=== PATIENT | male | born 1950 | race Caucasian/White ===

== ENCOUNTER → 2016-09-25 | Outpatient (CLI) | payer OTHER, MEDICARE ==
[2015-11-14 13:41] VITALS: BP 154/86
--- NOTE | 2016-09-25 13:09 | RAD ---
HISTORY: Low back pain Study: AP and lateral lumbar spine Comparison: July 19, 2014 Findings: The alignment is normal. The vertebral bodies are of average height. The disc spaces are preserved w ith the exception of disc space narrowing at L5-S1. The pedicles are intact. The SI joints are carlene l. Facet degenerative joint disease is present bilaterally L4-5, L5-S1. IMPRESSION: Degenerative disc disease L5-S1. Facet degenerative joint disease bilaterally L4-5 Reported By:
== END | disposition home or self-care (01) | DRG 552 ==
LOC: RAD 11:55
PROVIDERS: ATTEND Obstetrics & Gynecology Obstetrics
DX: M54.5 Low back pain (principal); M51.37 Other intervertebral disc degeneration, lumbosacral region; M47.896 Other spondylosis, lumbar region
CPT/HCPCS: 72100

== ENCOUNTER 2017-03-21 18:11 | Inpatient (IN) | payer OTHER, MEDICARE ==
[2017-03-21] MEDS ORDERED: SOLU-Medrol 125 MG VIAL IVP ONE (18:26)
[2017-03-21] MEDS ORDERED: DUONEB 0.5 MG/3 MG NEB ONE ×2 (18:26→18:36)
[2017-03-21] MEDS ORDERED: SOLU-Medrol 125 MG VIAL ONE (18:29)
--- NOTE | 2017-03-21 18:34 | DR.GENAD ---
HPI - PCP Primary Care Physician: mendez - Complaint/Symptoms Chief Complaint:: patient stated he has been short of breath and flu like sx for about a week. - Nurses notes reviewed Nurses Notes Review: Yes - Source History Provided: Patient - Mode of Arrival Mode of Arrival: Ambulatory - Timing Onset of Chief Complaint: 03/13/17 Came on: Gradually - Duration Duration: Constant Duration: Days - Severity Severity: Moderate PMH - PMH Past Medical History: Yes Past Medical History: Anxiety, COPD, Dyslipidemia, Hypertension Past Surgical History: Yes Surgical History: CABG/Valve Surgery, Ortho Surgery - Family History History of Family Medical Conditions: Yes Family Medical History: Cancer, [place] - Social History Does any household member use tobacco: No Alcohol Use: Rarely Do you use any recreational Drugs:: No Lives With: Family Lives Where: Home - infectious screening In the last 2 months have you had wt loss of >10#?: NO Have you had fever, night sweats or hemotysis?: No Have you traveled outside the country in the last 6 months?: No Isolation: Standard PE - Vital Signs Vitals: Temperature 99.9 F Pulse Rate [Left] 82 Pulse Rate 118 Respiratory Rate 20 Blood Pressure [Right Arm] 167/74 Blood Pressure [Left Arm] 133/61 Blood Pressure 181/83 O2 Sat by Pulse Oximetry 93 ROR - Labs Reviewed Result Diagrams: 03/21/17 18:15 03/21/17 18:20 Laboratory: 03/21/17 18:40 Sputum - Expectorated Sputum - Final WBC 16.1 X10^3/uL (3.6-10.0) H 03/21/17 18:15 RBC 5.46 X10^6/uL (4.7-6.0) 03/21/17 18:15 Hgb 15.9 g/dL (13.5-18.0) 03/21/17 18:15 Hct 47.2 % (42.0-54.0) 03/21/17 18:15 MCV 86.5 fL (80.0-100.0) 03/21/17 18:15 MCH 29.1 pg (27.0-34.0) 03/21/17 18:15 MCHC 33.7 g/dL (33.0-35.0) 03/21/17 18:15 RDW 14.2 % (11.6-16.5) 03/21/17 18:15 Plt Count 299 X10^3/uL (150.0-450.0) 03/21/17 18:15 MPV 9.7 fL (7.4-11.0) 03/21/17 18:15 Neut % 73.4 % (42.0-75.0) 03/21/17 18:15 Lymph % 12.2 % (21.0-51.0) L 03/21/17 18:15 [place] % 12.8 % (0.0-13.0) 03/21/17 18:15 Eos % 0.4 % (0.9-2.9) L 03/21/17 18:15 Baso % 1.2 % (0.2-1.0) H 03/21/17 18:15 Neut # 11.8 x10^3/uL (2.2-4.8) H 03/21/17 18:15 Lymph # 2.0 X10^3/uL (1.3-2.9) 03/21/17 18:15 [place] # 2.0 x10^3/uL (0.3-0.8) H 03/21/17 18:15 Eos # 0.1 x10^3/uL (0.0-0.2) 03/21/17 18:15 Baso # 0.2 X10^3/uL (0.0-0.1) H 03/21/17 18:15 Absolute Nucleated RBC 0.0 /100WBC 03/21/17 18:15 Sodium 135 mmol/L (136-145) L 03/21/17 18:20 Corrected Sodium TNP 03/21/17 18:20 Potassium 3.5 mmol/L (3.5-5.1) 03/21/17 18:20 Chloride 101 mmol/L (98-107) 03/21/17 18:20 Carbon Dioxide 26.0 mmol/L (21-32) 03/21/17 18:20 BUN 17 mg/dL (7-18) 03/21/17 18:20 Creatinine 1.14 mg/dL (0.70-1.30) 03/21/17 18:20 Est GFR (MDRD) Af Amer > 60 (>60) 03/21/17 18:20 Est GFR (MDRD) Non-Af > 60 (>60) 03/21/17 18:20 Glucose 99 mg/dL (65-99) 03/21/17 18:20 Calcium 8.5 mg/dL (8.5-10.1) 03/21/17 18:20 Corrected Calcium 9.1 mg/dL (8.5-10.1) 03/21/17 18:20 Total Bilirubin 1.10 mg/dL (0.2-1.0) H 03/21/17 18:20 AST 16 Units/L (15-37) 03/21/17 18:20 ALT 27 Units/L (12-78) 03/21/17 18:20 Alkaline Phosphatase 55 Units/L (46-116) 03/21/17 18:20 Creatine Kinase 46 Units/L (39-308) 03/21/17 18:20 CK-MB (CK-2) < 1.0 ng/mL (0-4.0) 03/21/17 18:20 CK/CKMB % Calc 2.2 % (<4) 03/21/17 18:20 Troponin I < 0.02 ng/mL (0-1.5) 03/21/17 18:20 Total Protein 7.2 g/dL (6.4-8.2) 03/21/17 18:20 Albumin 3.2 g/dL (3.4-5.0) L 03/21/17 18:20 Globulin 4.0 g/dL (2.5-4.5) 03/21/17 18:20 Albumin/Globulin Ratio 0.8 Ratio (1.1-2.1) L 03/21/17 18:20 Specimen Type Clean catch urine 03/21/17 22:07 Urine Color Lisa (YELLOW) 03/21/17 22:07 Urine Appearance Clear (CLEAR) 03/21/17 22:07 Urine pH 5.0 (5.0 - 8.0) 03/21/17 22:07 Ur Specific [place] 1.015 (1.000-1.030) 03/21/17 22:07 Urine Protein 1+ (NEGATIVE) 03/21/17 22:07 Urine Glucose (UA) 4+ (NEGATIVE) 03/21/17 22:07 Urine Ketones 2+ (NEGATIVE) 03/21/17 22:07 Urine Occult Blood Negative (NEGATIVE) 03/21/17 22:07 Urine Nitrite Negative (NEGATIVE) 03/21/17 22:07 Urine Bilirubin Negative (NEGATIVE) 03/21/17 22:07 Urine Urobilinogen 1+ (NORMAL) 03/21/17 22:07 Ur Leukocyte Esterase 1+ (NEGATIVE) 03/21/17 22:07 Urine RBC None seen /HPF (NEGATIVE) 03/21/17 22:07 Urine WBC 0-2 /HPF (NEGATIVE) 03/21/17 22:07 Ur Squamous Epith Cells Few /HPF (NEGATIVE) 03/21/17 22:07 Urine Bacteria Trace /HPF (NEGATIVE) 03/21/17 22:07 Urine Mucus Numerous /HPF (NEGATIVE) 03/21/17 22:07 Ur Culture Indicated? No/not indicated 03/21/17 22:07 Influenza Type A (PCR) Negative (NEGATIVE) 03/21/17 18:40 Influenza Type B (PCR) Negative (NEGATIVE) 03/21/17 18:40 Streptococcus Screen Negative (NEGATIVE) 03/21/17 20:06 - Discharge Plan Condition: Stable - Follow ups/Referrals Follow ups/Referrals: MAGALY MENDEZ [Primary Care Provider] - 3 days - Instructions Instructions: Influenza, Adult, [id number] Additional Instructions: RETURN TO ED IF WORSE.
[2017-03-21 18:43] LABS: BASOPHILS # (AUTO) 0.2 X10^3/uL (0.0-0.1); BASOPHILS % (AUTO) 1.2 % (0.2-1.0); EOSINOPHILS # (AUTO) 0.1 x10^3/uL (0.0-0.2); EOSINOPHILS % (AUTO) 0.4 % (0.9-2.9); HEMATOCRIT 47.2 % (42.0-54.0); HEMOGLOBIN 15.9 g/dL (13.5-18.0); LYMPHOCYTES % (AUTO) 12.2 % (21.0-51.0); MEAN CORPUSCULAR HEMOGLOBIN 29.1 pg (27.0-34.0); MEAN CORPUSCULAR HGB CONC 33.7 g/dL (33.0-35.0); MEAN CORPUSCULAR VOLUME 86.5 fL (80.0-100.0); MEAN PLATELET VOLUME 9.7 fL (7.4-11.0); MONOCYTES % (AUTO) 12.8 % (0.0-13.0); NEUTROPHILS # (AUTO) 11.8 x10^3/uL (2.2-4.8); NEUTROPHILS % (AUTO) 73.4 % (42.0-75.0); PLATELET COUNT 299 X10^3/uL (150.0-450.0); RED BLOOD COUNT 5.46 X10^6/uL (4.7-6.0); RED CELL DISTRIBUTION WIDTH 14.2 % (11.6-16.5); WHITE BLOOD COUNT 16.1 X10^3/uL (3.6-10.0)
[2017-03-21 18:58] LABS: BLOOD UREA NITROGEN 17 mg/dL (7-18); CALCIUM 8.5 mg/dL (8.5-10.1); CHLORIDE 101 mmol/L (98-107); CREATININE 1.14 mg/dL (0.70-1.30); SODIUM 135 mmol/L (136-145); TROPONIN I < 0.02 ng/mL (0-1.5); eGFR BLACK RACES > 60 (>60); eGFR NON BLACK RACES > 60 (>60)
[2017-03-21 19:03] LABS: ALANINE AMINOTRANSFERASE 27 Units/L (12-78); ALBUMIN 3.2 g/dL (3.4-5.0); ALKALINE PHOSPHATASE 55 Units/L (46-116); ASPARTATE AMINO TRANSFERASE 16 Units/L (15-37); CKMB % 2.2 % (<4); COR CA(FOR HYPOALB) 9.1 mg/dL (8.5-10.1); CREATINE KINASE 46 Units/L (39-308); CREATINE KINASE MB < 1.0 ng/mL (0-4.0); TOTAL PROTEIN 7.2 g/dL (6.4-8.2)
--- NOTE | 2017-03-21 19:29 | RAD ---
PICC chest AP portable Indication: Dyspnea. Flu-like symptoms. Comparison: 07/21/2014 Findings: There is no pneumothorax or effusion. There is no consolidation. Sternotomy change noted. Impression: No acute chest process or change from the prior. Reported By:
[2017-03-21] MEDS ORDERED: ROCEPHIN 1 GM IV PREMIX 1 GM/50 ML IV.SOLN. IV ONE ×2 (20:07→20:09)
[2017-03-21 22:34] LABS: BILIRUBIN,URINE NEGATIVE (NEGATIVE); BLOOD/HEMOGLOBIN,URINE NEGATIVE (NEGATIVE); GLUCOSE, URINE 4+ (NEGATIVE); KETONES,URINE 2+ (NEGATIVE); LEUKOCYTE ESTERASE ,URINE 1+ (NEGATIVE); NITRITES,URINE NEGATIVE (NEGATIVE); PROTEIN,URINE 1+ (NEGATIVE); UROBILINOGEN,URINE 1+ (NORMAL)
[2017-03-21 23:00] LABS: APPEARANCE,URINE CLEAR (CLEAR); BACTERIA,URINE TRACE /HPF (NEGATIVE); COLOR,URINE AMBER (YELLOW); MUCUS,URINE NUMEROUS /HPF (NEGATIVE); RBC,URINE NONE SEEN /HPF (NEGATIVE); SQUAMOUS EPITHELIAL CELL,UR FEW /HPF (NEGATIVE)
[2017-03-21] MEDS ORDERED: TUSSIONEX PENNKINETIC SUSP PO PRN (23:11)
[2017-03-22] MEDS: CIPRO IV 400 MG PREMIX* 400 MG/200 ML IV.SOLN. IV SCH ×2 (00:27→10:47)
[2017-03-22] MEDS: NS 1000 ML 1,000 ML IV SCH ×2 (00:27→19:30)
[2017-03-22 01:01] VITALS: BMI 23.6
[2017-03-22] MEDS: DUONEB 0.5 MG/3 MG NEB SCH ×6 (01:25→20:57)
[2017-03-22 06:14] LABS: BASOPHILS # (AUTO) 0.1 X10^3/uL (0.0-0.1); BASOPHILS % (AUTO) 0.5 % (0.2-1.0); HEMATOCRIT 45.7 % (42.0-54.0); HEMOGLOBIN 15.3 g/dL (13.5-18.0); LYMPHOCYTES # (AUTO) 0.6 X10^3/uL (1.3-2.9); LYMPHOCYTES % (AUTO) 6.2 % (21.0-51.0); MEAN CORPUSCULAR HEMOGLOBIN 29.2 pg (27.0-34.0); MEAN CORPUSCULAR HGB CONC 33.4 g/dL (33.0-35.0); MEAN CORPUSCULAR VOLUME 87.2 fL (80.0-100.0); MONOCYTES # (AUTO) 0.6 x10^3/uL (0.3-0.8); MONOCYTES % (AUTO) 5.3 % (0.0-13.0); NEUTROPHILS # (AUTO) 9.1 x10^3/uL (2.2-4.8); PLATELET COUNT 288 X10^3/uL (150.0-450.0); RED BLOOD COUNT 5.24 X10^6/uL (4.7-6.0); RED CELL DISTRIBUTION WIDTH 14.1 % (11.6-16.5); WHITE BLOOD COUNT 10.4 X10^3/uL (3.6-10.0)
[2017-03-22 06:27] LABS: ALANINE AMINOTRANSFERASE 25 Units/L (12-78); ALKALINE PHOSPHATASE 52 Units/L (46-116); ASPARTATE AMINO TRANSFERASE 14 Units/L (15-37); BLOOD UREA NITROGEN 19 mg/dL (7-18); CALCIUM 8.7 mg/dL (8.5-10.1); CARBON DIOXIDE 26.6 mmol/L (21-32); CHLORIDE 100 mmol/L (98-107); COR CA(FOR HYPOALB) 9.5 mg/dL (8.5-10.1); COR NA(FOR HYPERGLY) 139 mmol/L (136-145); CREATININE 1.09 mg/dL (0.70-1.30); SODIUM 136 mmol/L (136-145); eGFR BLACK RACES > 60 (>60); eGFR NON BLACK RACES > 60 (>60)
[2017-03-22 07:11] LABS: CKMB % 3.1 % (<4); CREATINE KINASE 35 Units/L (39-308); CREATINE KINASE MB 1.1 ng/mL (0-4.0); TROPONIN I < 0.02 ng/mL (0-1.5)
[2017-03-22] MEDS ORDERED: SOLU-Medrol 40 MG VIAL IVP SCH ×2 (09:00→21:00)
[2017-03-22] MEDS ORDERED: ROCEPHIN 1 GM IV PREMIX 1 GM/50 ML IV.SOLN. IV SCH (09:00)
[2017-03-22] MEDS ORDERED: ROCEPHIN VIAL 1 GM 1 GM in NS 50 ML IV + SPIKE MINIBAG* 50 ML IV SCH (09:00)
[2017-03-22 11:15] LABS: CKMB % 3.1 % (<4); CREATINE KINASE 32 Units/L (39-308); CREATINE KINASE MB < 1.0 ng/mL (0-4.0); TROPONIN I < 0.02 ng/mL (0-1.5)
[2017-03-22] MEDS ORDERED: TYGACIL 50 MG VIAL 100 MG in NS 100 ML IV 100 ML IV ONE (11:23)
--- NOTE | 2017-03-22 13:06 | CT ---
History: Cough and fever and headache Study: CT of the paranasal sinuses. Sagittal and coronal reformations were provided. Findings: There is patchy mucosal thickening in the ethmoid sinuses. There are air-fluid levels in th e maxillary sinuses with mild mucosal thickening. There is focal septal deviation toward the left. Th e sphenoid and frontal sinuses are clear. The ostiomeatal complexes are obstructed with soft tissue d ensity. Impression: Maxillary and ethmoid sinusitis with obstructed ostiomeatal complexes. Reported By:
[2017-03-22] MEDS: FLONASE NASAL SPRAY ENOSTRIL SCH ×2 (14:04→21:04)
[2017-03-22] MEDS: FORTAZ or TAZICEF INJ 2 GM in NS 50 ML IV 50 ML IV SCH ×3 (15:09→21:04)
[2017-03-22] MEDS: TYGACIL 50 MG VIAL 50 MG in NS 100 ML IV 100 ML IV SCH (21:04)
[2017-03-22] MEDS: FLOMAX PO SCH (21:04)
[2017-03-22] MEDS ORDERED: MAALOX or MYLANTA PO PRN (22:25)
[2017-03-23] MEDS: DUONEB 0.5 MG/3 MG NEB SCH ×6 (00:50→21:15)
[2017-03-23 05:35] LABS: BASOPHILS % (AUTO) 0.2 % (0.2-1.0); HEMATOCRIT 41.4 % (42.0-54.0); HEMOGLOBIN 14.2 g/dL (13.5-18.0); LYMPHOCYTES % (AUTO) 5.3 % (21.0-51.0); MEAN CORPUSCULAR HEMOGLOBIN 30.3 pg (27.0-34.0); MEAN CORPUSCULAR HGB CONC 34.4 g/dL (33.0-35.0); MEAN CORPUSCULAR VOLUME 88.1 fL (80.0-100.0); MONOCYTES # (AUTO) 1.3 x10^3/uL (0.3-0.8); MONOCYTES % (AUTO) 6.9 % (0.0-13.0); NEUTROPHILS # (AUTO) 16.5 x10^3/uL (2.2-4.8); NEUTROPHILS % (AUTO) 87.6 % (42.0-75.0); PLATELET COUNT 302 X10^3/uL (150.0-450.0); RED CELL DISTRIBUTION WIDTH 13.8 % (11.6-16.5); WHITE BLOOD COUNT 18.8 X10^3/uL (3.6-10.0)
[2017-03-23 05:37] LABS: ALANINE AMINOTRANSFERASE 31 Units/L (12-78); ALBUMIN 2.6 g/dL (3.4-5.0); ALKALINE PHOSPHATASE 49 Units/L (46-116); ASPARTATE AMINO TRANSFERASE 18 Units/L (15-37); BLOOD UREA NITROGEN 22 mg/dL (7-18); CALCIUM 8.1 mg/dL (8.5-10.1); CARBON DIOXIDE 24.4 mmol/L (21-32); CHLORIDE 105 mmol/L (98-107); COR CA(FOR HYPOALB) 9.2 mg/dL (8.5-10.1); COR NA(FOR HYPERGLY) 139 mmol/L (136-145); SODIUM 138 mmol/L (136-145); eGFR BLACK RACES > 60 (>60); eGFR NON BLACK RACES > 60 (>60)
[2017-03-23] MEDS: FORTAZ or TAZICEF INJ 2 GM in NS 50 ML IV 50 ML IV SCH ×3 (05:42→22:20)
[2017-03-23] MEDS: NS 1000 ML 1,000 ML IV SCH ×3 (06:09→15:07)
[2017-03-23] MEDS ORDERED: ZOFRAN INJ 4 MG VIAL ONE (08:12)
[2017-03-23] MEDS ORDERED: ZOFRAN INJ 4 MG VIAL IVP PRN (08:12)
[2017-03-23] MEDS: TYGACIL 50 MG VIAL 50 MG in NS 100 ML IV 100 ML IV SCH ×2 (08:41→20:48)
[2017-03-23] MEDS: FLONASE NASAL SPRAY ENOSTRIL SCH ×2 (08:41→20:47)
[2017-03-23] MEDS ORDERED: PHENERGAN INJ 25 MG ONE (10:30)
[2017-03-23] MEDS ORDERED: PHENERGAN INJ 25 MG IV PRN (10:32)
[2017-03-23] MEDS ORDERED: TESSALON PERLES PO PRN (11:28)
[2017-03-23] MEDS ORDERED: AMBIEN PO PRN (11:29)
[2017-03-23] MEDS: SOLU-Medrol 125 MG VIAL IVP SCH ×2 (14:02→22:20)
[2017-03-23] MEDS: PROTONIX INJ 40 MG VIAL IVP SCH ×2 (14:03→20:47)
[2017-03-23] MEDS: FLOMAX PO SCH (20:47)
[2017-03-24] MEDS: DUONEB 0.5 MG/3 MG NEB SCH ×4 (01:20→13:29)
[2017-03-24] MEDS: FLONASE NASAL SPRAY ENOSTRIL SCH (04:00)
[2017-03-24] MEDS: NS 1000 ML 1,000 ML IV SCH (04:30)
[2017-03-24 05:07] LABS: BASOPHILS % (AUTO) 0.2 % (0.2-1.0); HEMATOCRIT 41.8 % (42.0-54.0); LYMPHOCYTES # (AUTO) 0.5 X10^3/uL (1.3-2.9); LYMPHOCYTES % (AUTO) 6.1 % (21.0-51.0); MEAN CORPUSCULAR HEMOGLOBIN 29.1 pg (27.0-34.0); MEAN CORPUSCULAR HGB CONC 33.4 g/dL (33.0-35.0); MEAN CORPUSCULAR VOLUME 87.2 fL (80.0-100.0); MONOCYTES # (AUTO) 0.2 x10^3/uL (0.3-0.8); MONOCYTES % (AUTO) 1.8 % (0.0-13.0); NEUTROPHILS # (AUTO) 8.2 x10^3/uL (2.2-4.8); NEUTROPHILS % (AUTO) 91.9 % (42.0-75.0); PLATELET COUNT 291 X10^3/uL (150.0-450.0); RED BLOOD COUNT 4.79 X10^6/uL (4.7-6.0); RED CELL DISTRIBUTION WIDTH 13.9 % (11.6-16.5); WHITE BLOOD COUNT 8.9 X10^3/uL (3.6-10.0)
[2017-03-24 05:18] LABS: ALANINE AMINOTRANSFERASE 33 Units/L (12-78); ALBUMIN 2.5 g/dL (3.4-5.0); ALKALINE PHOSPHATASE 47 Units/L (46-116); ASPARTATE AMINO TRANSFERASE 16 Units/L (15-37); BLOOD UREA NITROGEN 22 mg/dL (7-18); CALCIUM 8.1 mg/dL (8.5-10.1); CARBON DIOXIDE 24.8 mmol/L (21-32); CHLORIDE 105 mmol/L (98-107); COR CA(FOR HYPOALB) 9.3 mg/dL (8.5-10.1); COR NA(FOR HYPERGLY) 140 mmol/L (136-145); CREATININE 1.12 mg/dL (0.70-1.30); SODIUM 139 mmol/L (136-145); TOTAL PROTEIN 5.9 g/dL (6.4-8.2); eGFR BLACK RACES > 60 (>60); eGFR NON BLACK RACES > 60 (>60)
[2017-03-24 05:27] LABS: BAND NEUTROPHILS % 2 % (0-10); PLATELET MORPHOLOGY COMMENT NORMAL (NORMAL)
[2017-03-24] MEDS: SOLU-Medrol 125 MG VIAL IVP SCH ×3 (06:01→13:41)
[2017-03-24] MEDS: FORTAZ or TAZICEF INJ 2 GM in NS 50 ML IV 50 ML IV SCH ×2 (06:02→13:42)
--- NOTE | 2017-03-24 06:46 | RAD ---
HISTORY: Cough, fever, headache Study: Chest AP portable Comparison: 03/21/2017 Findings: The trachea is midline. The cardiac silhouette is unremarkable. The lungs are clear without focal i nfiltrate or effusion. The bony thorax is unremarkable. The patient is status post median sternotom y and CABG. IMPRESSION: 1. No acute cardiopulmonary disease. Reported By:
[2017-03-24] MEDS: PROTONIX INJ 40 MG VIAL IVP SCH (08:26)
[2017-03-24] MEDS: TYGACIL 50 MG VIAL 50 MG in NS 100 ML IV 100 ML IV SCH (08:26)
[2017-03-24 13:05] VITALS: BP 158/71
[2017-03-24] MEDS ORDERED: NS 100 ML IV 100 ML IV ONE (13:30)
[2017-03-24] MEDS ORDERED: FORTAZ or TAZICEF INJ ONE (13:31)
[2017-03-24] MEDS ORDERED: PREVNAR 13 IM ONE (16:41)
== END 2017-03-24 17:15 | disposition home or self-care (01) | DRG 202 ==
LOC: ER 18:11 → MED/SURG 22:59 → OBSVTOIN 03-23 11:30
PROVIDERS: ADMIT Internal Medicine; ATTEND Obstetrics & Gynecology Obstetrics
DX: J20.8 Acute bronchitis due to other specified organisms (principal); J44.1 Chronic obstructive pulmonary disease with (acute) exacerbation; R06.03 Acute respiratory distress; R06.02 Shortness of breath; E78.2 Mixed hyperlipidemia; I10 Essential (primary) hypertension; R94.31 Abnormal electrocardiogram [ECG] [EKG]; R13.12 Dysphagia, oropharyngeal phase
CPT/HCPCS: 36415; 70486; 71010; 80053; 81001; 82550; 82553; 83036; 84484; 85025; 87040; 87070; 87205; 87502; 87880; 93005; 93010; 94644; 94760; 96365; 96374; 96375; 99282; 99284; A4222; C9113; 90670; G0378; J0696; J0713; J0744; J2405; J2550; J2920; J2930; J7620

== ENCOUNTER 2021-10-03 08:14 | Inpatient (IN) ==
--- NOTE | 2021-10-03 08:24 | DR.SOBA ---
HPI Time Seen Time Seen by Provider: 10/03/21 08:22 Complaints Chief Complaint Doctors Comments: 71 y/o male presents here for evaluation. C/o shortness if breath, back pain over the past week. Has been fighting back pain over the past 1 1/2 years. + sharp, right side of back, low back, radiates up t he right side. Worse with moving, nothing makes it better. worse over the past week. Has had a cold over the past week, + clearing throat a lot. + coughing, can't get it up. Had fever first two days. + dyspnea, worse with exertion. Has been nauseous, constipated. Denies vomiting, no urinary issues. Reviewed Nurses Notes Reviewed: Yes PMH PMH Past Medical History: Anxiety, COPD, Coronary Artery Disease, Dyslipidemia and Hypertension Past Surgical History: Yes Surgical History: CABG/Valve Surgery and Ortho Surgery (L AKA) Family History Family Medical History: Cancer and [place] Social History Does patient currently use any type of tobacco product: No Have you used tobacco products in the last 12 months: Yes (quit 6 months ago) Do you use any recreational Drugs:: No ROS Review of Systems Constitutional: Fever and Weakness Eyes: No Symptoms Reported ENTM: Nose Congestion Respiratoy: Non-Productive Cough and Short of Breath Cardiovascular: Chest Pain (mild chest soreness) Gastrointestinal/Abdominal: Constipation and Nausea Genitourinary: No Symptoms Reported Neurological: Weakness Musculoskeletal: Back Pain Integumentary: No Symptoms Reported Hematologic/Lymphatic: No Symptoms Reported Psychiatric: No Symptoms Reported All Other Systems: Reviewed and Negative PE Vital Signs Vitals: Temperature 97.9 F Pulse Rate 104 Respiratory Rate 21 Blood Pressure [Right Arm] 92/60 Blood Pressure [Left Arm] 158/70 Blood Pressure 172/108 O2 Sat by Pulse Oximetry 98 General Limitations: No Limitations General Appearance: Alert and In Distress (mild, respiratory) Head Head Exam: Normal Inspection Eyes Eye exam: Normal Appearance ENT ENT Exam: Normal Exam and Mucous Membranes Moist Neck Neck Exam: Normal Inspection; negative Tenderness Chest Chest Inspection: Normal Inspection Respiratory Respiratory Exam: Respiratory Distress (mild) Respiratory Exam: Bilateral: Decreased Breath Sounds (at the bases) Abdominal Exam Abdominal Exam: Normal Bowel Sounds and Soft; negative Tenderness Extremities Extremities Exam: Other (+ L AKA); negative Edema Back Back Exam: Tenderness (right paralumbar regions, thoracic/lumbar areas) Neurologic Neurological Exam: Alert, Oriented X3 and CN II-XII Intact; negative Motor Sensory Deficit Psychiatric Psychiatric Exam: Normal Affect Skin Skin Exam: Warm and Dry MDM Differential Diagnosis Differential Diagnosis: Bronchitis, CHF, COPD, Mycardial Infarction, Pneumonia, URI and Other (Covid, flu) COURSE Treatment Treatment: 71 y/o male with worsening shortness of breath, R back pain over past week. W/u initiated. Pt given IV morphine for pain. 0946 - pt with acute CHF, recent non STEMI. Dr Maurer will admit here. Given IV lasix, PO ASA. Reevaluation 1st: Improved (feeling a bit better with morphine. + troponin 76.3/BNP 2,550. Discussed with Dr Maurer, will admit. ) ROR Labs Reviewed Laboratory Results Reviewed?: Yes Result Diagrams: 10/03/21 08:37 10/03/21 08:37 Laboratory: WBC 6.3 X10^3/uL (3.6-10.0) 10/03/21 08:37 RBC 4.76 X10^6/uL (4.7-6.0) 10/03/21 08:37 Hgb 14.2 g/dL (13.5-18.0) 10/03/21 08:37 Hct 42.9 % (42.0-54.0) 10/03/21 08:37 MCV 90.2 fL (80.0-100.0) 10/03/21 08:37 MCH 29.8 pg (27.0-34.0) 10/03/21 08:37 MCHC 33.0 g/dL (33.0-35.0) 10/03/21 08:37 RDW 14.6 % (11.6-16.5) 10/03/21 08:37 Plt Count 234 X10^3/uL (150.0-450.0) 10/03/21 08:37 MPV 10.6 fL (7.4-11.0) 10/03/21 08:37 Neut % (Auto) 71.5 % (42.0-75.0) 10/03/21 08:37 Lymph % (Auto) 15.5 % (21.0-51.0) L 10/03/21 08:37 [place] % (Auto) 9.6 % (0.0-13.0) 10/03/21 08:37 Eos % (Auto) 2.4 % (0.9-2.9) 10/03/21 08:37 Baso % (Auto) 1.0 % (0.2-1.0) 10/03/21 08:37 Neut # (Auto) 4.5 x10^3/uL (2.2-4.8) 10/03/21 08:37 Lymph # (Auto) 1.0 X10^3/uL (1.3-2.9) L 10/03/21 08:37 [place] # (Auto) 0.6 x10^3/uL (0.3-0.8) 10/03/21 08:37 Eos # (Auto) 0.2 x10^3/uL (0.0-0.2) 10/03/21 08:37 Baso # (Auto) 0.1 X10^3/uL (0.0-0.1) 10/03/21 08:37 Absolute Nucleated RBC 0.3 /100WBC 10/03/21 08:37 Sodium 139 mmol/L (136-145) 10/03/21 08:37 Corrected Sodium TNP 10/03/21 08:37 Potassium 4.7 mmol/L (3.5-5.1) 10/03/21 08:37 Chloride 103 mmol/L (98-107) 10/03/21 08:37 Carbon Dioxide 30.6 mmol/L (21-32) 10/03/21 08:37 BUN 20 mg/dL (7-18) H 10/03/21 08:37 Creatinine 1.54 mg/dL (0.70-1.30) H 10/03/21 08:37 Est GFR (MDRD) Af Amer 57 (>60) L 10/03/21 08:37 Est GFR (MDRD) Non-Af 47 (>60) L 10/03/21 08:37 Glucose 95 mg/dL (65-99) 10/03/21 08:37 Calcium 8.6 mg/dL (8.5-10.1) 10/03/21 08:37 Corrected Calcium 9.2 mg/dL (8.5-10.1) 10/03/21 08:37 Total Bilirubin 0.60 mg/dL (0.2-1.0) 10/03/21 08:37 AST 14 Units/L (15-37) L 10/03/21 08:37 ALT 20 Units/L (12-78) 10/03/21 08:37 Alkaline Phosphatase 497 Units/L (46-116) H 10/03/21 08:37 Creatine Kinase 26 Units/L (39-308) L 10/03/21 08:37 CK-MB (CK-2) 1.1 ng/mL (0-4.0) 10/03/21 08:37 CK/CKMB % Calc 4.2 % (<4) 10/03/21 08:37 Troponin I High Sens 76.3 ng/L (4.0-60.0) H* 10/03/21 08:37 B-Natriuretic Peptide 2550 pg/mL (0-79) H* 10/03/21 08:37 Total Protein 6.7 g/dL (6.4-8.2) 10/03/21 08:37 Albumin 3.2 g/dL (3.4-5.0) L 10/03/21 08:37 Globulin 3.5 g/dL (2.5-4.5) 10/03/21 08:37 Albumin/Globulin Ratio 0.9 Ratio (1.1-2.1) L 10/03/21 08:37 Specimen Type Clean catch urine 10/03/21 09:54 Urine Color Yellow (YELLOW) 10/03/21 09:54 Urine Appearance Clear (CLEAR) 10/03/21 09:54 Urine pH 6.0 (5.0 - 8.0) 10/03/21 09:54 Ur Specific [place] 1.010 (1.000-1.030) 10/03/21 09:54 Urine Protein 1+ (NEGATIVE) 10/03/21 09:54 Urine Glucose (UA) Negative (NEGATIVE) 10/03/21 09:54 Urine Ketones 1+ (NEGATIVE) 10/03/21 09:54 Urine Blood 1+ (NEGATIVE) 10/03/21 09:54 Urine Nitrite Negative (NEGATIVE) 10/03/21 09:54 Urine Bilirubin Negative (NEGATIVE) 10/03/21 09:54 Urine Urobilinogen Normal (NORMAL) 10/03/21 09:54 Ur Leukocyte Esterase Negative (NEGATIVE) 10/03/21 09:54 Urine RBC 0-2 /HPF (0-3) 10/03/21 09:54 Urine WBC 0-2 /HPF (0-5) 10/03/21 09:54 Ur Squamous Epith Cells Rare /HPF (NEGATIVE) 10/03/21 09:54 Urine Bacteria Negative /HPF (NEGATIVE) 10/03/21 09:54 Ur Culture Indicated? No/not indicated 10/03/21 09:54 SARS-CoV-2 (PCR) Negative (NEGATIVE) 10/03/21 08:37 Influenza Type A (PCR) Negative (NEGATIVE) 10/03/21 08:37 Influenza Type B (PCR) Negative (NEGATIVE) 10/03/21 08:37 RSV (PCR) Negative (NEGATIVE) 10/03/21 08:37 Elevated troponin, BNP XRAY XRAY Interpreted by: Both X-ray Results: +cardiomegaly, + pulmonary vascular congestion, some fluid in minor fissure EKG Rate: 113 [place]: LAD Rhythm: ST Block: None Hypertrophy: LAE Opioid Opioid Risk Tool Age (Valerio box if 16-45): No History of Preadolescent Sexual Abuse: No Total: 0 Total Score Risk Category: Low Risk Copyright: Duglas VALENTIN predicting aberrant behaviors Discharge Plan Diagnosis Discharge Problem: Congestive heart failure (CHF), Recent non-ST elevation myocardial infarction Discharge Plan Patient Disposition: ADMITTED INPATIENT Condition: Stable Orders to Discharge Patient Discharge Orders: Transfer (Routine); Ordered 10/03/21 Ordered By: Oscar Velazquez
[2021-10-03 08:31] VITALS: BMI 25.8
[2021-10-03 08:53] LABS: BASOPHILS # (AUTO) 0.1 X10^3/uL (0.0-0.1); EOSINOPHILS # (AUTO) 0.2 x10^3/uL (0.0-0.2); EOSINOPHILS % (AUTO) 2.4 % (0.9-2.9); HEMATOCRIT 42.9 % (42.0-54.0); HEMOGLOBIN 14.2 g/dL (13.5-18.0); LYMPHOCYTES % (AUTO) 15.5 % (21.0-51.0); MEAN CORPUSCULAR HEMOGLOBIN 29.8 pg (27.0-34.0); MEAN CORPUSCULAR VOLUME 90.2 fL (80.0-100.0); MEAN PLATELET VOLUME 10.6 fL (7.4-11.0); MONOCYTES # (AUTO) 0.6 x10^3/uL (0.3-0.8); MONOCYTES % (AUTO) 9.6 % (0.0-13.0); NEUTROPHILS # (AUTO) 4.5 x10^3/uL (2.2-4.8); NEUTROPHILS % (AUTO) 71.5 % (42.0-75.0); RED BLOOD COUNT 4.76 X10^6/uL (4.7-6.0); RED CELL DISTRIBUTION WIDTH 14.6 % (11.6-16.5); WHITE BLOOD COUNT 6.3 X10^3/uL (3.6-10.0)
--- NOTE | 2021-10-03 09:05 | RAD ---
HISTORYShort of breathSTUDYPortable AP [id number]/23/2021FINDINGSThere is slight interval increase in heart size. Sternal wires again noted. Increasing distension of the pulmonary vasculature with diffuse interstitial process now identified. No consolidation or pleural fluid seen.IMPRESSIONDescribed findings are consistent with interval development of CHF and interstitial edema.Electronically signed by: MEGAN ASTORGA (Oct 03, 2021 09:03:14)
[2021-10-03] MEDS ORDERED: MORPHINE SULFATE INJ 4 MG IVP ONE ×2 (09:06→09:50)
[2021-10-03] MEDS ORDERED: MORPHINE SULFATE INJ 4 MG ONE ×2 (09:09→09:51)
[2021-10-03 09:16] LABS: ALANINE AMINOTRANSFERASE 20 Units/L (12-78); ALBUMIN 3.2 g/dL (3.4-5.0); ALKALINE PHOSPHATASE 497 Units/L (46-116); ASPARTATE AMINO TRANSFERASE 14 Units/L (15-37); BLOOD UREA NITROGEN 20 mg/dL (7-18); CALCIUM 8.6 mg/dL (8.5-10.1); CARBON DIOXIDE 30.6 mmol/L (21-32); CHLORIDE 103 mmol/L (98-107); CKMB % 4.2 % (<4); COR CA(FOR HYPOALB) 9.2 mg/dL (8.5-10.1); CREATINE KINASE 26 Units/L (39-308); CREATINE KINASE MB 1.1 ng/mL (0-4.0); CREATININE 1.54 mg/dL (0.70-1.30); SODIUM 139 mmol/L (136-145); TOTAL PROTEIN 6.7 g/dL (6.4-8.2); eGFR NON BLACK RACES 47 (>60)
[2021-10-03] MEDS ORDERED: LASIX IVP ONE ×2 (09:32→09:34)
[2021-10-03] MEDS ORDERED: ASPIRIN PO STA (09:33)
[2021-10-03] MEDS ORDERED: ASPIRIN ONE (09:34)
[2021-10-03 10:04] LABS: BILIRUBIN,URINE NEGATIVE (NEGATIVE); BLOOD/HEMOGLOBIN,URINE 1+ (NEGATIVE); GLUCOSE, URINE NEGATIVE (NEGATIVE); KETONES,URINE 1+ (NEGATIVE); LEUKOCYTE ESTERASE ,URINE NEGATIVE (NEGATIVE); NITRITES,URINE NEGATIVE (NEGATIVE); PROTEIN,URINE 1+ (NEGATIVE); UROBILINOGEN,URINE NORMAL (NORMAL)
[2021-10-03 10:16] LABS: APPEARANCE,URINE CLEAR (CLEAR); COLOR,URINE YELLOW (YELLOW)
[2021-10-03 10:17] LABS: BACTERIA,URINE NEGATIVE /HPF (NEGATIVE); RBC,URINE 0-2 /HPF (0-3); SQUAMOUS EPITHELIAL CELL,UR RARE /HPF (NEGATIVE)
[2021-10-03] MEDS ORDERED: DUONEB 0.5 MG/3 MG (3 mL) NEB ONE (11:56)
[2021-10-03] MEDS: DUONEB 0.5 MG/3 MG (3 mL) NEB SCH ×3 (12:05→20:05)
[2021-10-03] MEDS: TYLENOL 325 MG TAB PO PRN (14:48)
[2021-10-03] MEDS ORDERED: PULMICORT NEB TX 0.5 MG NEB ONE (19:06)
[2021-10-03] MEDS: PULMICORT NEB TX 0.5 MG NEB SCH (20:05)
[2021-10-03] MEDS ORDERED: ASPIRIN 81 MG CHEWTAB PO ONE (20:35)
[2021-10-03] MEDS ORDERED: ASPIRIN 81 MG CHEWTAB ONE (20:37)
[2021-10-03] MEDS: LIPITOR TAB 80 MG PO SCH (20:54)
[2021-10-03] MEDS: COREG TAB 6.25 MG PO SCH (20:54)
[2021-10-03] MEDS: LASIX IVP SCH (20:54)
[2021-10-03] MEDS ORDERED: ENTRESTO 24/26 MG TAB PO SCH (21:00)
[2021-10-03] MEDS ORDERED: SACUBITRIL VALSARTAN PO SCH (21:00)
[2021-10-03] MEDS ORDERED: HEPARIN SODIUM INJ 5000 UNITS IVP ONE (22:54)
[2021-10-03] MEDS: HEPARIN SODIUM IN D5W 25,000 UNITS/500 ML BAG IV PRN (23:30)
[2021-10-04] MEDS: HEPARIN SODIUM IN D5W 25,000 UNITS/500 ML BAG IV PRN ×2 (00:04→23:30)
[2021-10-04] MEDS: DUONEB 0.5 MG/3 MG (3 mL) NEB SCH ×6 (00:31→20:39)
[2021-10-04 05:59] LABS: BASOPHILS # (AUTO) 0.2 X10^3/uL (0.0-0.1); BASOPHILS % (AUTO) 2.9 % (0.2-1.0); EOSINOPHILS # (AUTO) 0.1 x10^3/uL (0.0-0.2); EOSINOPHILS % (AUTO) 2.5 % (0.9-2.9); HEMATOCRIT 39.6 % (42.0-54.0); HEMOGLOBIN 13.3 g/dL (13.5-18.0); LYMPHOCYTES # (AUTO) 0.9 X10^3/uL (1.3-2.9); LYMPHOCYTES % (AUTO) 15.9 % (21.0-51.0); MEAN CORPUSCULAR HEMOGLOBIN 29.9 pg (27.0-34.0); MEAN CORPUSCULAR HGB CONC 33.5 g/dL (33.0-35.0); MEAN CORPUSCULAR VOLUME 89.4 fL (80.0-100.0); MEAN PLATELET VOLUME 10.8 fL (7.4-11.0); MONOCYTES # (AUTO) 0.6 x10^3/uL (0.3-0.8); MONOCYTES % (AUTO) 10.6 % (0.0-13.0); NEUTROPHILS % (AUTO) 68.1 % (42.0-75.0); RED BLOOD COUNT 4.43 X10^6/uL (4.7-6.0); RED CELL DISTRIBUTION WIDTH 14.1 % (11.6-16.5); WHITE BLOOD COUNT 5.8 X10^3/uL (3.6-10.0)
[2021-10-04 06:14] LABS: ALANINE AMINOTRANSFERASE 17 Units/L (12-78); ALBUMIN 2.9 g/dL (3.4-5.0); ALKALINE PHOSPHATASE 460 Units/L (46-116); ASPARTATE AMINO TRANSFERASE 13 Units/L (15-37); BLOOD UREA NITROGEN 21 mg/dL (7-18); CALCIUM 8.1 mg/dL (8.5-10.1); CARBON DIOXIDE 27.8 mmol/L (21-32); CHLORIDE 99 mmol/L (98-107); CREATININE 1.71 mg/dL (0.70-1.30); SODIUM 136 mmol/L (136-145); TOTAL PROTEIN 6.2 g/dL (6.4-8.2); eGFR NON BLACK RACES 42 (>60)
[2021-10-04 06:24] LABS: TOTAL PSA 0.81 ng/mL (0.13-4.0)
[2021-10-04] MEDS ORDERED: HEPARIN SODIUM INJ 5000 UNITS IVP ONE ×2 (06:28→13:15)
[2021-10-04] MEDS: MORPHINE SULFATE INJ 4 MG IVP PRN ×2 (07:01→11:04)
--- NOTE | 2021-10-04 07:06 | RAD ---
HISTORYELEVATED BNPSTUDYCHEST, 1 [id number]/07/2022.TECHNIQUEAP view of the chestFINDINGSStatus post median sternotomy and CABG. Cardiac and mediastinal contours are within normal limits. There is mild thickening of the right minor fissure and blunting of the right costophrenic sulcus. Similar appearing mild bilateral interstitial opacities. No pneumothorax.IMPRESSIONMild pulmonary edema pattern and suspected small right pleural effusion. Similar appearance to prior.Electronically signed by: Benjamín Rubio (Oct 04, 2021 07:05:12)
--- NOTE | 2021-10-04 08:27 | RAD ---
HISTORYMODERATE TO SEVERE LOW BACK PAIN HTN, COPD, CABG/VAVLE, ORTHOSTUDYLUMBAR SPINE, AP/LATCOMPARISONNone availableFINDINGSThere are 5 [id number] lumbar type vertebral bodies. There is heavy calcification of the abdominal aorta. There is no evidence of acute fractures of the lumbar vertebral bodies. There is mild anterior wedging of T12, that appears to be old. There is no anterolisthesis or retrolisthesis. There is loss of disc height at L5-S1 with endplate sclerosis.IMPRESSIONMild anterior wedging of T12 vertebral body likely old. No acute fractures of the lumbar vertebral bodies. Severe degenerative disc disease at L5-S1.Electronically signed by: Hellen Huerta (Oct 04, 2021 08:26:26)
[2021-10-04] MEDS: PULMICORT NEB TX 0.5 MG NEB SCH ×2 (08:30→20:39)
[2021-10-04 08:41] LABS: CKMB % 3.3 % (<4); CREATINE KINASE MB 1.2 ng/mL (0-4.0)
[2021-10-04] MEDS ORDERED: FLEET ENEMA ADULT PR ONE (08:44)
[2021-10-04] MEDS ORDERED: ZESTRIL TAB 20 MG PO SCH (09:00)
[2021-10-04] MEDS ORDERED: COREG TAB 6.25 MG PO SCH (09:00)
[2021-10-04] MEDS: COREG TAB 6.25 MG PO SCH ×2 (09:49→21:33)
[2021-10-04] MEDS: ASPIRIN EC 81 MG PO SCH (09:49)
[2021-10-04] MEDS: FLOMAX PO SCH (09:50)
[2021-10-04] MEDS: ENTRESTO 24/26 MG TAB PO SCH ×2 (09:50→21:33)
[2021-10-04] MEDS: LASIX IVP SCH ×2 (09:51→16:39)
[2021-10-04] MEDS: PLAVIX PO SCH (09:51)
--- NOTE | 2021-10-04 09:54 | CT ---
HISTORYPAIN TO LOWER BACKSTUDYLUMBAR SPINE W/O CONCOMPARISONPlain film dated 10/04/2021TECHNIQUEAxial images through the lumbar spine were performed without contrast. CT scan was performed following ALARA (As low as Reasonably Achievable).Coronal and Sagittal reformatted images were performed.FINDINGSThere is a small right pleural effusion and trace in the left.There are scattered sclerotic bone lesions with the largest seen at L2 vertebral body, there is no evidence of acute fracturesThere is no evidence of adrenal masses, there is heavy calcification of the abdominal aorta, there is mild dilatation of the left renal pelvis. There is also multiple sclerotic lesions in the pelvic bones.There is no evidence of central spinal canal stenosis. Small disc bulging L4-L5 and L5-S1 and moderate narrowing of the neural foramina at L5-S1 bilaterally.IMPRESSIONDiffuse sclerotic bone metastasis with the largest at L2 vertebral body. No acute compression fractures. BRoad-based disc bulging L4-L5 and L5-S1 with bilateral moderate neural foraminal stenosis at L5-S1.Mild left-sided hydronephrosis.Small right pleural effusionElectronically signed by: Hellen Huerta (Oct 04, 2021 09:52:29)
[2021-10-04] MEDS: COLACE CAP 100 MG PO PRN (11:04)
[2021-10-04] MEDS: MILK OF MAGNESIA PO PRN (11:04)
[2021-10-04] MEDS: DILAUDID INJ IVP PRN ×3 (14:27→20:17)
[2021-10-04] MEDS: ZOFRAN INJ 4 MG VIAL IVP PRN ×2 (15:00→19:45)
--- NOTE | 2021-10-04 20:32 | DR.H&P ---
H&P History & Physical for Day of: H&P Date: 10/03/21 Chief Complaint Chief Complaint: Shortness of breath/dyspnea Allergies Allergies Allergy/AdvReac Type Severity Reaction Status Date / Time Penicillins Allergy Verified 07/20/20 19:17 History of Present Illness History of Present Illness: This is a 71-year-old white male well-known to me. He reports a 2-week history of worsening shortness of breath and difficulty breathing. This morning he got worse to the point where he could not catch his breath he reported. So he came into the emergency department here [facility] emergency room and they started a work-up on him. They found that he was in congestive heart failure had been at greater than 2000. He does report stopping his Entresto for 1 day as he thought this medicine may be worsening his breathing. He also reports severe low back pain on the right lumbar side. He has been battling this for a year to year and a half now. The pain is gotten so severe recently he is having trouble getting up out of the bed these days. It is noted that his alkaline phosphatase is elevated almost 500 coming in the hospital. Given the patient's abnormal labs and his difficulty breathing and slightly elevated troponin we elected to go ahead and put him in the hospital here and check serial cardiac enzymes and EKGs. And also diuresing with IV Lasix. Past Medical History Past Medical History: Anxiety, COPD, Coronary Artery Disease, Dyslipidemia and Hypertension Past Surgical History Surgical History: CABG/Valve Surgery and Ortho Surgery Additional Surgical History: Angioplasty on legs, Left AKA Family History Family Medical History: Cancer and DC Social History Does patient currently use any type of tobacco product: Yes Have you used tobacco products in the last 12 months: Yes Type of Tobacco Use: None Does any household member use tobacco: No Alcohol Use: Rarely Drug Use: None Medications Home Medications: Penicillins Allergy (Verified 07/20/20 19:17) CONTINUE taking the following medications carvedilol 6.25 mg tablet (Coreg) 6.25 mg PO BID 10/03/21 [History] ketorolac 10 mg tablet 10 mg PO Q6H PRN 10/03/21 [History] ondansetron 8 mg disintegrating tablet 8 mg PO Q8H PRN Nausea 10/03/21 [History] sacubitril 97 mg-valsartan 103 mg tablet (Entresto) 1 tab PO BID 10/03/21 [History] tamsulosin 0.4 mg capsule 0.4 mg PO DAILY 10/03/21 [History] Labs Result Diagrams: 10/04/21 05:30 10/04/21 05:30 Labs: Laboratory WBC 5.8 X10^3/uL (3.6-10.0) 10/04/21 05:30 RBC 4.43 X10^6/uL (4.7-6.0) L 10/04/21 05:30 Hgb 13.3 g/dL (13.5-18.0) L 10/04/21 05:30 Hct 39.6 % (42.0-54.0) L 10/04/21 05:30 MCV 89.4 fL (80.0-100.0) 10/04/21 05:30 MCH 29.9 pg (27.0-34.0) 10/04/21 05:30 MCHC 33.5 g/dL (33.0-35.0) 10/04/21 05:30 RDW 14.1 % (11.6-16.5) 10/04/21 05:30 Plt Count 208 X10^3/uL (150.0-450.0) 10/04/21 05:30 MPV 10.8 fL (7.4-11.0) 10/04/21 05:30 Neut % (Auto) 68.1 % (42.0-75.0) 10/04/21 05:30 Lymph % (Auto) 15.9 % (21.0-51.0) L 10/04/21 05:30 [place] % (Auto) 10.6 % (0.0-13.0) 10/04/21 05:30 Eos % (Auto) 2.5 % (0.9-2.9) 10/04/21 05:30 Baso % (Auto) 2.9 % (0.2-1.0) H 10/04/21 05:30 Neut # (Auto) 4.0 x10^3/uL (2.2-4.8) 10/04/21 05:30 Lymph # (Auto) 0.9 X10^3/uL (1.3-2.9) L 10/04/21 05:30 [place] # (Auto) 0.6 x10^3/uL (0.3-0.8) 10/04/21 05:30 Eos # (Auto) 0.1 x10^3/uL (0.0-0.2) 10/04/21 05:30 Baso # (Auto) 0.2 X10^3/uL (0.0-0.1) H 10/04/21 05:30 Absolute Nucleated RBC 0.1 /100WBC 10/04/21 05:30 PT 15.0 SECONDS (11.8-14.3) 10/03/21 22:18 INR Target Range - 10/03/21 22:18 INR 1.22 (0.8-1.3) 10/03/21 22:18 APTT 74.8 SECONDS (22.9-36.5) H 10/04/21 19:20 PTT Comment - 10/04/21 19:20 Sodium 136 mmol/L (136-145) 10/04/21 05:30 Corrected Sodium TNP 10/04/21 05:30 Potassium 4.1 mmol/L (3.5-5.1) 10/04/21 05:30 Chloride 99 mmol/L (98-107) 10/04/21 05:30 Carbon Dioxide 27.8 mmol/L (21-32) 10/04/21 05:30 BUN 21 mg/dL (7-18) H 10/04/21 05:30 Creatinine 1.71 mg/dL (0.70-1.30) H 10/04/21 05:30 Est GFR (MDRD) Af Amer 51 (>60) L 10/04/21 05:30 Est GFR (MDRD) Non-Af 42 (>60) L 10/04/21 05:30 Glucose 87 mg/dL (65-99) 10/04/21 05:30 Calcium 8.1 mg/dL (8.5-10.1) L 10/04/21 05:30 Corrected Calcium 9.0 mg/dL (8.5-10.1) 10/04/21 05:30 Total Bilirubin 0.50 mg/dL (0.2-1.0) 10/04/21 05:30 AST 13 Units/L (15-37) L 10/04/21 05:30 ALT 17 Units/L (12-78) 10/04/21 05:30 Alkaline Phosphatase 460 Units/L (46-116) H 10/04/21 05:30 Creatine Kinase 36 Units/L (39-308) L 10/04/21 08:05 CK-MB (CK-2) 1.2 ng/mL (0-4.0) 10/04/21 08:05 CK/CKMB % Calc 3.3 % (<4) 10/04/21 08:05 Troponin I High Sens 82.2 ng/L (4.0-60.0) H* 10/04/21 08:05 B-Natriuretic Peptide 1590 pg/mL (0-79) H* 10/04/21 05:30 Total Protein 6.2 g/dL (6.4-8.2) L 10/04/21 05:30 Albumin 2.9 g/dL (3.4-5.0) L 10/04/21 05:30 Globulin 3.3 g/dL (2.5-4.5) 10/04/21 05:30 Albumin/Globulin Ratio 0.9 Ratio (1.1-2.1) L 10/04/21 05:30 Total PSA 0.81 ng/mL (0.13-4.0) 10/04/21 05:30 Specimen Type Clean catch urine 10/03/21 09:54 Urine Color Yellow (YELLOW) 10/03/21 09:54 Urine Appearance Clear (CLEAR) 10/03/21 09:54 Urine pH 6.0 (5.0 - 8.0) 10/03/21 09:54 Ur Specific [place] 1.010 (1.000-1.030) 10/03/21 09:54 Urine Protein 1+ (NEGATIVE) 10/03/21 09:54 Urine Glucose (UA) Negative (NEGATIVE) 10/03/21 09:54 Urine Ketones 1+ (NEGATIVE) 10/03/21 09:54 Urine Blood 1+ (NEGATIVE) 10/03/21 09:54 Urine Nitrite Negative (NEGATIVE) 10/03/21 09:54 Urine Bilirubin Negative (NEGATIVE) 10/03/21 09:54 Urine Urobilinogen Normal (NORMAL) 10/03/21 09:54 Ur Leukocyte Esterase Negative (NEGATIVE) 10/03/21 09:54 Urine RBC 0-2 /HPF (0-3) 10/03/21 09:54 Urine WBC 0-2 /HPF (0-5) 10/03/21 09:54 Ur Squamous Epith Cells Rare /HPF (NEGATIVE) 10/03/21 09:54 Urine Bacteria Negative /HPF (NEGATIVE) 10/03/21 09:54 Ur Culture Indicated? No/not indicated 10/03/21 09:54 SARS-CoV-2 (PCR) Negative (NEGATIVE) 10/03/21 08:37 Influenza Type A (PCR) Negative (NEGATIVE) 10/03/21 08:37 Influenza Type B (PCR) Negative (NEGATIVE) 10/03/21 08:37 RSV (PCR) Negative (NEGATIVE) 10/03/21 08:37 Review of Systems Constitutional: Weakness and Malaise Eyes: No Symptoms Reported ENT: No Symptoms Reported Respiratory: Cough and Shortness of Breath Cardiovascular: Chest Pain and Orthopnea Gastrointestinal: No Symptoms Reported Genitourinary: Retention and Other (Difficulty in starting urination.) Musculoskeletal: Back Pain Skin: No Symptoms Reported Neurological: Weakness (Right leg weakness) Physical Exam Vital Signs: Temperature 98.5 F Pulse Rate [Left Brachial] 92 Pulse Rate 99 Respiratory Rate 22 Blood Pressure [Right Arm] 92/60 Blood Pressure [Left Arm] 130/57 Blood Pressure 141/76 O2 Sat by Pulse Oximetry 92 Oriented: Normal, Time, Person and Place Eyes: Normal Ear: Normal Nose: Normal Throat: Normal Respiratory: Diminished Throughout and Rales Throughout Cardiovascular: Normal : Normal Auscultation: Bowel Sounds: Normal Palpation: Normal Tenderness: Normal Skin: Normal Musculoskeletal: Back:Lumbar Psychiatric: Normal Mood Description: Appropriate Affect: Normal Speech Pattern: Clear and Appropriate Assessment/Plan (1) Myocardial infarct: Qualifiers: Myocardial infarction type: non-ST elevation myocardial infarction Qualified Code(s): I21.4 - Non-ST elevation (NSTEMI) myocardial infarction Status: Acute Plan: Supplemental O2, as needed morphine, aspirin and heparin drip per protocol. (2) Chest pain: Qualifiers: Chest pain type: precordial pain Qualified Code(s): R07.2 - Precordial pain Status: Acute Plan: Follow troponins with serial cardiac enzymes and EKGs (3) Congestive heart failure (CHF): Status: Acute Plan: Daily BMPs and Lasix IV every 12 hours (4) Lumbar back pain: Status: Acute Plan: Check lumbar spine/check CT lumbar spine (5) Elevated alkaline phosphatase level: Status: Acute Plan: Check isoenzyme levels for alkaline phosphatase/check L-spine/check CT L-spine (6) CAD (coronary artery disease): Status: Chronic (7) Hypertension: Status: Chronic Plan: Continue the patient's Coreg (8) Hyperlipidemia: Status: Chronic Plan: Continue patient's statin he takes. (9) Hx of CABG: Status: Chronic
--- NOTE | 2021-10-04 20:37 | PCM.PROG ---
Progress Note Progress Note for Day of Date of Exam: 10/04/21 Subjective Subjective: The patient reports his breathing is better today. We will continue to diurese him with IV Lasix. His BNP has come down to around 1500 today. L- spine shows some old compression fractures in the lumbar spine however the CT of the lumbar spine showed what looked like to be metastatic lesions in the vertebral vertebra. I am also concerned for may have 1 in the right pelvic bone is where his worst pain is. I discussed this with him and his family. They are aware of the findings at this time. His troponins have started trending back down and he denies current chest pain at this time. I discussed also ordering a CT chest with IV contrast and CT abdomen pelvis with IV and p.o. contrast later today to see if we can find a possible origin of what appears to be metastatic disease to his bones. Given his elevated alkaline phosphatase levels this is highly suggestive of metastatic cancer. Past Medical Family Social History Allergies: Allergies Penicillins Allergy (Verified 07/20/20 19:17) Review of Systems ROS: No change since H&P Vital Signs and I&O's Vital Signs: Temperature 98.5 F Pulse Rate [Left Brachial] 92 Pulse Rate 99 Respiratory Rate 22 Blood Pressure [Right Arm] 92/60 Blood Pressure [Left Arm] 130/57 Blood Pressure 141/76 O2 Sat by Pulse Oximetry 92 Intake and Output: Intake & Output 10/02/21 10/03/21 10/04/21 10/05/21 11:59 11:59 11:59 11:59 Intake Total 1226.5 / 1226.5 751.5 / 751.5 Output Total 2170 / 2170 600 / 600 Balance -943.5 / -943.5 151.5 / 151.5 Physical Exam Oriented: Normal, Time, Person and Place Eyes: Normal Ear: Normal Nose: Normal Throat: Normal Respiratory: Diminished and Rales Cardiovascular: Normal : Normal Auscultation: Bowel Sounds: Normal Palpation: Normal Tenderness: Normal Skin: Normal Musculoskeletal: Back:Lumbar Psychiatric: Normal Mood Description: Appropriate Affect: Normal Speech Pattern: Clear and Appropriate Laboratory and Diagnostics Result Diagrams: 10/04/21 05:30 10/04/21 05:30 Labs: Laboratory WBC 5.8 X10^3/uL (3.6-10.0) 10/04/21 05:30 RBC 4.43 X10^6/uL (4.7-6.0) L 10/04/21 05:30 Hgb 13.3 g/dL (13.5-18.0) L 10/04/21 05:30 Hct 39.6 % (42.0-54.0) L 10/04/21 05:30 MCV 89.4 fL (80.0-100.0) 10/04/21 05:30 MCH 29.9 pg (27.0-34.0) 10/04/21 05:30 MCHC 33.5 g/dL (33.0-35.0) 10/04/21 05:30 RDW 14.1 % (11.6-16.5) 10/04/21 05:30 Plt Count 208 X10^3/uL (150.0-450.0) 10/04/21 05:30 MPV 10.8 fL (7.4-11.0) 10/04/21 05:30 Neut % (Auto) 68.1 % (42.0-75.0) 10/04/21 05:30 Lymph % (Auto) 15.9 % (21.0-51.0) L 10/04/21 05:30 [place] % (Auto) 10.6 % (0.0-13.0) 10/04/21 05:30 Eos % (Auto) 2.5 % (0.9-2.9) 10/04/21 05:30 Baso % (Auto) 2.9 % (0.2-1.0) H 10/04/21 05:30 Neut # (Auto) 4.0 x10^3/uL (2.2-4.8) 10/04/21 05:30 Lymph # (Auto) 0.9 X10^3/uL (1.3-2.9) L 10/04/21 05:30 [place] # (Auto) 0.6 x10^3/uL (0.3-0.8) 10/04/21 05:30 Eos # (Auto) 0.1 x10^3/uL (0.0-0.2) 10/04/21 05:30 Baso # (Auto) 0.2 X10^3/uL (0.0-0.1) H 10/04/21 05:30 Absolute Nucleated RBC 0.1 /100WBC 10/04/21 05:30 PT 15.0 SECONDS (11.8-14.3) 10/03/21 22:18 INR Target Range - 10/03/21 22:18 INR 1.22 (0.8-1.3) 10/03/21 22:18 APTT 74.8 SECONDS (22.9-36.5) H 10/04/21 19:20 PTT Comment - 10/04/21 19:20 Sodium 136 mmol/L (136-145) 10/04/21 05:30 Corrected Sodium TNP 10/04/21 05:30 Potassium 4.1 mmol/L (3.5-5.1) 10/04/21 05:30 Chloride 99 mmol/L (98-107) 10/04/21 05:30 Carbon Dioxide 27.8 mmol/L (21-32) 10/04/21 05:30 BUN 21 mg/dL (7-18) H 10/04/21 05:30 Creatinine 1.71 mg/dL (0.70-1.30) H 10/04/21 05:30 Est GFR (MDRD) Af Amer 51 (>60) L 10/04/21 05:30 Est GFR (MDRD) Non-Af 42 (>60) L 10/04/21 05:30 Glucose 87 mg/dL (65-99) 10/04/21 05:30 Calcium 8.1 mg/dL (8.5-10.1) L 10/04/21 05:30 Corrected Calcium 9.0 mg/dL (8.5-10.1) 10/04/21 05:30 Total Bilirubin 0.50 mg/dL (0.2-1.0) 10/04/21 05:30 AST 13 Units/L (15-37) L 10/04/21 05:30 ALT 17 Units/L (12-78) 10/04/21 05:30 Alkaline Phosphatase 460 Units/L (46-116) H 10/04/21 05:30 Creatine Kinase 36 Units/L (39-308) L 10/04/21 08:05 CK-MB (CK-2) 1.2 ng/mL (0-4.0) 10/04/21 08:05 CK/CKMB % Calc 3.3 % (<4) 10/04/21 08:05 Troponin I High Sens 82.2 ng/L (4.0-60.0) H* 10/04/21 08:05 B-Natriuretic Peptide 1590 pg/mL (0-79) H* 10/04/21 05:30 Total Protein 6.2 g/dL (6.4-8.2) L 10/04/21 05:30 Albumin 2.9 g/dL (3.4-5.0) L 10/04/21 05:30 Globulin 3.3 g/dL (2.5-4.5) 10/04/21 05:30 Albumin/Globulin Ratio 0.9 Ratio (1.1-2.1) L 10/04/21 05:30 Total PSA 0.81 ng/mL (0.13-4.0) 10/04/21 05:30 Specimen Type Clean catch urine 10/03/21 09:54 Urine Color Yellow (YELLOW) 10/03/21 09:54 Urine Appearance Clear (CLEAR) 10/03/21 09:54 Urine pH 6.0 (5.0 - 8.0) 10/03/21 09:54 Ur Specific [place] 1.010 (1.000-1.030) 10/03/21 09:54 Urine Protein 1+ (NEGATIVE) 10/03/21 09:54 Urine Glucose (UA) Negative (NEGATIVE) 10/03/21 09:54 Urine Ketones 1+ (NEGATIVE) 10/03/21 09:54 Urine Blood 1+ (NEGATIVE) 10/03/21 09:54 Urine Nitrite Negative (NEGATIVE) 10/03/21 09:54 Urine Bilirubin Negative (NEGATIVE) 10/03/21 09:54 Urine Urobilinogen Normal (NORMAL) 10/03/21 09:54 Ur Leukocyte Esterase Negative (NEGATIVE) 10/03/21 09:54 Urine RBC 0-2 /HPF (0-3) 10/03/21 09:54 Urine WBC 0-2 /HPF (0-5) 10/03/21 09:54 Ur Squamous Epith Cells Rare /HPF (NEGATIVE) 10/03/21 09:54 Urine Bacteria Negative /HPF (NEGATIVE) 10/03/21 09:54 Ur Culture Indicated? No/not indicated 10/03/21 09:54 SARS-CoV-2 (PCR) Negative (NEGATIVE) 10/03/21 08:37 Influenza Type A (PCR) Negative (NEGATIVE) 10/03/21 08:37 Influenza Type B (PCR) Negative (NEGATIVE) 10/03/21 08:37 RSV (PCR) Negative (NEGATIVE) 10/03/21 08:37 Radiology Reviewed: Yes EKG Reviewed: Yes Plan (1) Myocardial infarct: Status: Acute Qualifiers: Myocardial infarction type: non-ST elevation myocardial infarction Qualified Code(s): I21.4 - Non-ST elevation (NSTEMI) myocardial infarction Plan: Supplemental O2, as needed morphine, aspirin and heparin drip per protocol. (2) Chest pain: Status: Acute Qualifiers: Chest pain type: precordial pain Qualified Code(s): R07.2 - Precordial pain Plan: Follow troponins with serial cardiac enzymes and EKGs (3) Congestive heart failure (CHF): Status: Acute Plan: Daily BMPs and Lasix IV every 12 hours (4) Lumbar back pain: Status: Acute Plan: Check lumbar spine/check CT lumbar spine (5) Elevated alkaline phosphatase level: Status: Acute Plan: Check isoenzyme levels for alkaline phosphatase/check L-spine/check CT L-spine (6) CAD (coronary artery disease): Status: Chronic (7) Hypertension: Status: Chronic Plan: Continue the patient's Coreg (8) Hyperlipidemia: Status: Chronic Plan: Continue patient's statin he takes. (9) Hx of CABG: Status: Chronic (10) Bone metastasis: Status: Acute Narrative Support Text: Patient reported to me this afternoon that he if he does have cancer he does not want anything done he wants to be sent home. He does wish for pain control but I discussed with him about ordering some further test to see if we can find the origin site and make a better informed decision after that. He is in agreement with this. Plan: Follow-up alkaline phosphatase isoenzymes level when available next follow-up with CT of the lungs and abdomen and pelvis with contrast when results are available.
--- NOTE | 2021-10-04 20:54 | CT ---
HISTORYSpinal LesionsSTUDYCHEST WITH CONCOMPARISONTECHNIQUEMultiple axial images of the chest were obtained from the thoracic inlet to the upper abdomen after the administration of IV contrast. Dose reduction techniques including Automated Exposure Control (AEC) and adjustment of mA and kV were utilized.FINDINGSThe heart size is enlarged including both ventricles. There is heavy atherosclerosis in the aorta but no aneurysm. There is dilation of the main pulmonary artery suggesting chronic pulmonary artery hypertension but there is no filling defect to suggest a pulmonary embolus. There is no pathologic adenopathy. There are reactive sized mediastinal lymph nodes. The airways are clear. There is some bronchial wall thickening. There is right lower lobe opacity suggestive of atelectasis given the volume loss from the small to moderate effusion. There is mild left base atelectasis. There are some small low-density thyroid lesions. Upper abdominal images show abnormal hypoenhancement of the left kidney coupled with left hydronephrosis suggesting ureteral obstruction. There are multiple blastic metastatic skeletal lesions.IMPRESSION1. Negative for pulmonary embolus. 2. Nonspecific mediastinal lymph nodes. 3. Small to moderate right pleural effusion. 4. Bronchial wall thickening in the right lung. 5. Left-sided hydronephrosis presumably due to a ureteral obstruction.Electronically signed by: Enoc Jackson (Oct 04, 2021 20:52:41)
--- NOTE | 2021-10-04 21:03 | CT ---
HISTORYSpinal LesionsSTUDYABDOMEN/PELVIS WITH CONCOMPARISONTECHNIQUEMultiple axial images of the abdomen and pelvis were obtained from the lung bases to the pubic symphysis after the administration of IV contrast. Dose reduction techniques including Automated Exposure Control (AEC) and adjustment of mA and kV were utilized.FINDINGSThere is diffuse fatty infiltration of the liver. No liver metastasis is identified. The gallbladder is normal. Pancreas is normal. Spleen and adrenal glands are normal. Right kidney enhances normally without stone or hydronephrosis. There is abnormal hypoenhancement in the left kidney with left-sided hydronephrosis as well as perinephric edema. No ureteral stone is identified. The distal ureter is definitely collapsed. The obstruction may be due to a soft tissue mass in the mid left ureter. The differential diagnosis would include left-sided pyelonephritis; correlate clinically. There is severe systemic atherosclerosis. The stomach is grossly normal. The small bowel loops are normal. The appendix is not visualized but there is no evidence for appendicitis. There is diverticulosis of the distal colon but no convincing diverticulitis urinary bladder is normal. Prostate measures 4 centimeter in diameter. Diffuse blastic bone lesions are present.IMPRESSION1. Diffuse fatty infiltration of the liver. 2. Abnormal left hydronephrosis and abnormal hypoenhancement of the left kidney. Differential includes a soft tissue mass obstructing the mid left ureter and left-sided pyelonephritis. 3. Severe systemic atherosclerosis. 4. Diverticulosis without diverticulitis. 5. Diffuse blastic metastatic bone disease.Electronically signed by: Enoc Jackson (Oct 04, 2021 21:01:50)
[2021-10-04] MEDS: LIPITOR TAB 80 MG PO SCH (21:33)
[2021-10-05] MEDS: DUONEB 0.5 MG/3 MG (3 mL) NEB SCH ×6 (00:03→21:58)
[2021-10-05] MEDS: COLACE CAP 100 MG PO PRN ×3 (01:30→21:01)
[2021-10-05] MEDS: ZOFRAN INJ 4 MG VIAL IVP PRN ×5 (01:30→23:35)
[2021-10-05 01:59] LABS: BASOPHILS # (AUTO) 0.1 X10^3/uL (0.0-0.1); BASOPHILS % (AUTO) 1.7 % (0.2-1.0); EOSINOPHILS # (AUTO) 0.1 x10^3/uL (0.0-0.2); EOSINOPHILS % (AUTO) 1.4 % (0.9-2.9); HEMATOCRIT 39.4 % (42.0-54.0); HEMOGLOBIN 13.2 g/dL (13.5-18.0); LYMPHOCYTES # (AUTO) 0.9 X10^3/uL (1.3-2.9); LYMPHOCYTES % (AUTO) 14.5 % (21.0-51.0); MEAN CORPUSCULAR HEMOGLOBIN 29.7 pg (27.0-34.0); MEAN CORPUSCULAR HGB CONC 33.6 g/dL (33.0-35.0); MEAN CORPUSCULAR VOLUME 88.6 fL (80.0-100.0); MEAN PLATELET VOLUME 10.9 fL (7.4-11.0); MONOCYTES # (AUTO) 0.9 x10^3/uL (0.3-0.8); MONOCYTES % (AUTO) 14.7 % (0.0-13.0); NEUTROPHILS # (AUTO) 4.1 x10^3/uL (2.2-4.8); NEUTROPHILS % (AUTO) 67.7 % (42.0-75.0); RED BLOOD COUNT 4.45 X10^6/uL (4.7-6.0); RED CELL DISTRIBUTION WIDTH 13.8 % (11.6-16.5)
[2021-10-05 02:07] LABS: ALBUMIN 2.8 g/dL (3.4-5.0); CALCIUM 8.1 mg/dL (8.5-10.1); CARBON DIOXIDE 32.1 mmol/L (21-32); COR CA(FOR HYPOALB) 9.1 mg/dL (8.5-10.1); CREATININE 1.87 mg/dL (0.70-1.30); TOTAL PROTEIN 6.1 g/dL (6.4-8.2)
[2021-10-05] MEDS: DILAUDID INJ IVP PRN ×4 (02:15→14:37)
[2021-10-05] MEDS: FLOMAX PO SCH (08:00)
[2021-10-05] MEDS: ASPIRIN EC 81 MG PO SCH (08:00)
[2021-10-05] MEDS: ENTRESTO 24/26 MG TAB PO SCH ×2 (08:00→21:00)
[2021-10-05] MEDS: COREG TAB 6.25 MG PO SCH ×2 (08:00→21:00)
[2021-10-05] MEDS: PLAVIX PO SCH (08:01)
[2021-10-05] MEDS: LASIX IVP SCH ×2 (08:01→17:03)
[2021-10-05] MEDS: PULMICORT NEB TX 0.5 MG NEB SCH ×2 (09:00→21:58)
--- NOTE | 2021-10-05 11:09 | PCM.PROG ---
Progress Note Progress Note for Day of Date of Exam: 10/05/21 Subjective Subjective: Pt is a 71 year old male admitted for NSTEMI, CHF exacerbation, and was found to have bone metastasis on imaging. This morning patient reports feeling better including his breathing. He is receiving IV Lasix 40mg BID for diuresis. Pt had imaging yesterday due to CT of the lumbar spine showing what looked like to be metastatic lesions in the vertebral vertebra. CT chest and CTAP was obtained that revealed: 1.Negative for pulmonary embolus. 2.Nonspecific mediastinal lymph nodes. 3. Small to moderate right pleural effusion. 4. Bronchial wall thickening in the right lung. 5. Left-sided hydronephrosis presumably due to a ureteral obstruction. 1.Diffuse fatty infiltration of the liver. 2. Abnormal left hydronephrosis and abnormal hypoenhancement of the left kidney. Differential includes a soft tissue mass obstructing the mid left ureter and left-sided pyelonephritis. 3. Severe systemic atherosclerosis. 4.Diverticulosis without diverticulitis. 5. Diffuse blastic metastatic bone disease. Labs: Wbc 6, Hgb 13.2, Plt 217, Na 132, K 4.1, Creatinine 1.87, Glucose 116. Discussed findings with patient. Chest pain and shortness of breath have resolved. Heparin gtt has been discontinued. Will continue to closely monitor and follow up labs/imaging. Time spent on clinical assessment, reviewing labs and imaging, decision making, and documentation greater than 45 minutes. Past Medical Family Social History Allergies: Allergies Penicillins Allergy (Verified 07/20/20 19:17) Review of Systems ROS: No change since H&P Vital Signs and I&O's Vital Signs: Temperature 98.7 F Pulse Rate [Left Brachial] 92 Pulse Rate 83 Respiratory Rate 27 Blood Pressure [Right Arm] 92/60 Blood Pressure [Left Arm] 130/57 Blood Pressure 134/73 O2 Sat by Pulse Oximetry 92 Intake and Output: Intake & Output 10/02/21 10/03/21 10/04/21 10/05/21 23:59 23:59 23:59 23:59 Intake Total 1000 / 1000 1683.0 / 1683.0 344 / 344 Output Total 1500 / 1500 1270 / 1270 Balance -500 / -500 413.0 / 413.0 344 / 344 Physical Exam Oriented: Normal, Time, Person and Place Eyes: Normal Ear: Normal Nose: Normal Throat: Normal Respiratory: Diminished and Rales Cardiovascular: Normal : Normal Auscultation: Bowel Sounds: Normal Tenderness: Normal Skin: Normal Musculoskeletal: Back:Lumbar Psychiatric: Normal Mood Description: Appropriate Affect: Normal Speech Pattern: Clear and Appropriate Laboratory and Diagnostics Result Diagrams: 10/05/21 01:40 10/05/21 01:40 Labs: Laboratory WBC 6.0 X10^3/uL (3.6-10.0) 10/05/21 01:40 RBC 4.45 X10^6/uL (4.7-6.0) L 10/05/21 01:40 Hgb 13.2 g/dL (13.5-18.0) L 10/05/21 01:40 Hct 39.4 % (42.0-54.0) L 10/05/21 01:40 MCV 88.6 fL (80.0-100.0) 10/05/21 01:40 MCH 29.7 pg (27.0-34.0) 10/05/21 01:40 MCHC 33.6 g/dL (33.0-35.0) 10/05/21 01:40 RDW 13.8 % (11.6-16.5) 10/05/21 01:40 Plt Count 217 X10^3/uL (150.0-450.0) 10/05/21 01:40 MPV 10.9 fL (7.4-11.0) 10/05/21 01:40 Neut % (Auto) 67.7 % (42.0-75.0) 10/05/21 01:40 Lymph % (Auto) 14.5 % (21.0-51.0) L 10/05/21 01:40 [place] % (Auto) 14.7 % (0.0-13.0) H 10/05/21 01:40 Eos % (Auto) 1.4 % (0.9-2.9) 10/05/21 01:40 Baso % (Auto) 1.7 % (0.2-1.0) H 10/05/21 01:40 Neut # (Auto) 4.1 x10^3/uL (2.2-4.8) 10/05/21 01:40 Lymph # (Auto) 0.9 X10^3/uL (1.3-2.9) L 10/05/21 01:40 [place] # (Auto) 0.9 x10^3/uL (0.3-0.8) H 10/05/21 01:40 Eos # (Auto) 0.1 x10^3/uL (0.0-0.2) 10/05/21 01:40 Baso # (Auto) 0.1 X10^3/uL (0.0-0.1) 10/05/21 01:40 Absolute Nucleated RBC 0.1 /100WBC 10/05/21 01:40 PT 15.0 SECONDS (11.8-14.3) 10/03/21 22:18 INR Target Range - 10/03/21 22:18 INR 1.22 (0.8-1.3) 10/03/21 22:18 APTT 84.3 SECONDS (22.9-36.5) H 10/05/21 01:40 PTT Comment - 10/05/21 01:40 Sodium 132 mmol/L (136-145) L 10/05/21 01:40 Corrected Sodium 132 mmol/L (136-145) L 10/05/21 01:40 Potassium 4.1 mmol/L (3.5-5.1) 10/05/21 01:40 Chloride 94 mmol/L (98-107) L 10/05/21 01:40 Carbon Dioxide 32.1 mmol/L (21-32) H 10/05/21 01:40 BUN 23 mg/dL (7-18) H 10/05/21 01:40 Creatinine 1.87 mg/dL (0.70-1.30) H 10/05/21 01:40 Est GFR (MDRD) Af Amer 46 (>60) L 10/05/21 01:40 Est GFR (MDRD) Non-Af 38 (>60) L 10/05/21 01:40 Glucose 116 mg/dL (65-99) H 10/05/21 01:40 Calcium 8.1 mg/dL (8.5-10.1) L 10/05/21 01:40 Corrected Calcium 9.1 mg/dL (8.5-10.1) 10/05/21 01:40 Total Bilirubin 0.60 mg/dL (0.2-1.0) 10/05/21 01:40 AST 13 Units/L (15-37) L 10/05/21 01:40 ALT 18 Units/L (12-78) 10/05/21 01:40 Alkaline Phosphatase 473 Units/L (46-116) H 10/05/21 01:40 Creatine Kinase 36 Units/L (39-308) L 10/04/21 08:05 CK-MB (CK-2) 1.2 ng/mL (0-4.0) 10/04/21 08:05 CK/CKMB % Calc 3.3 % (<4) 10/04/21 08:05 Troponin I High Sens 82.2 ng/L (4.0-60.0) H* 10/04/21 08:05 B-Natriuretic Peptide 1590 pg/mL (0-79) H* 10/04/21 05:30 Total Protein 6.1 g/dL (6.4-8.2) L 10/05/21 01:40 Albumin 2.8 g/dL (3.4-5.0) L 10/05/21 01:40 Globulin 3.3 g/dL (2.5-4.5) 10/05/21 01:40 Albumin/Globulin Ratio 0.8 Ratio (1.1-2.1) L 10/05/21 01:40 Total PSA 0.81 ng/mL (0.13-4.0) 10/04/21 05:30 Specimen Type Clean catch urine 10/03/21 09:54 Urine Color Yellow (YELLOW) 10/03/21 09:54 Urine Appearance Clear (CLEAR) 10/03/21 09:54 Urine pH 6.0 (5.0 - 8.0) 10/03/21 09:54 Ur Specific [place] 1.010 (1.000-1.030) 10/03/21 09:54 Urine Protein 1+ (NEGATIVE) 10/03/21 09:54 Urine Glucose (UA) Negative (NEGATIVE) 10/03/21 09:54 Urine Ketones 1+ (NEGATIVE) 10/03/21 09:54 Urine Blood 1+ (NEGATIVE) 10/03/21 09:54 Urine Nitrite Negative (NEGATIVE) 10/03/21 09:54 Urine Bilirubin Negative (NEGATIVE) 10/03/21 09:54 Urine Urobilinogen Normal (NORMAL) 10/03/21 09:54 Ur Leukocyte Esterase Negative (NEGATIVE) 10/03/21 09:54 Urine RBC 0-2 /HPF (0-3) 10/03/21 09:54 Urine WBC 0-2 /HPF (0-5) 10/03/21 09:54 Ur Squamous Epith Cells Rare /HPF (NEGATIVE) 10/03/21 09:54 Urine Bacteria Negative /HPF (NEGATIVE) 10/03/21 09:54 Ur Culture Indicated? No/not indicated 10/03/21 09:54 SARS-CoV-2 (PCR) Negative (NEGATIVE) 10/03/21 08:37 Influenza Type A (PCR) Negative (NEGATIVE) 10/03/21 08:37 Influenza Type B (PCR) Negative (NEGATIVE) 10/03/21 08:37 RSV (PCR) Negative (NEGATIVE) 10/03/21 08:37 Plan (1) Myocardial infarct: Status: Acute Qualifiers: Myocardial infarction type: non-ST elevation myocardial infarction Qualified Code(s): I21.4 - Non-ST elevation (NSTEMI) myocardial infarction Plan: Supplemental O2, as needed morphine, aspirin and heparin drip per protocol. (2) Chest pain: Status: Acute Qualifiers: Chest pain type: precordial pain Qualified Code(s): R07.2 - Precordial pain Plan: Follow troponins with serial cardiac enzymes and EKGs (3) Congestive heart failure (CHF): Status: Acute Plan: Daily BMPs and Lasix IV every 12 hours (4) Lumbar back pain: Status: Acute Plan: Check lumbar spine/check CT lumbar spine (5) Elevated alkaline phosphatase level: Status: Acute Plan: Check isoenzyme levels for alkaline phosphatase/check L-spine/check CT L-spine (6) CAD (coronary artery disease): Status: Chronic (7) Hypertension: Status: Chronic Plan: Continue the patient's Coreg (8) Hyperlipidemia: Status: Chronic Plan: Continue patient's statin he takes. (9) Hx of CABG: Status: Chronic (10) Bone metastasis: Status: Acute Plan: Follow-up alkaline phosphatase isoenzymes level when available next follow-up with CT of the lungs and abdomen and pelvis with contrast when results are available.
[2021-10-05] MEDS: MILK OF MAGNESIA PO PRN ×2 (14:38→21:05)
[2021-10-05] MEDS ORDERED: PHENERGAN INJ 25 MG IM PRN (16:00)
[2021-10-05] MEDS ORDERED: CITROMA PO ONE (16:08)
[2021-10-05] MEDS: MORPHINE SULFATE INJ 10 MG IVP PRN (17:03)
[2021-10-05] MEDS: LIPITOR TAB 80 MG PO SCH (21:01)
[2021-10-05] MEDS: HEPARIN SODIUM IN D5W 25,000 UNITS/500 ML BAG IV PRN (21:03)
[2021-10-06] MEDS: MORPHINE SULFATE INJ 10 MG IVP PRN ×3 (00:05→11:10)
[2021-10-06] MEDS: DUONEB 0.5 MG/3 MG (3 mL) NEB SCH ×6 (00:56→21:00)
[2021-10-06 05:09] LABS: BASOPHILS # (AUTO) 0.1 X10^3/uL (0.0-0.1); BASOPHILS % (AUTO) 1.4 % (0.2-1.0); EOSINOPHILS # (AUTO) 0.1 x10^3/uL (0.0-0.2); EOSINOPHILS % (AUTO) 1.4 % (0.9-2.9); HEMATOCRIT 39.1 % (42.0-54.0); LYMPHOCYTES # (AUTO) 0.9 X10^3/uL (1.3-2.9); LYMPHOCYTES % (AUTO) 14.3 % (21.0-51.0); MEAN CORPUSCULAR HEMOGLOBIN 29.3 pg (27.0-34.0); MEAN CORPUSCULAR HGB CONC 33.3 g/dL (33.0-35.0); MEAN PLATELET VOLUME 11.1 fL (7.4-11.0); MONOCYTES % (AUTO) 16.5 % (0.0-13.0); NEUTROPHILS # (AUTO) 4.2 x10^3/uL (2.2-4.8); NEUTROPHILS % (AUTO) 66.4 % (42.0-75.0); RED BLOOD COUNT 4.44 X10^6/uL (4.7-6.0); RED CELL DISTRIBUTION WIDTH 13.9 % (11.6-16.5); WHITE BLOOD COUNT 6.3 X10^3/uL (3.6-10.0)
[2021-10-06 05:21] LABS: ALBUMIN 2.8 g/dL (3.4-5.0); CALCIUM 8.2 mg/dL (8.5-10.1); CARBON DIOXIDE 33.2 mmol/L (21-32); COR CA(FOR HYPOALB) 9.2 mg/dL (8.5-10.1); CREATININE 3.75 mg/dL (0.70-1.30); TOTAL PROTEIN 6.2 g/dL (6.4-8.2)
--- NOTE | 2021-10-06 06:44 | RAD ---
PROCEDURE: Chest X-ray 1 View .HISTORY: Congestive heart failure follow-up.TECHNIQUE: AP view .COMPARISON: 10/04/2021.TECHNICAL QUALITY: Satisfactory .FINDINGS:Normal size heart with previous sternotomy.Mediastinum and hilar regions show no masses or lymphadenopathy .Normal central vascularity .Some atelectasis at the right base more conspicuous than on previous study. No consolidation or pleural fluid.No acute bony abnormality .IMPRESSION:Mild right basilar atelectasis with no other evidence of active disease.Electronically signed by: Russ Mauricio (Oct 06, 2021 06:42:27)
[2021-10-06] MEDS: ENTRESTO 24/26 MG TAB PO SCH ×2 (09:00→21:00)
[2021-10-06] MEDS: LASIX IVP SCH (09:00)
[2021-10-06] MEDS: ASPIRIN EC 81 MG PO SCH (09:00)
[2021-10-06] MEDS: FLOMAX PO SCH (09:00)
[2021-10-06] MEDS: COREG TAB 6.25 MG PO SCH ×3 (09:00→21:01)
[2021-10-06] MEDS: PLAVIX PO SCH (09:00)
[2021-10-06] MEDS: PULMICORT NEB TX 0.5 MG NEB SCH ×2 (09:30→21:00)
--- NOTE | 2021-10-06 09:51 | PCM.PROG ---
Progress Note Progress Note for Day of Date of Exam: 10/06/21 Subjective Subjective: Pt is a 71 year old male admitted for NSTEMI, CHF exacerbation, and was found to have bone metastasis on imaging. This morning patient continues to improve. He is receiving IV Lasix 40mg BID for diuresis. His creatinine is elevated this morning and Chest XR does not show any pleural effusion. Will hold IV lasix and start on gentle hydration to improve renal function. Will also start on oxycodone for pain control. Pt has had CT of the lumbar spine showing what looked like to be metastatic lesions in the vertebral vertebra. CT chest and CTAP was obtained that revealed: 1.Negative for pulmonary embolus. 2.Nonspecific mediastinal lymph nodes. 3. Small to moderate right pleural effusion. 4. Bronchial wall thickening in the right lung. 5. Left-sided hydronephrosis presumably due to a ureteral obstruction. 1.Diffuse fatty infiltration of the liver. 2. Abnormal left hydronephrosis and abnormal hypoenhancement of the left kidney. Differential includes a soft tissue mass obstructing the mid left ureter and left-sided pyelonephritis. 3. Severe systemic atherosclerosis. 4.Diverticulosis without diverticulitis. 5. Diffuse blastic metastatic bone disease. Labs: Wbc 6.3, Hgb 13, Plt 228, Na 135, K 4, Creatinine 3.75, Glucose 128. Chest pain and shortness of breath have resolved. Heparin gtt has been discontinued. Will continue to closely monitor and follow up labs/imaging. Time spent on clinical assessment, reviewing labs and imaging, decision making, and documentation greater than 45 minutes. Past Medical Family Social History Allergies: Allergies Penicillins Allergy (Verified 07/20/20 19:17) Review of Systems ROS: No change since H&P Vital Signs and I&O's Vital Signs: Temperature 99.1 F Pulse Rate [Left Brachial] 92 Pulse Rate 91 Respiratory Rate 33 Blood Pressure [Right Arm] 92/60 Blood Pressure [Left Arm] 130/57 Blood Pressure 104/55 O2 Sat by Pulse Oximetry 93 Intake and Output: Intake & Output 10/03/21 10/04/21 10/05/21 10/06/21 23:59 23:59 23:59 23:59 Intake Total 1000 / 1000 1683.0 / 1683.0 1955 / 195 196 / 196 Output Total 1500 / 1500 1270 / 1270 Balance -500 / -500 413.0 / 413.0 1953 196 / 196 Physical Exam Oriented: Normal, Time, Person and Place Eyes: Normal Ear: Normal Nose: Normal Throat: Normal Respiratory: Diminished and Rales Cardiovascular: Normal : Normal Auscultation: Bowel Sounds: Normal Tenderness: Normal Skin: Normal Musculoskeletal: Back:Lumbar Psychiatric: Normal Mood Description: Appropriate Affect: Normal Speech Pattern: Clear and Appropriate Laboratory and Diagnostics Result Diagrams: 10/06/21 04:45 10/06/21 04:45 Labs: Laboratory WBC 6.3 X10^3/uL (3.6-10.0) 10/06/21 04:45 RBC 4.44 X10^6/uL (4.7-6.0) L 10/06/21 04:45 Hgb 13.0 g/dL (13.5-18.0) L 10/06/21 04:45 Hct 39.1 % (42.0-54.0) L 10/06/21 04:45 MCV 88.0 fL (80.0-100.0) 10/06/21 04:45 MCH 29.3 pg (27.0-34.0) 10/06/21 04:45 MCHC 33.3 g/dL (33.0-35.0) 10/06/21 04:45 RDW 13.9 % (11.6-16.5) 10/06/21 04:45 Plt Count 228 X10^3/uL (150.0-450.0) 10/06/21 04:45 MPV 11.1 fL (7.4-11.0) H 10/06/21 04:45 Neut % (Auto) 66.4 % (42.0-75.0) 10/06/21 04:45 Lymph % (Auto) 14.3 % (21.0-51.0) L 10/06/21 04:45 [place] % (Auto) 16.5 % (0.0-13.0) H 10/06/21 04:45 Eos % (Auto) 1.4 % (0.9-2.9) 10/06/21 04:45 Baso % (Auto) 1.4 % (0.2-1.0) H 10/06/21 04:45 Neut # (Auto) 4.2 x10^3/uL (2.2-4.8) 10/06/21 04:45 Lymph # (Auto) 0.9 X10^3/uL (1.3-2.9) L 10/06/21 04:45 [place] # (Auto) 1.0 x10^3/uL (0.3-0.8) H 10/06/21 04:45 Eos # (Auto) 0.1 x10^3/uL (0.0-0.2) 10/06/21 04:45 Baso # (Auto) 0.1 X10^3/uL (0.0-0.1) 10/06/21 04:45 Absolute Nucleated RBC 0.0 /100WBC 10/06/21 04:45 PT 15.0 SECONDS (11.8-14.3) 10/03/21 22:18 INR Target Range - 10/03/21 22:18 INR 1.22 (0.8-1.3) 10/03/21 22:18 APTT 76.4 SECONDS (22.9-36.5) H 10/06/21 04:45 PTT Comment - 10/06/21 04:45 Sodium 134 mmol/L (136-145) L 10/06/21 04:45 Corrected Sodium 135 mmol/L (136-145) L 10/06/21 04:45 Potassium 4.0 mmol/L (3.5-5.1) 10/06/21 04:45 Chloride 92 mmol/L (98-107) L 10/06/21 04:45 Carbon Dioxide 33.2 mmol/L (21-32) H 10/06/21 04:45 BUN 32 mg/dL (7-18) H 10/06/21 04:45 Creatinine 3.75 mg/dL (0.70-1.30) H 10/06/21 04:45 Est GFR (MDRD) Af Amer 21 (>60) L 10/06/21 04:45 Est GFR (MDRD) Non-Af 17 (>60) L 10/06/21 04:45 Glucose 128 mg/dL (65-99) H 10/06/21 04:45 Calcium 8.2 mg/dL (8.5-10.1) L 10/06/21 04:45 Corrected Calcium 9.2 mg/dL (8.5-10.1) 10/06/21 04:45 Total Bilirubin 0.50 mg/dL (0.2-1.0) 10/06/21 04:45 AST 19 Units/L (15-37) 10/06/21 04:45 ALT 19 Units/L (12-78) 10/06/21 04:45 Alkaline Phosphatase 440 Units/L (46-116) H 10/06/21 04:45 Creatine Kinase 36 Units/L (39-308) L 10/04/21 08:05 CK-MB (CK-2) 1.2 ng/mL (0-4.0) 10/04/21 08:05 CK/CKMB % Calc 3.3 % (<4) 10/04/21 08:05 Troponin I High Sens 82.2 ng/L (4.0-60.0) H* 10/04/21 08:05 B-Natriuretic Peptide 1210 pg/mL (0-79) H* 10/06/21 04:45 Total Protein 6.2 g/dL (6.4-8.2) L 10/06/21 04:45 Albumin 2.8 g/dL (3.4-5.0) L 10/06/21 04:45 Globulin 3.4 g/dL (2.5-4.5) 10/06/21 04:45 Albumin/Globulin Ratio 0.8 Ratio (1.1-2.1) L 10/06/21 04:45 Total PSA 0.81 ng/mL (0.13-4.0) 10/04/21 05:30 Specimen Type Clean catch urine 10/03/21 09:54 Urine Color Yellow (YELLOW) 10/03/21 09:54 Urine Appearance Clear (CLEAR) 10/03/21 09:54 Urine pH 6.0 (5.0 - 8.0) 10/03/21 09:54 Ur Specific [place] 1.010 (1.000-1.030) 10/03/21 09:54 Urine Protein 1+ (NEGATIVE) 10/03/21 09:54 Urine Glucose (UA) Negative (NEGATIVE) 10/03/21 09:54 Urine Ketones 1+ (NEGATIVE) 10/03/21 09:54 Urine Blood 1+ (NEGATIVE) 10/03/21 09:54 Urine Nitrite Negative (NEGATIVE) 10/03/21 09:54 Urine Bilirubin Negative (NEGATIVE) 10/03/21 09:54 Urine Urobilinogen Normal (NORMAL) 10/03/21 09:54 Ur Leukocyte Esterase Negative (NEGATIVE) 10/03/21 09:54 Urine RBC 0-2 /HPF (0-3) 10/03/21 09:54 Urine WBC 0-2 /HPF (0-5) 10/03/21 09:54 Ur Squamous Epith Cells Rare /HPF (NEGATIVE) 10/03/21 09:54 Urine Bacteria Negative /HPF (NEGATIVE) 10/03/21 09:54 Ur Culture Indicated? No/not indicated 10/03/21 09:54 SARS-CoV-2 (PCR) Negative (NEGATIVE) 10/03/21 08:37 Influenza Type A (PCR) Negative (NEGATIVE) 10/03/21 08:37 Influenza Type B (PCR) Negative (NEGATIVE) 10/03/21 08:37 RSV (PCR) Negative (NEGATIVE) 10/03/21 08:37 Plan (1) Myocardial infarct: Status: Acute Qualifiers: Myocardial infarction type: non-ST elevation myocardial infarction Qualified Code(s): I21.4 - Non-ST elevation (NSTEMI) myocardial infarction Plan: Supplemental O2, as needed morphine, aspirin and heparin drip per protocol. (2) Chest pain: Status: Acute Qualifiers: Chest pain type: precordial pain Qualified Code(s): R07.2 - Precordial pain Plan: Follow troponins with serial cardiac enzymes and EKGs (3) Congestive heart failure (CHF): Status: Acute Plan: Daily BMPs and Lasix IV every 12 hours (4) Lumbar back pain: Status: Acute Plan: Check lumbar spine/check CT lumbar spine (5) Elevated alkaline phosphatase level: Status: Acute Plan: Check isoenzyme levels for alkaline phosphatase/check L-spine/check CT L-spine (6) CAD (coronary artery disease): Status: Chronic (7) Hypertension: Status: Chronic Plan: Continue the patient's Coreg (8) Hyperlipidemia: Status: Chronic Plan: Continue patient's statin he takes. (9) Hx of CABG: Status: Chronic (10) Bone metastasis: Status: Acute Plan: Follow-up alkaline phosphatase isoenzymes level when available next follow-up with CT of the lungs and abdomen and pelvis with contrast when results are available.
[2021-10-06] MEDS: NS 1,000 ML IV 1,000 ML IV SCH (10:14)
[2021-10-06] MEDS ORDERED: ROXICODONE TAB 5 MG PO PRN (11:20)
[2021-10-06] MEDS: LIPITOR TAB 80 MG PO SCH (21:01)
[2021-10-06] MEDS: ZOFRAN INJ 4 MG VIAL IVP PRN (23:12)
[2021-10-06] MEDS: ROXICODONE TAB 5 MG PO PRN (23:13)
[2021-10-07] MEDS: DUONEB 0.5 MG/3 MG (3 mL) NEB SCH ×6 (00:20→20:31)
[2021-10-07] MEDS: NS 1,000 ML IV 1,000 ML IV SCH ×2 (00:42→05:21)
[2021-10-07 02:00] LABS: BASOPHILS # (AUTO) 0.1 X10^3/uL (0.0-0.1); BASOPHILS % (AUTO) 1.7 % (0.2-1.0); EOSINOPHILS # (AUTO) 0.1 x10^3/uL (0.0-0.2); EOSINOPHILS % (AUTO) 1.9 % (0.9-2.9); HEMATOCRIT 39.6 % (42.0-54.0); HEMOGLOBIN 13.1 g/dL (13.5-18.0); LYMPHOCYTES # (AUTO) 0.9 X10^3/uL (1.3-2.9); LYMPHOCYTES % (AUTO) 15.6 % (21.0-51.0); MEAN CORPUSCULAR HEMOGLOBIN 29.5 pg (27.0-34.0); MEAN CORPUSCULAR HGB CONC 33.2 g/dL (33.0-35.0); MEAN CORPUSCULAR VOLUME 88.7 fL (80.0-100.0); MEAN PLATELET VOLUME 10.6 fL (7.4-11.0); MONOCYTES # (AUTO) 0.8 x10^3/uL (0.3-0.8); MONOCYTES % (AUTO) 12.9 % (0.0-13.0); NEUTROPHILS # (AUTO) 4.1 x10^3/uL (2.2-4.8); NEUTROPHILS % (AUTO) 67.9 % (42.0-75.0); RED BLOOD COUNT 4.46 X10^6/uL (4.7-6.0); RED CELL DISTRIBUTION WIDTH 14.3 % (11.6-16.5); WHITE BLOOD COUNT 6.1 X10^3/uL (3.6-10.0)
[2021-10-07] MEDS: TYLENOL 325 MG TAB PO PRN (02:01)
[2021-10-07 02:15] LABS: CALCIUM 7.9 mg/dL (8.5-10.1); COR CA(FOR HYPOALB) 8.7 mg/dL (8.5-10.1); CREATININE 5.78 mg/dL (0.70-1.30); TOTAL PROTEIN 6.6 g/dL (6.4-8.2)
[2021-10-07] MEDS: MORPHINE SULFATE INJ 10 MG IVP PRN ×2 (03:01→14:45)
[2021-10-07 04:29] LABS: BILIRUBIN,URINE 1+ (NEGATIVE); BLOOD/HEMOGLOBIN,URINE NEGATIVE (NEGATIVE); GLUCOSE, URINE NEGATIVE (NEGATIVE); KETONES,URINE NEGATIVE (NEGATIVE); LEUKOCYTE ESTERASE ,URINE 1+ (NEGATIVE); NITRITES,URINE NEGATIVE (NEGATIVE); PROTEIN,URINE 1+ (NEGATIVE); UROBILINOGEN,URINE NORMAL (NORMAL)
[2021-10-07 04:40] LABS: APPEARANCE,URINE CLEAR (CLEAR); BACTERIA,URINE 2+ /HPF (NEGATIVE); COLOR,URINE AMBER (YELLOW); RBC,URINE 0-2 /HPF (0-3); SQUAMOUS EPITHELIAL CELL,UR RARE /HPF (NEGATIVE)
[2021-10-07 04:41] LABS: HYALINE CASTS, URINE MODERATE /LPF (NEGATIVE); TRANSITIONAL EPI CELLS,URINE FEW /HPF (NEGATIVE)
--- NOTE | 2021-10-07 06:39 | RAD ---
HISTORYFollow-up CHFSTUDYPortable AP [id number] heart is upper-normal in transverse diameter. There is no definite pneumonia, significant atelectasis or pleural fluid identified. Mild pulmonary vascular prominence may be related to nonstandard patient position.IMPRESSIONBorderline cardiomegaly; no significant pulmonary or pleural lesion demonstrated.Electronically signed by: MEGAN ASTORGA (Oct 07, 2021 06:37:39)
[2021-10-07] MEDS ORDERED: NS 1,000 ML IV 1,000 ML IV PRN (07:42)
[2021-10-07] MEDS: ASPIRIN EC 81 MG PO SCH (08:17)
[2021-10-07] MEDS: FLOMAX PO SCH (08:17)
[2021-10-07] MEDS: ENTRESTO 24/26 MG TAB PO SCH ×2 (08:17→20:46)
[2021-10-07] MEDS: PLAVIX PO SCH (08:18)
[2021-10-07] MEDS: COREG TAB 6.25 MG PO SCH ×2 (08:18→20:46)
[2021-10-07] MEDS ORDERED: ROCEPHIN 1 GRAM IV PREMIX 1 G/50 ML IV.SOLN. IV SCH (09:00)
[2021-10-07] MEDS: PULMICORT NEB TX 0.5 MG NEB SCH ×2 (09:25→20:31)
[2021-10-07] MEDS: ROCEPHIN VIAL 1 GRAM 1 G in NS 100 ML IV 100 ML IV SCH (09:48)
[2021-10-07] MEDS: ROXICODONE TAB 5 MG PO PRN ×2 (10:44→20:48)
[2021-10-07 15:22] LABS: CKMB % 2.1 % (<4); CREATINE KINASE MB 1.4 ng/mL (0-4.0)
[2021-10-07] MEDS: LIPITOR TAB 80 MG PO SCH (20:47)
[2021-10-07 21:43] LABS: CKMB % 2.7 % (<4); CREATINE KINASE MB 1.9 ng/mL (0-4.0)
[2021-10-08] MEDS: DUONEB 0.5 MG/3 MG (3 mL) NEB SCH ×5 (00:35→16:12)
[2021-10-08 03:47] LABS: EOSINOPHILS # (AUTO) 0.1 x10^3/uL (0.0-0.2); HEMOGLOBIN 11.4 g/dL (13.5-18.0)
[2021-10-08 03:50] LABS: BASOPHILS # (AUTO) 0.1 X10^3/uL (0.0-0.1); BASOPHILS % (AUTO) 1.3 % (0.2-1.0); EOSINOPHILS % (AUTO) 1.6 % (0.9-2.9); HEMATOCRIT 34.2 % (42.0-54.0); LYMPHOCYTES # (AUTO) 0.8 X10^3/uL (1.3-2.9); LYMPHOCYTES % (AUTO) 11.7 % (21.0-51.0); MEAN CORPUSCULAR HEMOGLOBIN 29.6 pg (27.0-34.0); MEAN CORPUSCULAR HGB CONC 33.5 g/dL (33.0-35.0); MEAN CORPUSCULAR VOLUME 88.3 fL (80.0-100.0); MEAN PLATELET VOLUME 11.2 fL (7.4-11.0); MONOCYTES % (AUTO) 15.4 % (0.0-13.0); NEUTROPHILS # (AUTO) 4.6 x10^3/uL (2.2-4.8); RED BLOOD COUNT 3.87 X10^6/uL (4.7-6.0); RED CELL DISTRIBUTION WIDTH 13.8 % (11.6-16.5); WHITE BLOOD COUNT 6.5 X10^3/uL (3.6-10.0)
[2021-10-08 04:00] LABS: ALANINE AMINOTRANSFERASE 22 Units/L (12-78); ALBUMIN 2.6 g/dL (3.4-5.0); ALKALINE PHOSPHATASE 337 Units/L (46-116); ASPARTATE AMINO TRANSFERASE 24 Units/L (15-37); BLOOD UREA NITROGEN 48 mg/dL (7-18); CALCIUM 7.6 mg/dL (8.5-10.1); CARBON DIOXIDE 27.2 mmol/L (21-32); CHLORIDE 95 mmol/L (98-107); CKMB % 2.9 % (<4); COR CA(FOR HYPOALB) 8.7 mg/dL (8.5-10.1); CREATINE KINASE 59 Units/L (39-308); CREATINE KINASE MB 1.7 ng/mL (0-4.0); CREATININE 6.39 mg/dL (0.70-1.30); SODIUM 130 mmol/L (136-145); TOTAL PROTEIN 5.7 g/dL (6.4-8.2); eGFR NON BLACK RACES 9 (>60)
--- NOTE | 2021-10-08 06:04 | RAD ---
HISTORYCongestive heart failureSTUDYChest AP [id number]/[id number] t is status post median sternotomy. The heart is upper limits normal in size. The aorta is calcified. The luis are normal. No definite congestive heart failure is identified. No acute alveolar infiltrates or pleural effusions are identified. Bony thorax is unremarkable.IMPRESSIONHeart upper limits normal in size. No definite congestive heart failureNo definite acute infiltratesElectronically signed by: GARCÍA GARDNER (Oct 08, 2021 06:03:21)
[2021-10-08] MEDS: PULMICORT NEB TX 0.5 MG NEB SCH (08:45)
[2021-10-08] MEDS: COREG TAB 6.25 MG PO SCH (08:53)
[2021-10-08] MEDS: ASPIRIN EC 81 MG PO SCH (08:53)
[2021-10-08] MEDS: FLOMAX PO SCH (08:54)
[2021-10-08] MEDS: PLAVIX PO SCH (08:54)
[2021-10-08] MEDS: ROCEPHIN VIAL 1 GRAM 1 G in NS 100 ML IV 100 ML IV SCH (08:55)
[2021-10-08] MEDS: ENTRESTO 24/26 MG TAB PO SCH (08:58)
[2021-10-08 09:56] LABS: CKMB % 3.2 % (<4); CREATINE KINASE MB 1.9 ng/mL (0-4.0)
--- NOTE | 2021-10-08 10:22 | PCM.PROG ---
Progress Note Progress Note for Day of Date of Exam: 10/07/21 Subjective Subjective: Pt is a 71 year old male admitted for NSTEMI, CHF exacerbation, and was found to have bone metastasis on imaging. This morning the patient's creatinine is gone up to greater than 5. The patient is now progressing to acute renal failure. We stopped the Lasix this morning and I will put him on IV fluid. Reports his pain is better controlled with the morphine and is not getting sick with the pain medicine now as it did with the Dilaudid. I will put in a consult with Dr. Nguyen general surgeon to see if he can do colonoscopy and EGD discussed find a source of cancer. Past Medical Family Social History Allergies: Allergies Penicillins Allergy (Verified 07/20/20 19:17) Review of Systems ROS: No change since H&P Vital Signs and I&O's Vital Signs: Temperature 98.2 F Pulse Rate [Left Brachial] 92 Pulse Rate 87 Respiratory Rate 16 Blood Pressure [Right Arm] 92/60 Blood Pressure [Left Arm] 130/57 Blood Pressure 105/52 O2 Sat by Pulse Oximetry 97 Intake and Output: Intake & Output 10/05/21 10/06/21 10/07/21 10/08/21 11:59 11:59 11:59 11:59 Intake Total 1800.5 / 1800.5 1807 / 1807 1900 / 1900 1940 / 1940 Output Total 600 / 600 125 / 125 360 / 360 Balance 1200.5 / 1200.5 1806 / 1806 1775 / 1775 1580 / 1580 Physical Exam Oriented: Normal, Time, Person and Place Eyes: Normal Ear: Normal Nose: Normal Throat: Normal Respiratory: Diminished and Rales Cardiovascular: Normal : Normal Auscultation: Bowel Sounds: Normal Tenderness: Normal and Other (Abdomen is distended and left lower quadrant tenderness to palpation) Skin: Normal Musculoskeletal: Back:Lumbar Psychiatric: Normal Mood Description: Appropriate Affect: Normal Speech Pattern: Clear and Appropriate Laboratory and Diagnostics Result Diagrams: 10/08/21 03:20 10/08/21 03:20 Labs: 10/07/21 03:35 Urine,Catheterized Urine Culture - Preliminary Laboratory WBC 6.5 X10^3/uL (3.6-10.0) 10/08/21 03:20 RBC 3.87 X10^6/uL (4.7-6.0) L 10/08/21 03:20 Hgb 11.4 g/dL (13.5-18.0) L 10/08/21 03:20 Hct 34.2 % (42.0-54.0) L 10/08/21 03:20 MCV 88.3 fL (80.0-100.0) 10/08/21 03:20 MCH 29.6 pg (27.0-34.0) 10/08/21 03:20 MCHC 33.5 g/dL (33.0-35.0) 10/08/21 03:20 RDW 13.8 % (11.6-16.5) 10/08/21 03:20 Plt Count 216 X10^3/uL (150.0-450.0) 10/08/21 03:20 MPV 11.2 fL (7.4-11.0) H 10/08/21 03:20 Neut % (Auto) 70.0 % (42.0-75.0) 10/08/21 03:20 Lymph % (Auto) 11.7 % (21.0-51.0) L 10/08/21 03:20 [place] % (Auto) 15.4 % (0.0-13.0) H 10/08/21 03:20 Eos % (Auto) 1.6 % (0.9-2.9) 10/08/21 03:20 Baso % (Auto) 1.3 % (0.2-1.0) H 10/08/21 03:20 Neut # (Auto) 4.6 x10^3/uL (2.2-4.8) 10/08/21 03:20 Lymph # (Auto) 0.8 X10^3/uL (1.3-2.9) L 10/08/21 03:20 [place] # (Auto) 1.0 x10^3/uL (0.3-0.8) H 10/08/21 03:20 Eos # (Auto) 0.1 x10^3/uL (0.0-0.2) 10/08/21 03:20 Baso # (Auto) 0.1 X10^3/uL (0.0-0.1) 10/08/21 03:20 Absolute Nucleated RBC 0.0 /100WBC 10/08/21 03:20 PT 15.0 SECONDS (11.8-14.3) 10/03/21 22:18 INR Target Range - 10/03/21 22:18 INR 1.22 (0.8-1.3) 10/03/21 22:18 APTT 76.4 SECONDS (22.9-36.5) H 10/06/21 04:45 PTT Comment - 10/06/21 04:45 Sodium 130 mmol/L (136-145) L 10/08/21 03:20 Corrected Sodium TNP 10/08/21 03:20 Potassium 4.9 mmol/L (3.5-5.1) 10/08/21 03:20 Chloride 95 mmol/L (98-107) L 10/08/21 03:20 Carbon Dioxide 27.2 mmol/L (21-32) 10/08/21 03:20 BUN 48 mg/dL (7-18) H 10/08/21 03:20 Creatinine 6.39 mg/dL (0.70-1.30) H 10/08/21 03:20 Est GFR (MDRD) Af Amer 11 (>60) L 10/08/21 03:20 Est GFR (MDRD) Non-Af 9 (>60) L 10/08/21 03:20 Glucose 93 mg/dL (65-99) 10/08/21 03:20 Calcium 7.6 mg/dL (8.5-10.1) L 10/08/21 03:20 Corrected Calcium 8.7 mg/dL (8.5-10.1) 10/08/21 03:20 Total Bilirubin 0.60 mg/dL (0.2-1.0) 10/08/21 03:20 AST 24 Units/L (15-37) 10/08/21 03:20 ALT 22 Units/L (12-78) 10/08/21 03:20 Alkaline Phosphatase 337 Units/L (46-116) H 10/08/21 03:20 Creatine Kinase 59 Units/L (39-308) 10/08/21 09:10 CK-MB (CK-2) 1.9 ng/mL (0-4.0) 10/08/21 09:10 CK/CKMB % Calc 3.2 % (<4) 10/08/21 09:10 Troponin I High Sens 944.6 ng/L (4.0-60.0) H* 10/08/21 09:10 B-Natriuretic Peptide 3570 pg/mL (0-79) H* 10/08/21 03:20 Total Protein 5.7 g/dL (6.4-8.2) L 10/08/21 03:20 Albumin 2.6 g/dL (3.4-5.0) L 10/08/21 03:20 Globulin 3.1 g/dL (2.5-4.5) 10/08/21 03:20 Albumin/Globulin Ratio 0.8 Ratio (1.1-2.1) L 10/08/21 03:20 Total PSA 0.81 ng/mL (0.13-4.0) 10/04/21 05:30 Specimen Type Catherized urine 10/07/21 03:35 Urine Color [place] (YELLOW) 10/07/21 03:35 Urine Appearance Clear (CLEAR) 10/07/21 03:35 Urine pH 5.0 (5.0 - 8.0) 10/07/21 03:35 Ur Specific [place] 1.020 (1.000-1.030) 10/07/21 03:35 Urine Protein 1+ (NEGATIVE) 10/07/21 03:35 Urine Glucose (UA) Negative (NEGATIVE) 10/07/21 03:35 Urine Ketones Negative (NEGATIVE) 10/07/21 03:35 Urine Blood Negative (NEGATIVE) 10/07/21 03:35 Urine Nitrite Negative (NEGATIVE) 10/07/21 03:35 Urine Bilirubin 1+ (NEGATIVE) 10/07/21 03:35 Urine Urobilinogen Normal (NORMAL) 10/07/21 03:35 Ur Leukocyte Esterase 1+ (NEGATIVE) 10/07/21 03:35 Urine RBC 0-2 /HPF (0-3) 10/07/21 03:35 Urine WBC 3-5 /HPF (0-5) 10/07/21 03:35 Ur Squamous Epith Cells Rare /HPF (NEGATIVE) 10/07/21 03:35 Ur Transition Epith Cell Few /HPF (NEGATIVE) 10/07/21 03:35 Amorphous Sediment 1+ /HPF (NEGATIVE) 10/07/21 03:35 Urine Bacteria 2+ /HPF (NEGATIVE) 10/07/21 03:35 Hyaline Casts Moderate /LPF (NEGATIVE) 10/07/21 03:35 Urine Mucus Few /HPF (NEGATIVE) 10/07/21 03:35 Ur Culture Indicated? Yes/culture set up 10/07/21 03:35 SARS-CoV-2 (PCR) Negative (NEGATIVE) 10/03/21 08:37 Influenza Type A (PCR) Negative (NEGATIVE) 10/03/21 08:37 Influenza Type B (PCR) Negative (NEGATIVE) 10/03/21 08:37 RSV (PCR) Negative (NEGATIVE) 10/03/21 08:37 Plan (1) Myocardial infarct: Status: Acute Qualifiers: Myocardial infarction type: non-ST elevation myocardial infarction Qualified Code(s): I21.4 - Non-ST elevation (NSTEMI) myocardial infarction Plan: Supplemental O2, as needed morphine, aspirin and heparin drip per protocol. (2) Chest pain: Status: Acute Qualifiers: Chest pain type: precordial pain Qualified Code(s): R07.2 - Precordial pain Plan: Follow troponins with serial cardiac enzymes and EKGs (3) Congestive heart failure (CHF): Status: Acute Plan: Daily BMPs and Lasix IV every 12 hours (4) Lumbar back pain: Status: Acute Plan: Check lumbar spine/check CT lumbar spine (5) Elevated alkaline phosphatase level: Status: Acute Plan: Check isoenzyme levels for alkaline phosphatase/check L-spine/check CT L-spine (6) CAD (coronary artery disease): Status: Chronic (7) Hypertension: Status: Chronic Plan: Continue the patient's Coreg (8) Hyperlipidemia: Status: Chronic Plan: Continue patient's statin he takes. (9) Hx of CABG: Status: Chronic (10) Bone metastasis: Status: Acute Plan: Follow-up alkaline phosphatase isoenzymes level when available next follow-up with CT of the lungs and abdomen and pelvis with contrast when results are available. (11) Acute renal failure: Status: Acute Plan: Restart IV fluid 125 mL/h every 8 hours and DC Lasix.
--- NOTE | 2021-10-08 10:29 | PCM.PROG ---
Progress Note Progress Note for Day of Date of Exam: 10/08/21 Subjective Subjective: Pt is a 71 year old male admitted for NSTEMI, CHF exacerbation, and was found to have bone metastasis on imaging. The patient's renal function has deteriorated since yesterday despite IV fluid. His creatinine is now 6.39 with a BUN of 48. He is hyponatremic with a sodium of 130 but the patient is alert and cooperative. Yesterday after I saw the patient he had an episode of chest pain and later on which had a troponin and EKG that showed his troponin to be in the 300s. This is falsely slightly elevated given his renal function at this time but he does have some anterior ischemic changes in inferior ischemic changes on EKG. His troponins have increased to the night but he is chest pain- free at this time. I tried to transfer the patient to [place], [place] yesterday but the patient refused this. He reported that he wanted to stay here in the [facility] where he could be near his family. I explained to the patient that given his elevated troponins and acute renal failure that he would be better off being transferred to a tertiary care facility such as [facility] in [place], [place]. He reports that he would discuss it with his daughter and get back to me later today regarding a transfer. In the meantime we will continue to control his pain and hold his IV fluid as his BNP is now greater than 3000 this morning. Past Medical Family Social History Allergies: Allergies Penicillins Allergy (Verified 07/20/20 19:17) Review of Systems ROS: No change since H&P Vital Signs and I&O's Vital Signs: Temperature 98.2 F Pulse Rate [Left Brachial] 92 Pulse Rate 87 Respiratory Rate 16 Blood Pressure [Right Arm] 92/60 Blood Pressure [Left Arm] 130/57 Blood Pressure 105/52 O2 Sat by Pulse Oximetry 97 Intake and Output: Intake & Output 10/05/21 10/06/21 10/07/21 10/08/21 11:59 11:59 11:59 11:59 Intake Total 1800.5 / 1800.5 1807 / 1807 1900 / 1900 1940 / 1940 Output Total 600 / 600 125 / 125 360 / 360 Balance 1200.5 / 1200.5 1806 / 1806 1775 / 1775 1580 / 1580 Physical Exam Oriented: Normal, Time, Person and Place Eyes: Normal Ear: Normal Nose: Normal Throat: Normal Respiratory: Diminished and Rales Cardiovascular: Normal : Normal Auscultation: Bowel Sounds: Normal Tenderness: Normal and Other (Abdomen is distended and left lower quadrant tenderness to palpation) Skin: Normal Musculoskeletal: Back:Lumbar Psychiatric: Normal Mood Description: Appropriate Affect: Normal Speech Pattern: Clear and Appropriate Laboratory and Diagnostics Result Diagrams: 10/08/21 03:20 10/08/21 03:20 Labs: 10/07/21 03:35 Urine,Catheterized Urine Culture - Preliminary Laboratory WBC 6.5 X10^3/uL (3.6-10.0) 10/08/21 03:20 RBC 3.87 X10^6/uL (4.7-6.0) L 10/08/21 03:20 Hgb 11.4 g/dL (13.5-18.0) L 10/08/21 03:20 Hct 34.2 % (42.0-54.0) L 10/08/21 03:20 MCV 88.3 fL (80.0-100.0) 10/08/21 03:20 MCH 29.6 pg (27.0-34.0) 10/08/21 03:20 MCHC 33.5 g/dL (33.0-35.0) 10/08/21 03:20 RDW 13.8 % (11.6-16.5) 10/08/21 03:20 Plt Count 216 X10^3/uL (150.0-450.0) 10/08/21 03:20 MPV 11.2 fL (7.4-11.0) H 10/08/21 03:20 Neut % (Auto) 70.0 % (42.0-75.0) 10/08/21 03:20 Lymph % (Auto) 11.7 % (21.0-51.0) L 10/08/21 03:20 [place] % (Auto) 15.4 % (0.0-13.0) H 10/08/21 03:20 Eos % (Auto) 1.6 % (0.9-2.9) 10/08/21 03:20 Baso % (Auto) 1.3 % (0.2-1.0) H 10/08/21 03:20 Neut # (Auto) 4.6 x10^3/uL (2.2-4.8) 10/08/21 03:20 Lymph # (Auto) 0.8 X10^3/uL (1.3-2.9) L 10/08/21 03:20 [place] # (Auto) 1.0 x10^3/uL (0.3-0.8) H 10/08/21 03:20 Eos # (Auto) 0.1 x10^3/uL (0.0-0.2) 10/08/21 03:20 Baso # (Auto) 0.1 X10^3/uL (0.0-0.1) 10/08/21 03:20 Absolute Nucleated RBC 0.0 /100WBC 10/08/21 03:20 PT 15.0 SECONDS (11.8-14.3) 10/03/21 22:18 INR Target Range - 10/03/21 22:18 INR 1.22 (0.8-1.3) 10/03/21 22:18 APTT 76.4 SECONDS (22.9-36.5) H 10/06/21 04:45 PTT Comment - 10/06/21 04:45 Sodium 130 mmol/L (136-145) L 10/08/21 03:20 Corrected Sodium TNP 10/08/21 03:20 Potassium 4.9 mmol/L (3.5-5.1) 10/08/21 03:20 Chloride 95 mmol/L (98-107) L 10/08/21 03:20 Carbon Dioxide 27.2 mmol/L (21-32) 10/08/21 03:20 BUN 48 mg/dL (7-18) H 10/08/21 03:20 Creatinine 6.39 mg/dL (0.70-1.30) H 10/08/21 03:20 Est GFR (MDRD) Af Amer 11 (>60) L 10/08/21 03:20 Est GFR (MDRD) Non-Af 9 (>60) L 10/08/21 03:20 Glucose 93 mg/dL (65-99) 10/08/21 03:20 Calcium 7.6 mg/dL (8.5-10.1) L 10/08/21 03:20 Corrected Calcium 8.7 mg/dL (8.5-10.1) 10/08/21 03:20 Total Bilirubin 0.60 mg/dL (0.2-1.0) 10/08/21 03:20 AST 24 Units/L (15-37) 10/08/21 03:20 ALT 22 Units/L (12-78) 10/08/21 03:20 Alkaline Phosphatase 337 Units/L (46-116) H 10/08/21 03:20 Creatine Kinase 59 Units/L (39-308) 10/08/21 09:10 CK-MB (CK-2) 1.9 ng/mL (0-4.0) 10/08/21 09:10 CK/CKMB % Calc 3.2 % (<4) 10/08/21 09:10 Troponin I High Sens 944.6 ng/L (4.0-60.0) H* 10/08/21 09:10 B-Natriuretic Peptide 3570 pg/mL (0-79) H* 10/08/21 03:20 Total Protein 5.7 g/dL (6.4-8.2) L 10/08/21 03:20 Albumin 2.6 g/dL (3.4-5.0) L 10/08/21 03:20 Globulin 3.1 g/dL (2.5-4.5) 10/08/21 03:20 Albumin/Globulin Ratio 0.8 Ratio (1.1-2.1) L 10/08/21 03:20 Total PSA 0.81 ng/mL (0.13-4.0) 10/04/21 05:30 Specimen Type Catherized urine 10/07/21 03:35 Urine Color Lisa (YELLOW) 10/07/21 03:35 Urine Appearance Clear (CLEAR) 10/07/21 03:35 Urine pH 5.0 (5.0 - 8.0) 10/07/21 03:35 Ur Specific [place] 1.020 (1.000-1.030) 10/07/21 03:35 Urine Protein 1+ (NEGATIVE) 10/07/21 03:35 Urine Glucose (UA) Negative (NEGATIVE) 10/07/21 03:35 Urine Ketones Negative (NEGATIVE) 10/07/21 03:35 Urine Blood Negative (NEGATIVE) 10/07/21 03:35 Urine Nitrite Negative (NEGATIVE) 10/07/21 03:35 Urine Bilirubin 1+ (NEGATIVE) 10/07/21 03:35 Urine Urobilinogen Normal (NORMAL) 10/07/21 03:35 Ur Leukocyte Esterase 1+ (NEGATIVE) 10/07/21 03:35 Urine RBC 0-2 /HPF (0-3) 10/07/21 03:35 Urine WBC 3-5 /HPF (0-5) 10/07/21 03:35 Ur Squamous Epith Cells Rare /HPF (NEGATIVE) 10/07/21 03:35 Ur Transition Epith Cell Few /HPF (NEGATIVE) 10/07/21 03:35 Amorphous Sediment 1+ /HPF (NEGATIVE) 10/07/21 03:35 Urine Bacteria 2+ /HPF (NEGATIVE) 10/07/21 03:35 Hyaline Casts Moderate /LPF (NEGATIVE) 10/07/21 03:35 Urine Mucus Few /HPF (NEGATIVE) 10/07/21 03:35 Ur Culture Indicated? Yes/culture set up 10/07/21 03:35 SARS-CoV-2 (PCR) Negative (NEGATIVE) 10/03/21 08:37 Influenza Type A (PCR) Negative (NEGATIVE) 10/03/21 08:37 Influenza Type B (PCR) Negative (NEGATIVE) 10/03/21 08:37 RSV (PCR) Negative (NEGATIVE) 10/03/21 08:37 Plan (1) Myocardial infarct: Status: Acute Qualifiers: Myocardial infarction type: non-ST elevation myocardial infarction Qualified Code(s): I21.4 - Non-ST elevation (NSTEMI) myocardial infarction Plan: Supplemental O2, as needed morphine, aspirin and heparin drip per protocol. (2) Chest pain: Status: Acute Qualifiers: Chest pain type: precordial pain Qualified Code(s): R07.2 - Precordial pain Narrative Support Text: Last episode of chest pain yesterday had resulted in increasing troponins of the night. However he does have a significantly elevated BUN and creatinine indicating he is in acute renal failure which would falsely elevate the troponin levels. Plan: Follow troponins with serial cardiac enzymes and EKGs (3) Congestive heart failure (CHF): Status: Acute Narrative Support Text: BNP greater than 3000 this morning. Plan: Hold IV Lasix at this time because of his acute renal failure. (4) Lumbar back pain: Status: Acute Plan: Check lumbar spine/check CT lumbar spine (5) Elevated alkaline phosphatase level: Status: Acute Plan: Check isoenzyme levels for alkaline phosphatase/check L-spine/check CT L-spine (6) CAD (coronary artery disease): Status: Chronic (7) Hypertension: Status: Chronic Plan: Continue the patient's Coreg (8) Hyperlipidemia: Status: Chronic Plan: Continue patient's statin he takes. (9) Hx of CABG: Status: Chronic (10) Bone metastasis: Status: Acute Plan: Follow-up alkaline phosphatase isoenzymes level when available next follow-up with CT of the lungs and abdomen and pelvis with contrast when results are available. (11) Acute renal failure: Status: Acute Plan: Unfortunately I will have to hold his IV fluid at this time given his elevated BNP indicating congestive heart failure worsening.
[2021-10-08] MEDS ORDERED: MAALOX or MYLANTA PO PRN (17:11)
[2021-10-08] MEDS ORDERED: MAALOX or MYLANTA ONE (17:20)
[2021-10-08 20:36] VITALS: BP 113/58
--- NOTE | 2021-10-10 10:18 | PCM.DCPLAN ---
DISCHARGE SUMMARY Admission Date Date of Admission: 10/03/21 Discharge Date Discharge Date: 10/08/21 Admission Diagnoses (1) Myocardial infarct: Status: Acute (2) Chest pain: Status: Acute (3) Congestive heart failure (CHF): Status: Acute (4) Lumbar back pain: Status: Acute (5) Elevated alkaline phosphatase level: Status: Acute (6) CAD (coronary artery disease): Status: Chronic (7) Hypertension: Status: Chronic (8) Hyperlipidemia: Status: Chronic (9) Hx of CABG: Status: Chronic (10) Bone metastasis: Status: Acute (11) Acute renal failure: Status: Acute Discharge Diagnoses Discharge Diagnosis: 1. Chest pain with NSTEMI 2. Acute renal failure 3. Bone metastasis unknown origin 4. History of coronary artery disease 5. Congestive heart failure Discharge Medications Discharge Medications: Home Medication List carvedilol 6.25 mg tablet (Coreg) 6.25 mg PO BID 10/03/21 [History] ketorolac 10 mg tablet 10 mg PO Q6H PRN 10/03/21 [History] ondansetron 8 mg disintegrating tablet 8 mg PO Q8H PRN Nausea 10/03/21 [History] sacubitril 97 mg-valsartan 103 mg tablet (Entresto) 1 tab PO BID 10/03/21 [History] tamsulosin 0.4 mg capsule 0.4 mg PO DAILY 10/03/21 [History] Prescriptions: Hospital Course Vital Signs: Temperature 98.3 F Pulse Rate [Left Brachial] 92 Pulse Rate 86 Respiratory Rate 22 Blood Pressure [Right Arm] 92/60 Blood Pressure [Left Arm] 130/57 Blood Pressure 113/58 O2 Sat by Pulse Oximetry 96 Latest Lab Results: Laboratory Last Values WBC 6.5 X10^3/uL (3.6-10.0) 10/08/21 03:20 RBC 3.87 X10^6/uL (4.7-6.0) L 10/08/21 03:20 Hgb 11.4 g/dL (13.5-18.0) L 10/08/21 03:20 Hct 34.2 % (42.0-54.0) L 10/08/21 03:20 MCV 88.3 fL (80.0-100.0) 10/08/21 03:20 MCH 29.6 pg (27.0-34.0) 10/08/21 03:20 MCHC 33.5 g/dL (33.0-35.0) 10/08/21 03:20 RDW 13.8 % (11.6-16.5) 10/08/21 03:20 Plt Count 216 X10^3/uL (150.0-450.0) 10/08/21 03:20 MPV 11.2 fL (7.4-11.0) H 10/08/21 03:20 Neut % (Auto) 70.0 % (42.0-75.0) 10/08/21 03:20 Lymph % (Auto) 11.7 % (21.0-51.0) L 10/08/21 03:20 [place] % (Auto) 15.4 % (0.0-13.0) H 10/08/21 03:20 Eos % (Auto) 1.6 % (0.9-2.9) 10/08/21 03:20 Baso % (Auto) 1.3 % (0.2-1.0) H 10/08/21 03:20 Neut # (Auto) 4.6 x10^3/uL (2.2-4.8) 10/08/21 03:20 Lymph # (Auto) 0.8 X10^3/uL (1.3-2.9) L 10/08/21 03:20 [place] # (Auto) 1.0 x10^3/uL (0.3-0.8) H 10/08/21 03:20 Eos # (Auto) 0.1 x10^3/uL (0.0-0.2) 10/08/21 03:20 Baso # (Auto) 0.1 X10^3/uL (0.0-0.1) 10/08/21 03:20 Absolute Nucleated RBC 0.0 /100WBC 10/08/21 03:20 PT 15.0 SECONDS (11.8-14.3) 10/03/21 22:18 INR Target Range - 10/03/21 22:18 INR 1.22 (0.8-1.3) 10/03/21 22:18 APTT 76.4 SECONDS (22.9-36.5) H 10/06/21 04:45 PTT Comment - 10/06/21 04:45 Sodium 130 mmol/L (136-145) L 10/08/21 03:20 Corrected Sodium TNP 10/08/21 03:20 Potassium 4.9 mmol/L (3.5-5.1) 10/08/21 03:20 Chloride 95 mmol/L (98-107) L 10/08/21 03:20 Carbon Dioxide 27.2 mmol/L (21-32) 10/08/21 03:20 BUN 48 mg/dL (7-18) H 10/08/21 03:20 Creatinine 6.39 mg/dL (0.70-1.30) H 10/08/21 03:20 Est GFR (MDRD) Af Amer 11 (>60) L 10/08/21 03:20 Est GFR (MDRD) Non-Af 9 (>60) L 10/08/21 03:20 Glucose 93 mg/dL (65-99) 10/08/21 03:20 Calcium 7.6 mg/dL (8.5-10.1) L 10/08/21 03:20 Corrected Calcium 8.7 mg/dL (8.5-10.1) 10/08/21 03:20 Total Bilirubin 0.60 mg/dL (0.2-1.0) 10/08/21 03:20 AST 24 Units/L (15-37) 10/08/21 03:20 ALT 22 Units/L (12-78) 10/08/21 03:20 Alkaline Phosphatase 337 Units/L (46-116) H 10/08/21 03:20 Creatine Kinase 59 Units/L (39-308) 10/08/21 09:10 CK-MB (CK-2) 1.9 ng/mL (0-4.0) 10/08/21 09:10 CK/CKMB % Calc 3.2 % (<4) 10/08/21 09:10 Troponin I High Sens 944.6 ng/L (4.0-60.0) H* 10/08/21 09:10 B-Natriuretic Peptide 3570 pg/mL (0-79) H* 10/08/21 03:20 Total Protein 5.7 g/dL (6.4-8.2) L 10/08/21 03:20 Albumin 2.6 g/dL (3.4-5.0) L 10/08/21 03:20 Globulin 3.1 g/dL (2.5-4.5) 10/08/21 03:20 Albumin/Globulin Ratio 0.8 Ratio (1.1-2.1) L 10/08/21 03:20 Total PSA 0.81 ng/mL (0.13-4.0) 10/04/21 05:30 Specimen Type Catherized urine 10/07/21 03:35 Urine Color Lisa (YELLOW) 10/07/21 03:35 Urine Appearance Clear (CLEAR) 10/07/21 03:35 Urine pH 5.0 (5.0 - 8.0) 10/07/21 03:35 Ur Specific [place] 1.020 (1.000-1.030) 10/07/21 03:35 Urine Protein 1+ (NEGATIVE) 10/07/21 03:35 Urine Glucose (UA) Negative (NEGATIVE) 10/07/21 03:35 Urine Ketones Negative (NEGATIVE) 10/07/21 03:35 Urine Blood Negative (NEGATIVE) 10/07/21 03:35 Urine Nitrite Negative (NEGATIVE) 10/07/21 03:35 Urine Bilirubin 1+ (NEGATIVE) 10/07/21 03:35 Urine Urobilinogen Normal (NORMAL) 10/07/21 03:35 Ur Leukocyte Esterase 1+ (NEGATIVE) 10/07/21 03:35 Urine RBC 0-2 /HPF (0-3) 10/07/21 03:35 Urine WBC 3-5 /HPF (0-5) 10/07/21 03:35 Ur Squamous Epith Cells Rare /HPF (NEGATIVE) 10/07/21 03:35 Ur Transition Epith Cell Few /HPF (NEGATIVE) 10/07/21 03:35 Amorphous Sediment 1+ /HPF (NEGATIVE) 10/07/21 03:35 Urine Bacteria 2+ /HPF (NEGATIVE) 10/07/21 03:35 Hyaline Casts Moderate /LPF (NEGATIVE) 10/07/21 03:35 Urine Mucus Few /HPF (NEGATIVE) 10/07/21 03:35 Ur Culture Indicated? Yes/culture set up 10/07/21 03:35 SARS-CoV-2 (PCR) Negative (NEGATIVE) 10/03/21 08:37 Influenza Type A (PCR) Negative (NEGATIVE) 10/03/21 08:37 Influenza Type B (PCR) Negative (NEGATIVE) 10/03/21 08:37 RSV (PCR) Negative (NEGATIVE) 10/03/21 08:37 Hospital Course: Following admission patient was continued to have low back pain so we did a CT of the lumbar spine which showed blastic lesions in the vertebral and pelvic bones. We suspected this was the cause of his pain since his alkaline phosphatase was elevated. We went ahead and CT to his lungs and abdomen and pelvis which showed more blastic lesions consistent with metastatic cancer. It was also found that he has some issue going on with his left kidney and a soft tissue mass obstructing his left mid ureter. In the following days his creatinine worsened and ended up trending up to 6.39. His creatinine was upper ones when he came in. Also during this time his troponins were elevated he did have some chest discomfort. He was put on a heparin drip but despite all this the patient wanted to stay here in our [facility] with his family given he was just told about the findings of the blastic lesions in the bone. Over the next few days the patient decided that he did not want to be transferred to [place], [place] at [facility] for further evaluation and treatment and to get a better idea with the cancer is coming from and to treat his acute renal failure and his coronary problems going on at this time. I am in agreement with this and the patient was transferred to [facility] in [place], [place] stable condition. I will be following up with gabriela thayer as outpatient upon his return to home.
== END 2021-10-08 20:32 | disposition short-term general hospital (02) | DRG 281 ==
LOC: ER 08:14 → MED/SURG 08:14 → OBSVTOIN 10:35 → MED/SURG 10:52 → ICU 22:38 → MED/SURG 10-06 16:45
PROVIDERS: ADMIT Family Medicine; ATTEND Family Medicine
DX: Z89.612 Acquired absence of left leg above knee; Z20.822 Contact with and (suspected) exposure to COVID-19; R26.89 Other abnormalities of gait and mobility; R79.82 Elevated C-reactive protein (CRP); R06.02 Shortness of breath; Z95.1 Presence of aortocoronary bypass graft; I25.10 Atherosclerotic heart disease of native coronary artery without angina pectoris; M54.59 Other low back pain; C79.51 Secondary malignant neoplasm of bone; I50.9 Heart failure, unspecified; I11.0 Hypertensive heart disease with heart failure; R74.8 Abnormal levels of other serum enzymes; R77.8 Other specified abnormalities of plasma proteins; E78.5 Hyperlipidemia, unspecified; R51.9 Headache, unspecified; I21.4 Non-ST elevation (NSTEMI) myocardial infarction; N17.8 Other acute kidney failure; E87.1 Hypo-osmolality and hyponatremia

== ENCOUNTER 2021-10-30 08:07 | Inpatient (IN) ==
[2021-10-30 08:18] LABS: ABG HCO3 27.5 mmol/L (22-26)
[2021-10-30 08:19] LABS: ABG ALLEN TEST POS
[2021-10-30 08:34] LABS: BASOPHILS # (AUTO) 0.1 X10^3/uL (0.0-0.1); BASOPHILS % (AUTO) 0.9 % (0.2-1.0); EOSINOPHILS # (AUTO) 0.2 x10^3/uL (0.0-0.2); EOSINOPHILS % (AUTO) 2.3 % (0.9-2.9); HEMATOCRIT 37.6 % (42.0-54.0); HEMOGLOBIN 12.4 g/dL (13.5-18.0); LYMPHOCYTES % (AUTO) 10.8 % (21.0-51.0); MEAN CORPUSCULAR HEMOGLOBIN 29.2 pg (27.0-34.0); MEAN CORPUSCULAR VOLUME 88.5 fL (80.0-100.0); MEAN PLATELET VOLUME 10.1 fL (7.4-11.0); MONOCYTES % (AUTO) 10.4 % (0.0-13.0); NEUTROPHILS # (AUTO) 7.1 x10^3/uL (2.2-4.8); NEUTROPHILS % (AUTO) 75.6 % (42.0-75.0); RED BLOOD COUNT 4.25 X10^6/uL (4.7-6.0); RED CELL DISTRIBUTION WIDTH 14.1 % (11.6-16.5); WHITE BLOOD COUNT 9.4 X10^3/uL (3.6-10.0)
[2021-10-30] MEDS ORDERED: ASPIRIN PO ONE (08:34)
--- NOTE | 2021-10-30 08:34 | DR.SOBA ---
[facility] Time Seen Time Seen by Provider: 10/30/21 08:32 Primary Care Physician Primary Care Physician: DR DHALIWAL HPI Comment HPI Comment: A 71 y/o male presenting SOB onset shortly after awakening this morning. There is no cough or fever. He has a non-radiating c/p that is described as pressure in chest. Other is of not voiding since last night. He denies home oxygen use. He is known with hx. of cancer with bone mets. - unsure of primary. PMHx. of CAD, M.I., COPD, amongst others. Complaints Chief Complaint:: PT WOKE UP THIS MORNING WITH C/O SEVERE SUBSTERNAL NONRADIATING CHEST PRESSURE RATED 7/10 ASSOCIATED WITH SHORTNESS OF BREATH. DENIES FEVER. STATES THAT HE HASN'T URINATED SINCE LAST NIGHT. COVID-19 Coronavirus risk:travel/contact w/high risk person: No Has patient experienced Coronavirus symptoms: No Coronavirus symptoms experienced: Shortness of Breath Reviewed Nurses Notes Reviewed: Yes Source History Provided: Patient Mode of Arrival Mode of Arrival: Wheelchair Timing Onset of Chief Complaint: 10/30/21 Context Onset:: At Rest PE Risk Factors:: None History of:: COPD and CHF Modifying Factors Improves:: Nothing Associated Signs and Symptoms Associated Signs and Symptoms: Chest Pain If Chest Pain Quality: Pressure like If Cough Cough: None PMH PMH Past Medical History: Yes Past Medical History: Anxiety, CHF, COPD, Coronary Artery Disease, Dyslipidemia, Hypertension and MA Past Medical History Comment: BPH, BONE CANCER Past Surgical History: Yes Surgical History: Angioplasty/Stents, Appendectomy and CABG/Valve Surgery Past Surgical History Comment: LEFT AKA Family History History of Family Medical Conditions: Yes Family Medical History: Diabetes Mellitus, MA, Coronary Artery Disease and Hypertension Social History Does patient currently use any type of tobacco product: No Have you used tobacco products in the last 12 months: No Type of Tobacco Use: None Does any household member use tobacco: No Alcohol Use: None Do you use any recreational Drugs:: No Lives With: Family Lives Where: Home Travel Risk Coronavirus risk:travel/contact w/high risk person: No Has patient experienced Coronavirus symptoms: No Infectious screening In the last 2 months have you had wt loss of >10#?: NO Have you had fever, night sweats or hemotysis?: No Have you traveled outside the country in the last 6 months?: No Isolation: Standard ROS Review of Systems Constitutional: No Symptoms Reported Eyes: No Symptoms Reported ENTM: No Symptoms Reported Respiratoy: Short of Breath Cardiovascular: Chest Pain Gastrointestinal/Abdominal: No Symptoms Reported Genitourinary: No Symptoms Reported Neurological: No Symptoms Reported Musculoskeletal: No Symptoms Reported Integumentary: No Symptoms Reported Hematologic/Lymphatic: No Symptoms Reported Endocrine: No Symptoms Reported Psychiatric: No Symptoms Reported All Other Systems: Reviewed and Negative PE Vital Signs Vitals: Pulse Rate 96 Respiratory Rate 26 Blood Pressure [Right Arm] 92/60 Blood Pressure [Left Arm] 130/57 Blood Pressure 120/70 O2 Sat by Pulse Oximetry 96 General Limitations: No Limitations General Appearance: Alert, In No Apparent Distress and Anxious Head Head Exam: Normal Inspection, Atraumatic and Normocephalic Eyes Eye exam: Normal Appearance and EOMI ENT ENT Exam: Normal Exam, Normal Oropharynx, Normal External Ear Exam and Mucous Membranes Moist Neck Neck Exam: Normal Inspection, Full ROM and Trachea Midline Chest Chest Inspection: Normal Inspection and Symmetric Chest Wall Rise Respiratory Respiratory Exam: Bilateral: Decreased Breath Sounds Cardiovascular Cardiovascular Exam: Normal Rhythm, Tachycardia, Normal Heart Sounds, +S1 and +S2 Abdominal Exam Abdominal Exam: Normal Inspection, Normal Bowel Sounds and Soft Extremities Extremities Exam: Full ROM and Other (he is s/p Lt. AKA) Back Back Exam: Normal Inspection and Full ROM Neurologic Neurological Exam: Alert and Oriented X3 Psychiatric Psychiatric Exam: Normal Affect and Normal Mood Skin Skin Exam: Dry, Intact and Normal Color MDM Differential Diagnosis Differential Diagnosis: Anxiety, CHF, COPD, Mycardial Infarction, Pneumonia, Pulmonary embolism and Respiratory Insufficiency COURSE Treatment Treatment: He had chest pain relief with administration of S/L NTG. His d-dimer is elevated (ddx: COPD, P.E, etc) He can't CT Scan chest. I spoke with his PCP, Dr. Dhaliwal and the pt. + family. Pt. opts to stay here. Admit orders written. V/Q Sccan has been ordered and he was started on Heparin protocol. Reevaluation 1st: Improved Education/Counseling Education/Counseling: Patient, Family, Education and Counseling Educated On: Treatment, Diagnosis, Prognosis and Needs for Follow Up ROR Labs Reviewed Result Diagrams: 10/30/21 08:14 10/30/21 08:14 Laboratory: WBC 9.4 X10^3/uL (3.6-10.0) 10/30/21 08:14 RBC 4.25 X10^6/uL (4.7-6.0) L 10/30/21 08:14 Hgb 12.4 g/dL (13.5-18.0) L 10/30/21 08:14 Hct 37.6 % (42.0-54.0) L 10/30/21 08:14 MCV 88.5 fL (80.0-100.0) 10/30/21 08:14 MCH 29.2 pg (27.0-34.0) 10/30/21 08:14 MCHC 33.0 g/dL (33.0-35.0) 10/30/21 08:14 RDW 14.1 % (11.6-16.5) 10/30/21 08:14 Plt Count 231 X10^3/uL (150.0-450.0) 10/30/21 08:14 MPV 10.1 fL (7.4-11.0) 10/30/21 08:14 Neut % (Auto) 75.6 % (42.0-75.0) H 10/30/21 08:14 Lymph % (Auto) 10.8 % (21.0-51.0) L 10/30/21 08:14 [place] % (Auto) 10.4 % (0.0-13.0) 10/30/21 08:14 Eos % (Auto) 2.3 % (0.9-2.9) 10/30/21 08:14 Baso % (Auto) 0.9 % (0.2-1.0) 10/30/21 08:14 Neut # (Auto) 7.1 x10^3/uL (2.2-4.8) H 10/30/21 08:14 Lymph # (Auto) 1.0 X10^3/uL (1.3-2.9) L 10/30/21 08:14 [place] # (Auto) 1.0 x10^3/uL (0.3-0.8) H 10/30/21 08:14 Eos # (Auto) 0.2 x10^3/uL (0.0-0.2) 10/30/21 08:14 Baso # (Auto) 0.1 X10^3/uL (0.0-0.1) 10/30/21 08:14 Absolute Nucleated RBC 0.0 /100WBC 10/30/21 08:14 PT 15.8 SECONDS (11.8-14.3) 10/30/21 08:14 INR Target Range - 10/30/21 08:14 INR 1.30 (0.8-1.3) 10/30/21 08:14 APTT 32.9 SECONDS (22.9-36.5) 10/30/21 08:14 PTT Comment - 10/30/21 08:14 D-Dimer 3.40 ug/ml (0.0-0.57) H 10/30/21 08:14 Sample Site Rr 10/30/21 08:09 ABG pH 7.340 (7.35-7.45) L 10/30/21 08:09 ABG pCO2 51.0 mmHg (35.0-45.0) H* 10/30/21 08:09 ABG pO2 51.0 mmHg (80.0-100.0) L 10/30/21 08:09 ABG HCO3 27.5 mmol/L (22-26) H 10/30/21 08:09 ABG O2 Saturation 83.0 % (90-100) L* 10/30/21 08:09 ABG Base Excess 1.0 mmol/L (-2.0-2.0) 10/30/21 08:09 Moshe Test Pos 10/30/21 08:09 A-a Gradient 35.0 mmHg 10/30/21 08:09 FiO2 21.0 10/30/21 08:09 Blood Gas Comments Shannan well 10/30/21 08:09 Sodium 136 mmol/L (136-145) 10/30/21 08:14 Corrected Sodium 136 mmol/L (136-145) 10/30/21 08:14 Potassium 4.9 mmol/L (3.5-5.1) 10/30/21 08:14 Chloride 102 mmol/L (98-107) 10/30/21 08:14 Carbon Dioxide 29.2 mmol/L (21-32) 10/30/21 08:14 BUN 26 mg/dL (7-18) H 10/30/21 08:14 Creatinine 1.55 mg/dL (0.70-1.30) H 10/30/21 08:14 Est GFR (MDRD) Af Amer 57 (>60) L 10/30/21 08:14 Est GFR (MDRD) Non-Af 47 (>60) L 10/30/21 08:14 Glucose 113 mg/dL (65-99) H 10/30/21 08:14 Calcium 8.6 mg/dL (8.5-10.1) 10/30/21 08:14 Corrected Calcium 9.4 mg/dL (8.5-10.1) 10/30/21 08:14 Magnesium 2.6 mg/dL (1.7-2.9) 10/30/21 08:14 Total Bilirubin 0.50 mg/dL (0.2-1.0) 10/30/21 08:14 AST 20 Units/L (15-37) 10/30/21 08:14 ALT 20 Units/L (12-78) 10/30/21 08:14 Alkaline Phosphatase 869 Units/L (46-116) H 10/30/21 08:14 Creatine Kinase 23 Units/L (39-308) L 10/30/21 08:14 Troponin I High Sens 54.1 ng/L (4.0-60.0) 10/30/21 08:14 Total Protein 6.8 g/dL (6.4-8.2) 10/30/21 08:14 Albumin 3.0 g/dL (3.4-5.0) L 10/30/21 08:14 Globulin 3.8 g/dL (2.5-4.5) 10/30/21 08:14 Albumin/Globulin Ratio 0.8 Ratio (1.1-2.1) L 10/30/21 08:14 XRAY XRAY Interpreted by: Self X-ray Results: CXR: mild cardiomegaly with vascular congestion. Radiology report is pending. EKG Rate: 115 [place]: RAD Rhythm: ST Block: None Hypertrophy: LAE ST: Normal Opioid Opioid Risk Tool Age (Valerio box if 16-45): No History of Preadolescent Sexual Abuse: No Total: 0 Total Score Risk Category: Low Risk Copyright: Duglas VALENTIN predicting aberrant behaviors Discharge Plan Diagnosis Discharge Problem: Acute exacerbation of chronic obstructive pulmonary disease (COPD), Congestive heart failure (CHF), D-dimer, elevated, Prostate cancer metastatic to bone Discharge Plan Patient Disposition: 09 ADMITTED INPATIENT Condition: Stable Prescriptions: No Action atorvastatin 80 mg tablet 40 mg PO HS aspirin [Thelma Low Dose Aspirin] 81 mg Tablet,Delayed Release (Dr/Ec) 1 tab PO DAILY prochlorperazine maleate 10 mg tablet 10 mg PO Q4-6H PRN (Reason: nausea) budesonide-formoterol [Symbicort] 160-4.5 mcg/actuation Hfa Aerosol Inhaler 1 inh INHALATION PRN PRN ondansetron 8 mg Tablet,Disintegrating 8 mg PO Q8H PRN (Reason: Nausea) Rx Instructions: TAKE ONE TABLET BY MOUTH EVERY EIGHT HOURS NEEDED FOR NAUSEA AND VOMITTING carvedilol [Coreg] 6.25 mg Tablet 6.25 mg PO BID ketorolac [Toradol] 10 mg Tablet 10 mg PO Q6H PRN tamsulosin 0.4 mg Capsule 0.4 mg PO DAILY Entresto 97-103 mg Tablet 1 tab PO BID Health Concerns: Post Hospitalization: new medications and changes needed to prevent readmission or further decline. Pt educated and given instructions on all concerns. Plan of Treatment: Continue with present treatment and follow up plan. Pt is to keep follow up appointment as instructed and take medications as ordered. Orders to Discharge Patient Discharge Orders: Transfer (Routine); Ordered 10/30/21 Ordered By: LEOPOLDO TAYLOR Follow ups/Referrals Follow ups/Referrals: JAIME DHALIWAL [Primary Care Provider] - 3 days
[2021-10-30] MEDS ORDERED: DUONEB 0.5 MG/3 MG (3 mL) NEB ONE ×2 (08:38→08:40)
[2021-10-30] MEDS ORDERED: ASPIRIN ONE (08:40)
[2021-10-30] MEDS: NITROSTAT SL PRN ×2 (08:45→08:55)
[2021-10-30 08:46] LABS: CALCIUM 8.6 mg/dL (8.5-10.1); CARBON DIOXIDE 29.2 mmol/L (21-32); COR CA(FOR HYPOALB) 9.4 mg/dL (8.5-10.1); CREATININE 1.55 mg/dL (0.70-1.30); TOTAL PROTEIN 6.8 g/dL (6.4-8.2)
[2021-10-30] MEDS ORDERED: LASIX IVP ONE ×2 (09:03→09:06)
--- NOTE | 2021-10-30 09:04 | RAD ---
HISTORYCHEST PAIN, SHORTNESS OF BREATHSTUDYCHEST, 1 [id number]/12/2022.TECHNIQUEAP view of the chestFINDINGSStatus post median sternotomy and CABG. The cardiac silhouette is normal in size. Mediastinal contours appear normal. Mild interstitial opacities bilaterally. Blunted right costophrenic sulcus with associated hazy right base opacity.IMPRESSIONSmall right pleural effusion. Associated right base opacity may represent atelectasis but pneumonia is not excluded.Known blastic metastasis.Mild interstitial opacities can be seen with mild pulmonary edema.Electronically signed by: Benjamín Rubio (Oct 30, 2021 09:03:43)
[2021-10-30] MEDS ORDERED: MORPHINE SULFATE INJ 2 MG INJ IVP ONE ×2 (09:40→09:42)
[2021-10-30] MEDS ORDERED: ZOFRAN INJ 4 MG VIAL IVP ONE (09:42)
[2021-10-30] MEDS ORDERED: MORPHINE SULFATE INJ 2 MG INJ ONE (09:43)
[2021-10-30] MEDS ORDERED: HEPARIN SODIUM IN D5W 25,000 UNITS/500 ML BAG ONE (09:43)
[2021-10-30] MEDS ORDERED: HEPARIN SODIUM INJ 5000 UNITS IVP ONE (09:43)
[2021-10-30] MEDS ORDERED: ZOFRAN INJ 4 MG VIAL ONE (09:43)
[2021-10-30] MEDS ORDERED: HEPARIN SODIUM INJ 5000 UNITS ONE ×2 (09:44→22:43)
[2021-10-30] MEDS: HEPARIN SODIUM IN D5W 25,000 UNITS/500 ML BAG IV PRN (09:53)
[2021-10-30 10:15] LABS: BILIRUBIN,URINE NEGATIVE (NEGATIVE); BLOOD/HEMOGLOBIN,URINE NEGATIVE (NEGATIVE); GLUCOSE, URINE NEGATIVE (NEGATIVE); KETONES,URINE NEGATIVE (NEGATIVE); LEUKOCYTE ESTERASE ,URINE NEGATIVE (NEGATIVE); NITRITES,URINE NEGATIVE (NEGATIVE); PROTEIN,URINE NEGATIVE (NEGATIVE); UROBILINOGEN,URINE NORMAL (NORMAL)
[2021-10-30 10:23] LABS: APPEARANCE,URINE CLEAR (CLEAR); COLOR,URINE STRAW (YELLOW)
[2021-10-30] MEDS ORDERED: COMPAZINE PO PRN (10:44)
[2021-10-30] MEDS ORDERED: ATIVAN TAB 1 MG PO PRN (10:44)
[2021-10-30] MEDS: DUONEB 0.5 MG/3 MG (3 mL) NEB SCH ×3 (13:36→20:56)
[2021-10-30] MEDS ORDERED: SOLU-Medrol 125 MG VIAL IVP ONE (17:09)
[2021-10-30] MEDS ORDERED: ROCEPHIN 1 GRAM IV PREMIX 1 G/50 ML IV.SOLN. IV SCH (18:00)
[2021-10-30] MEDS ORDERED: NS 100 ML IV 100 ML ONE (20:03)
[2021-10-30] MEDS: LIPITOR TAB 40 MG PO SCH (20:26)
[2021-10-30] MEDS: COREG TAB 6.25 MG PO SCH (20:26)
[2021-10-30] MEDS: ZOFRAN INJ 4 MG VIAL IVP PRN (20:30)
[2021-10-30] MEDS: MORPHINE SULFATE INJ 2 MG INJ IVP PRN (20:31)
[2021-10-30] MEDS: VIBRAMYCIN 100 MG in D5W 250 ML IV 250 ML IV SCH (20:32)
[2021-10-30] MEDS: ENTRESTO 24/26 MG TAB PO SCH (20:39)
[2021-10-30] MEDS: PULMICORT NEB TX 0.5 MG NEB SCH (20:56)
[2021-10-30] MEDS: MUCOMYST 20% 200 MG/ML NEB SCH (20:56)
[2021-10-30] MEDS: SOLU-Medrol 40 MG VIAL IVP SCH (21:04)
[2021-10-30] MEDS ORDERED: HEPARIN SODIUM INJ 5000 UNITS IVP PRN (22:36)
[2021-10-31] MEDS: ZOFRAN INJ 4 MG VIAL IVP PRN (00:09)
[2021-10-31] MEDS: MORPHINE SULFATE INJ 2 MG INJ IVP PRN ×3 (00:10→15:24)
[2021-10-31] MEDS: DUONEB 0.5 MG/3 MG (3 mL) NEB SCH ×6 (01:10→20:48)
[2021-10-31 05:00] LABS: BASOPHILS % (AUTO) 0.1 % (0.2-1.0); EOSINOPHILS % (AUTO) 0.2 % (0.9-2.9); HEMATOCRIT 34.1 % (42.0-54.0); HEMOGLOBIN 11.2 g/dL (13.5-18.0); LYMPHOCYTES # (AUTO) 0.3 X10^3/uL (1.3-2.9); MEAN CORPUSCULAR HEMOGLOBIN 28.5 pg (27.0-34.0); MEAN CORPUSCULAR HGB CONC 32.7 g/dL (33.0-35.0); MEAN CORPUSCULAR VOLUME 87.1 fL (80.0-100.0); MEAN PLATELET VOLUME 10.6 fL (7.4-11.0); MONOCYTES # (AUTO) 0.1 x10^3/uL (0.3-0.8); MONOCYTES % (AUTO) 1.2 % (0.0-13.0); NEUTROPHILS # (AUTO) 4.8 x10^3/uL (2.2-4.8); NEUTROPHILS % (AUTO) 93.5 % (42.0-75.0); RED BLOOD COUNT 3.92 X10^6/uL (4.7-6.0); RED CELL DISTRIBUTION WIDTH 14.3 % (11.6-16.5); WHITE BLOOD COUNT 5.1 X10^3/uL (3.6-10.0)
[2021-10-31] MEDS: SOLU-Medrol 40 MG VIAL IVP SCH ×3 (05:03→21:37)
[2021-10-31 05:15] LABS: ALANINE AMINOTRANSFERASE 17 Units/L (12-78); ALBUMIN 2.5 g/dL (3.4-5.0); ALKALINE PHOSPHATASE 790 Units/L (46-116); ASPARTATE AMINO TRANSFERASE 17 Units/L (15-37); BLOOD UREA NITROGEN 26 mg/dL (7-18); CARBON DIOXIDE 27.8 mmol/L (21-32); CHLORIDE 102 mmol/L (98-107); COR CA(FOR HYPOALB) 9.2 mg/dL (8.5-10.1); COR NA(FOR HYPERGLY) 138 mmol/L (136-145); CREATININE 1.44 mg/dL (0.70-1.30); SODIUM 137 mmol/L (136-145); eGFR NON BLACK RACES 51 (>60)
[2021-10-31 05:26] LABS: BAND NEUTROPHILS % 2 % (0-10); PLATELET MORPHOLOGY COMMENT NORMAL (NORMAL)
--- NOTE | 2021-10-31 05:58 | RAD ---
PROCEDURE: Chest X-ray 1 View .HISTORY: Congestive heart failure.TECHNIQUE: AP portable done at 5:06 a.m..COMPARISON: 10/30/2021.TECHNICAL QUALITY: Satisfactory .FINDINGS:Normal size heart .Mediastinum and hilar regions show no masses or lymphadenopathy .Normal central vascularity .Continued pneumonia right base is unchanged. Interval increase in consolidation right upper lobe. Unchanged consolidation left base. No pleural fluid or pneumothorax.Previous sternotomy.IMPRESSION:1. Unchanged pneumonia lung bases.2. Increased consolidation right upper lobe.Electronically signed by: Russ Mauricio (Oct 31, 2021 05:56:47)
[2021-10-31] MEDS: MUCOMYST 20% 200 MG/ML NEB SCH ×2 (08:14→20:48)
[2021-10-31] MEDS: PULMICORT NEB TX 0.5 MG NEB SCH ×2 (08:14→20:49)
--- NOTE | 2021-10-31 08:17 | NM ---
HISTORYELEVATED D-DIMER 3.40, CHEST PAIN, SOBSTUDYPERFUSION LUNG SCAN ONLYCOMPARISON[Chest radiograph from same day.]TECHNIQUE[Nuclear medicine perfusion scintigraphy. [5.6] mCi of technetium 99 M maa was administered.]FINDINGS[There is a large perfusion defect in the right middle lobe corresponding to airspace opacity seen on radiograph. There is a large filling defect in the left lower lobe with airspace opacity also seen on radiograph. On the left lateral image there is a large filling defect in the left upper lobe without definite airspace opacity seen in this location on radiograph. Chest radiograph from same day showed bibasilar airspace opacities and right upper lobe airspace opacities.]IMPRESSION[Low/intermediate probability] for pulmonary emboli based on modified PIOPED criteria.Electronically signed by: Benjamín Rubio (Oct 31, 2021 08:16:12)
[2021-10-31 08:39] VITALS: BMI 24.3
[2021-10-31] MEDS: COREG TAB 6.25 MG PO SCH ×2 (08:55→21:37)
[2021-10-31] MEDS: ASPIRIN EC 81 MG PO SCH (08:55)
[2021-10-31] MEDS: PROTONIX TAB 40 MG PO SCH (08:56)
[2021-10-31] MEDS: LASIX IVP SCH (08:56)
[2021-10-31] MEDS: FLOMAX PO SCH (08:56)
[2021-10-31] MEDS: ENTRESTO 24/26 MG TAB PO SCH ×2 (08:56→21:35)
[2021-10-31] MEDS: ROCEPHIN VIAL 1 GRAM 1 G in NS 100 ML IV 100 ML IV SCH (08:57)
--- NOTE | 2021-10-31 09:36 | DR.H&P ---
H&P History & Physical for Day of: H&P Date: 10/30/21 Chief Complaint Chief Complaint: Shortness of breath Allergies Allergies Allergy/AdvReac Type Severity Reaction Status Date / Time Penicillins Allergy Verified 07/20/20 19:17 History of Present Illness History of Present Illness: This is a 71-year-old white male well-known to me. He came to the emergency department this morning after waking up with severe substernal pressure and shortness of breath. The pain was nonradiating but he felt like he could not catch his breath and will get enough oxygen. He was anxious from this so his daughter brought him to the emergency department for further work-up and evaluation. 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 He also has known coronary artery disease status post stenting and coronary artery bypass grafting as well as COPD. His chest x-ray showed a right lung base density consistent with possible developing pneumonia and also some increased vascular markings consistent with congestive heart failure. He has been that is noted to be elevated greater than 1500, and in that the patient does have a history of having elevated BNP's around that range. The patient was also hypoxic coming in the emergency department with O2 sat of 85-86% on room air. Given the patient's hypoxia and chest x-ray we elected to go ahead admit him to the ICU and treating with IV Rocephin and Vibramycin along with IV Solu-Medrol and jet nebs. Past Medical History Past Medical History: Anxiety, CHF, COPD, Coronary Artery Disease, Dyslipidemia, Hypertension and [place] Past Surgical History Surgical History: Appendectomy and Other Additional Surgical History: Angioplasty on legs, Left AKA Family History Family Medical History: Diabetes Mellitus, Cancer, [place] and Hypertension Social History Does patient currently use any type of tobacco product: No Have you used tobacco products in the last 12 months: Yes Type of Tobacco Use: Cigarettes Does any household member use tobacco: No Alcohol Use: None Drug Use: None Medications Home Medications: Penicillins Allergy (Verified 07/20/20 19:17) CONTINUE taking the following medications prochlorperazine maleate 10 mg tablet 10 mg PO Q4-6H PRN nausea 10/30/21 [History] Labs Result Diagrams: 10/31/21 04:44 10/31/21 04:44 Labs: Laboratory WBC 5.1 X10^3/uL (3.6-10.0) 10/31/21 04:44 RBC 3.92 X10^6/uL (4.7-6.0) L 10/31/21 04:44 Hgb 11.2 g/dL (13.5-18.0) L 10/31/21 04:44 Hct 34.1 % (42.0-54.0) L 10/31/21 04:44 MCV 87.1 fL (80.0-100.0) 10/31/21 04:44 MCH 28.5 pg (27.0-34.0) 10/31/21 04:44 MCHC 32.7 g/dL (33.0-35.0) L 10/31/21 04:44 RDW 14.3 % (11.6-16.5) 10/31/21 04:44 Plt Count 185 X10^3/uL (150.0-450.0) 10/31/21 04:44 Plt Count Comment Adequate (ADEQUATE) 10/31/21 04:44 MPV 10.6 fL (7.4-11.0) 10/31/21 04:44 Neut % (Auto) 93.5 % (42.0-75.0) H 10/31/21 04:44 Lymph % (Auto) 5.0 % (21.0-51.0) L 10/31/21 04:44 [place] % (Auto) 1.2 % (0.0-13.0) 10/31/21 04:44 Eos % (Auto) 0.2 % (0.9-2.9) L 10/31/21 04:44 Baso % (Auto) 0.1 % (0.2-1.0) L 10/31/21 04:44 Neut # (Auto) 4.8 x10^3/uL (2.2-4.8) 10/31/21 04:44 Lymph # (Auto) 0.3 X10^3/uL (1.3-2.9) L 10/31/21 04:44 [place] # (Auto) 0.1 x10^3/uL (0.3-0.8) L 10/31/21 04:44 Eos # (Auto) 0.0 x10^3/uL (0.0-0.2) 10/31/21 04:44 Baso # (Auto) 0.0 X10^3/uL (0.0-0.1) 10/31/21 04:44 Absolute Nucleated RBC 0.1 /100WBC 10/31/21 04:44 Total Counted 100 10/31/21 04:44 Neutrophils % (Manual) 95 % (39-76) H 10/31/21 04:44 Band Neutrophils % 2 % (0-10) 10/31/21 04:44 Lymphocytes % (Manual) 2 % (13-43) L 10/31/21 04:44 Monocytes % (Manual) 1 % (4-9) L 10/31/21 04:44 Plt Morphology Comment Normal (NORMAL) 10/31/21 04:44 RBC Morphology Normal (NORMAL) 10/31/21 04:44 PT 15.8 SECONDS (11.8-14.3) 10/30/21 08:14 INR Target Range - 10/30/21 08:14 INR 1.30 (0.8-1.3) 10/30/21 08:14 APTT 87.1 SECONDS (22.9-36.5) H 10/31/21 04:44 PTT Comment - 10/31/21 04:44 D-Dimer 3.40 ug/ml (0.0-0.57) H 10/30/21 08:14 Sample Site Rr 10/30/21 08:09 ABG pH 7.340 (7.35-7.45) L 10/30/21 08:09 ABG pCO2 51.0 mmHg (35.0-45.0) H* 10/30/21 08:09 ABG pO2 51.0 mmHg (80.0-100.0) L 10/30/21 08:09 ABG HCO3 27.5 mmol/L (22-26) H 10/30/21 08:09 ABG O2 Saturation 83.0 % (90-100) L* 10/30/21 08:09 ABG Base Excess 1.0 mmol/L (-2.0-2.0) 10/30/21 08:09 Moshe Test Pos 10/30/21 08:09 A-a Gradient 35.0 mmHg 10/30/21 08:09 FiO2 21.0 10/30/21 08:09 Blood Gas Comments Shannan well 10/30/21 08:09 Sodium 137 mmol/L (136-145) 10/31/21 04:44 Corrected Sodium 138 mmol/L (136-145) 10/31/21 04:44 Potassium 5.1 mmol/L (3.5-5.1) 10/31/21 04:44 Chloride 102 mmol/L (98-107) 10/31/21 04:44 Carbon Dioxide 27.8 mmol/L (21-32) 10/31/21 04:44 BUN 26 mg/dL (7-18) H 10/31/21 04:44 Creatinine 1.44 mg/dL (0.70-1.30) H 10/31/21 04:44 Est GFR (MDRD) Af Amer > 60 (>60) 10/31/21 04:44 Est GFR (MDRD) Non-Af 51 (>60) L 10/31/21 04:44 Glucose 156 mg/dL (65-99) H 10/31/21 04:44 POC Glucose (mg/dL) 152 mg/dL (65-99) H 10/31/21 04:55 Calcium 8.0 mg/dL (8.5-10.1) L 10/31/21 04:44 Corrected Calcium 9.2 mg/dL (8.5-10.1) 10/31/21 04:44 Magnesium 2.6 mg/dL (1.7-2.9) 10/30/21 08:14 Total Bilirubin 0.30 mg/dL (0.2-1.0) 10/31/21 04:44 AST 17 Units/L (15-37) 10/31/21 04:44 ALT 17 Units/L (12-78) 10/31/21 04:44 Alkaline Phosphatase 790 Units/L (46-116) H 10/31/21 04:44 Creatine Kinase 19 Units/L (39-308) L 10/30/21 20:50 Troponin I High Sens 51.6 ng/L (4.0-60.0) 10/30/21 20:50 B-Natriuretic Peptide 1870 pg/mL (0-79) H* 10/31/21 04:44 Total Protein 6.0 g/dL (6.4-8.2) L 10/31/21 04:44 Albumin 2.5 g/dL (3.4-5.0) L 10/31/21 04:44 Globulin 3.5 g/dL (2.5-4.5) 10/31/21 04:44 Albumin/Globulin Ratio 0.7 Ratio (1.1-2.1) L 10/31/21 04:44 Specimen Type Catherized urine 10/30/21 10:05 Urine Color Straw (YELLOW) 10/30/21 10:05 Urine Appearance Clear (CLEAR) 10/30/21 10:05 Urine pH 6.0 (5.0 - 8.0) 10/30/21 10:05 Ur Specific [place] 1.015 (1.000-1.030) 10/30/21 10:05 Urine Protein Negative (NEGATIVE) 10/30/21 10:05 Urine Glucose (UA) Negative (NEGATIVE) 10/30/21 10:05 Urine Ketones Negative (NEGATIVE) 10/30/21 10:05 Urine Blood Negative (NEGATIVE) 10/30/21 10:05 Urine Nitrite Negative (NEGATIVE) 10/30/21 10:05 Urine Bilirubin Negative (NEGATIVE) 10/30/21 10:05 Urine Urobilinogen Normal (NORMAL) 10/30/21 10:05 Ur Leukocyte Esterase Negative (NEGATIVE) 10/30/21 10:05 SARS CoV-2 RNA Rapid MICHELLE Negative (NEGATIVE) 10/30/21 09:39 Review of Systems Constitutional: Weakness and Malaise Eyes: No Symptoms Reported ENT: No Symptoms Reported Respiratory: Cough, Shortness of Breath, SOB with Excertion and Wheezing Cardiovascular: Chest Pain Gastrointestinal: No Symptoms Reported Genitourinary: Retention Musculoskeletal: Back Pain Skin: No Symptoms Reported Neurological: No Symptoms Reported Physical Exam Vital Signs: Temperature 98.0 F Pulse Rate 76 Respiratory Rate 16 Blood Pressure [Right Arm] 92/60 Blood Pressure [Left Arm] 130/57 Blood Pressure 111/67 O2 Sat by Pulse Oximetry 93 Oriented: Normal, Time, Person and Place Ear: Normal Nose: Normal Throat: Normal Respiratory: Rhonchi Throughout Cardiovascular: Normal : Normal Auscultation: Bowel Sounds: Normal Palpation: Normal Tenderness: Normal Skin: Decreased [place] Musculoskeletal: Right and Back:Lumbar Psychiatric: Normal Mood Description: Anxious Affect: Normal Speech Pattern: Clear and Appropriate Assessment/Plan (1) Right lower lobe pneumonia: Status: Acute Plan: IV Rocephin and Vibramycin. Jet nebs with Xopenex and ipratropium and will add Mucomyst. (2) Hypoxia: Status: Acute Plan: O2 via nasal cannula to keep O2 sat above 94%. (3) Acute exacerbation of chronic obstructive pulmonary disease (COPD): Status: Acute Plan: Solu-Medrol 125 mg IV x1 then 60 mg IV every 8 hours thereafter. (4) Bladder cancer metastasized to bone: Status: Acute Plan: Patient is supposed to be starting chemotherapy soon by his oncologist as outpatient. Review H&P Reviewed: Yes Patient was examined?: Yes
[2021-10-31] MEDS: VIBRAMYCIN 100 MG in D5W 250 ML IV 250 ML IV SCH ×2 (10:06→21:38)
[2021-10-31] MEDS: HEPARIN SODIUM IN D5W 25,000 UNITS/500 ML BAG IV PRN (11:22)
--- NOTE | 2021-10-31 13:12 | PCM.PROG ---
Progress Note Progress Note for Day of Date of Exam: 10/31/21 Subjective Subjective: The patient is sitting up in bed this morning. He reports his breathing is much improved since coming in yesterday morning. He does not feel like he has as much tightness in his chest and his chest pain has resolved. He is satting 96% on 2 L this morning when I was examining him. He has decreased breath sounds bilaterally but improved since yesterday morning. He has no wheezing at this time. 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 I will change him to oxycodone 15 mg every 4 hours as needed pain this is what he takes at home but at a 7.5 mg dose at home Past Medical Family Social History Allergies: Allergies Penicillins Allergy (Verified 07/20/20 19:17) Review of Systems ROS: No change since H&P Vital Signs and I&O's Vital Signs: Temperature 98.0 F Pulse Rate 78 Respiratory Rate 15 Blood Pressure [Right Arm] 92/60 Blood Pressure [Left Arm] 130/57 Blood Pressure 121/57 O2 Sat by Pulse Oximetry 92 Intake and Output: Intake & Output 10/29/21 10/30/21 10/31/21 11/01/21 11:59 11:59 11:59 11:59 Intake Total 1432 / 1432 Output Total 1600 / 1600 Balance -168 / -168 Physical Exam Oriented: Normal, Time, Person and Place Ear: Normal Nose: Normal Throat: Normal Respiratory: Diminished Cardiovascular: Normal : Normal Auscultation: Bowel Sounds: Normal Tenderness: Normal Skin: Decreased Turgur Musculoskeletal: Right and Back:Lumbar Psychiatric: Normal Mood Description: Anxious Affect: Normal Speech Pattern: Clear and Appropriate Laboratory and Diagnostics Result Diagrams: 10/31/21 04:44 10/31/21 04:44 Labs: Laboratory WBC 5.1 X10^3/uL (3.6-10.0) 10/31/21 04:44 RBC 3.92 X10^6/uL (4.7-6.0) L 10/31/21 04:44 Hgb 11.2 g/dL (13.5-18.0) L 10/31/21 04:44 Hct 34.1 % (42.0-54.0) L 10/31/21 04:44 MCV 87.1 fL (80.0-100.0) 10/31/21 04:44 MCH 28.5 pg (27.0-34.0) 10/31/21 04:44 MCHC 32.7 g/dL (33.0-35.0) L 10/31/21 04:44 RDW 14.3 % (11.6-16.5) 10/31/21 04:44 Plt Count 185 X10^3/uL (150.0-450.0) 10/31/21 04:44 Plt Count Comment Adequate (ADEQUATE) 10/31/21 04:44 MPV 10.6 fL (7.4-11.0) 10/31/21 04:44 Neut % (Auto) 93.5 % (42.0-75.0) H 10/31/21 04:44 Lymph % (Auto) 5.0 % (21.0-51.0) L 10/31/21 04:44 [place] % (Auto) 1.2 % (0.0-13.0) 10/31/21 04:44 Eos % (Auto) 0.2 % (0.9-2.9) L 10/31/21 04:44 Baso % (Auto) 0.1 % (0.2-1.0) L 10/31/21 04:44 Neut # (Auto) 4.8 x10^3/uL (2.2-4.8) 10/31/21 04:44 Lymph # (Auto) 0.3 X10^3/uL (1.3-2.9) L 10/31/21 04:44 [place] # (Auto) 0.1 x10^3/uL (0.3-0.8) L 10/31/21 04:44 Eos # (Auto) 0.0 x10^3/uL (0.0-0.2) 10/31/21 04:44 Baso # (Auto) 0.0 X10^3/uL (0.0-0.1) 10/31/21 04:44 Absolute Nucleated RBC 0.1 /100WBC 10/31/21 04:44 Total Counted 100 10/31/21 04:44 Neutrophils % (Manual) 95 % (39-76) H 10/31/21 04:44 Band Neutrophils % 2 % (0-10) 10/31/21 04:44 Lymphocytes % (Manual) 2 % (13-43) L 10/31/21 04:44 Monocytes % (Manual) 1 % (4-9) L 10/31/21 04:44 Plt Morphology Comment Normal (NORMAL) 10/31/21 04:44 RBC Morphology Normal (NORMAL) 10/31/21 04:44 PT 15.8 SECONDS (11.8-14.3) 10/30/21 08:14 INR Target Range - 10/30/21 08:14 INR 1.30 (0.8-1.3) 10/30/21 08:14 APTT 74.0 SECONDS (22.9-36.5) H 10/31/21 11:38 PTT Comment - 10/31/21 11:38 D-Dimer 3.40 ug/ml (0.0-0.57) H 10/30/21 08:14 Sample Site Rr 10/30/21 08:09 ABG pH 7.340 (7.35-7.45) L 10/30/21 08:09 ABG pCO2 51.0 mmHg (35.0-45.0) H* 10/30/21 08:09 ABG pO2 51.0 mmHg (80.0-100.0) L 10/30/21 08:09 ABG HCO3 27.5 mmol/L (22-26) H 10/30/21 08:09 ABG O2 Saturation 83.0 % (90-100) L* 10/30/21 08:09 ABG Base Excess 1.0 mmol/L (-2.0-2.0) 10/30/21 08:09 Moshe Test Pos 10/30/21 08:09 A-a Gradient 35.0 mmHg 10/30/21 08:09 FiO2 21.0 10/30/21 08:09 Blood Gas Comments Shannan well 10/30/21 08:09 Sodium 137 mmol/L (136-145) 10/31/21 04:44 Corrected Sodium 138 mmol/L (136-145) 10/31/21 04:44 Potassium 5.1 mmol/L (3.5-5.1) 10/31/21 04:44 Chloride 102 mmol/L (98-107) 10/31/21 04:44 Carbon Dioxide 27.8 mmol/L (21-32) 10/31/21 04:44 BUN 26 mg/dL (7-18) H 10/31/21 04:44 Creatinine 1.44 mg/dL (0.70-1.30) H 10/31/21 04:44 Est GFR (MDRD) Af Amer > 60 (>60) 10/31/21 04:44 Est GFR (MDRD) Non-Af 51 (>60) L 10/31/21 04:44 Glucose 156 mg/dL (65-99) H 10/31/21 04:44 POC Glucose (mg/dL) 203 mg/dL (65-99) H 10/31/21 11:50 Calcium 8.0 mg/dL (8.5-10.1) L 10/31/21 04:44 Corrected Calcium 9.2 mg/dL (8.5-10.1) 10/31/21 04:44 Magnesium 2.6 mg/dL (1.7-2.9) 10/30/21 08:14 Total Bilirubin 0.30 mg/dL (0.2-1.0) 10/31/21 04:44 AST 17 Units/L (15-37) 10/31/21 04:44 ALT 17 Units/L (12-78) 10/31/21 04:44 Alkaline Phosphatase 790 Units/L (46-116) H 10/31/21 04:44 Creatine Kinase 19 Units/L (39-308) L 10/30/21 20:50 Troponin I High Sens 51.6 ng/L (4.0-60.0) 10/30/21 20:50 B-Natriuretic Peptide 1870 pg/mL (0-79) H* 10/31/21 04:44 Total Protein 6.0 g/dL (6.4-8.2) L 10/31/21 04:44 Albumin 2.5 g/dL (3.4-5.0) L 10/31/21 04:44 Globulin 3.5 g/dL (2.5-4.5) 10/31/21 04:44 Albumin/Globulin Ratio 0.7 Ratio (1.1-2.1) L 10/31/21 04:44 Specimen Type Catherized urine 10/30/21 10:05 Urine Color Straw (YELLOW) 10/30/21 10:05 Urine Appearance Clear (CLEAR) 10/30/21 10:05 Urine pH 6.0 (5.0 - 8.0) 10/30/21 10:05 Ur Specific [place] 1.015 (1.000-1.030) 10/30/21 10:05 Urine Protein Negative (NEGATIVE) 10/30/21 10:05 Urine Glucose (UA) Negative (NEGATIVE) 10/30/21 10:05 Urine Ketones Negative (NEGATIVE) 10/30/21 10:05 Urine Blood Negative (NEGATIVE) 10/30/21 10:05 Urine Nitrite Negative (NEGATIVE) 10/30/21 10:05 Urine Bilirubin Negative (NEGATIVE) 10/30/21 10:05 Urine Urobilinogen Normal (NORMAL) 10/30/21 10:05 Ur Leukocyte Esterase Negative (NEGATIVE) 10/30/21 10:05 SARS CoV-2 RNA Rapid MICHELLE Negative (NEGATIVE) 10/30/21 09:39 Radiology Reviewed: Yes Plan (1) Right lower lobe pneumonia: Status: Acute Plan: IV Rocephin and Vibramycin. Jet nebs with Xopenex and ipratropium and will add Mucomyst. (2) Hypoxia: Status: Acute Plan: O2 via nasal cannula to keep O2 sat above 94%. (3) Acute exacerbation of chronic obstructive pulmonary disease (COPD): Status: Acute Plan: Solu-Medrol 125 mg IV x1 then 60 mg IV every 8 hours thereafter. (4) Bladder cancer metastasized to bone: Status: Acute Narrative Support Text: The patient's pain is not controlled this morning with the morphine. He reports it wears off 15 to 30 minutes after taking it. He wants to restart his oxycodone which he normally takes at home for his pain control from his bone metastasis from his bladder and left ureter. Plan: Patient is supposed to be starting chemotherapy soon by his oncologist as outpatient. I will add back patient's oxycodone for metastatic bone cancer pain.
[2021-10-31] MEDS: LIPITOR TAB 40 MG PO SCH (21:36)
[2021-10-31] MEDS: ROXICODONE TAB 15 MG PO PRN (21:36)
[2021-10-31] MEDS ORDERED: NS 100 ML IV 100 ML ONE (22:28)
[2021-11-01] MEDS: DUONEB 0.5 MG/3 MG (3 mL) NEB SCH ×3 (00:40→08:04)
[2021-11-01] MEDS: ROXICODONE TAB 15 MG PO PRN ×2 (02:29→06:31)
[2021-11-01 05:34] LABS: BASOPHILS % (AUTO) 0.3 % (0.2-1.0); HEMATOCRIT 32.5 % (42.0-54.0); HEMOGLOBIN 11.1 g/dL (13.5-18.0); LYMPHOCYTES # (AUTO) 0.3 X10^3/uL (1.3-2.9); LYMPHOCYTES % (AUTO) 2.6 % (21.0-51.0); MEAN CORPUSCULAR HEMOGLOBIN 29.6 pg (27.0-34.0); MEAN CORPUSCULAR HGB CONC 34.1 g/dL (33.0-35.0); MEAN CORPUSCULAR VOLUME 86.8 fL (80.0-100.0); MONOCYTES # (AUTO) 0.4 x10^3/uL (0.3-0.8); MONOCYTES % (AUTO) 3.5 % (0.0-13.0); NEUTROPHILS # (AUTO) 9.7 x10^3/uL (2.2-4.8); NEUTROPHILS % (AUTO) 93.6 % (42.0-75.0); RED BLOOD COUNT 3.75 X10^6/uL (4.7-6.0); WHITE BLOOD COUNT 10.3 X10^3/uL (3.6-10.0)
[2021-11-01 05:55] LABS: ALANINE AMINOTRANSFERASE 15 Units/L (12-78); ALBUMIN 2.6 g/dL (3.4-5.0); ALKALINE PHOSPHATASE 747 Units/L (46-116); ASPARTATE AMINO TRANSFERASE 13 Units/L (15-37); BLOOD UREA NITROGEN 29 mg/dL (7-18); CALCIUM 8.2 mg/dL (8.5-10.1); CARBON DIOXIDE 27.7 mmol/L (21-32); CHLORIDE 99 mmol/L (98-107); COR CA(FOR HYPOALB) 9.3 mg/dL (8.5-10.1); COR NA(FOR HYPERGLY) 136 mmol/L (136-145); CREATININE 1.39 mg/dL (0.70-1.30); SODIUM 135 mmol/L (136-145); TOTAL PROTEIN 5.9 g/dL (6.4-8.2); eGFR NON BLACK RACES 53 (>60)
[2021-11-01 06:28] VITALS: BP 145/75
[2021-11-01] MEDS: SOLU-Medrol 40 MG VIAL IVP SCH (06:32)
[2021-11-01 06:33] LABS: BAND NEUTROPHILS % 2 % (0-10); HYPOCHROMASIA SLIGHT; PLATELET MORPHOLOGY COMMENT NORMAL (NORMAL)
[2021-11-01] MEDS ORDERED: HEPARIN SODIUM INJ 5000 UNITS IVP NR (07:11)
[2021-11-01] MEDS: FLOMAX PO SCH (08:00)
[2021-11-01] MEDS: ENTRESTO 24/26 MG TAB PO SCH (08:00)
[2021-11-01] MEDS: LASIX IVP SCH (08:00)
[2021-11-01] MEDS: COREG TAB 6.25 MG PO SCH (08:00)
[2021-11-01] MEDS: ASPIRIN EC 81 MG PO SCH (08:00)
[2021-11-01] MEDS: ROCEPHIN VIAL 1 GRAM 1 G in NS 100 ML IV 100 ML IV SCH (08:01)
[2021-11-01] MEDS: PROTONIX TAB 40 MG PO SCH (08:01)
[2021-11-01] MEDS: MUCOMYST 20% 200 MG/ML NEB SCH ×2 (08:04→08:05)
[2021-11-01] MEDS: PULMICORT NEB TX 0.5 MG NEB SCH (08:04)
[2021-11-01] MEDS: VIBRAMYCIN 100 MG in D5W 250 ML IV 250 ML IV SCH (08:54)
== END 2021-11-01 11:20 | disposition home health service (06) | DRG 194 ==
LOC: ER 08:07 → ICU 09:46
PROVIDERS: ADMIT Family Medicine; ATTEND Family Medicine
DX: I50.9 Heart failure, unspecified; R06.02 Shortness of breath; Z20.822 Contact with and (suspected) exposure to COVID-19; R79.1 Abnormal coagulation profile; R09.02 Hypoxemia; J44.1 Chronic obstructive pulmonary disease with (acute) exacerbation; C79.51 Secondary malignant neoplasm of bone; R94.31 Abnormal electrocardiogram [ECG] [EKG]; C67.9 Malignant neoplasm of bladder, unspecified; R07.89 Other chest pain; J18.8 Other pneumonia, unspecified organism

== ENCOUNTER 2021-11-09 12:09 | Inpatient (IN) ==
--- NOTE | 2021-11-09 13:01 | DR.SOBA ---
HPI Time Seen Time Seen by Provider: 11/09/21 13:00 Primary Care Physician Primary Care Physician: LATRICIA HPI Comment HPI Comment: Acccording to pts family he has hx of bladder cancer with mets to bone.has been seeing Haem/onc .was at [facility] about a month ago .Has home health .Pt was seen today by the homehealth nurse .Was noted to have noises in c hest .She was worried patient may have fluid in his lungs asked patient to be brought to [facility] by EMS Complaints Chief Complaint Doctors Comments: shortness of breath Chief Complaint:: PATIENT'S FAMILY C/O PATIENT HAS HAD DECREASED OUTPUT WITH SHORTNESS OF BREATH AND A WET COUGH. FAMILY STATES PATIENT'S HOME HEALTH NURSE COMES INTO THE HOME TODAY AND ASSESS PATIENT. SHE STATES PATIENT HAS DECREASED PEDAL PULSE TO RLE AND HIS LUNGS ARE FULL OF FLUID. COVID-19 Coronavirus risk:travel/contact w/high risk person: No Has patient experienced Coronavirus symptoms: No Coronavirus symptoms experienced: Shortness of Breath Reviewed Nurses Notes Reviewed: Yes Source History Provided: Patient and EMS Mode of Arrival Mode of Arrival: EMS Timing Onset of Chief Complaint: 11/09/21 Context Onset:: At Rest and With Light Exertion History of:: CHF Prehospital Care:: O2 PMH PMH Past Medical History: Yes Past Medical History: Anxiety, CHF, COPD, Coronary Artery Disease, Dyslipidemia, Hypertension and PA Past Surgical History: Yes Surgical History: Appendectomy and Other Past Surgical History Comment: ERICA Family History History of Family Medical Conditions: Yes Family Medical History: Diabetes Mellitus, Cancer, PA and Hypertension Social History Does any household member use tobacco: No Alcohol Use: None Do you use any recreational Drugs:: No Lives With: Family Lives Where: Home Travel Risk Coronavirus risk:travel/contact w/high risk person: No Has patient experienced Coronavirus symptoms: No Coronavirus symptoms experienced: Shortness of Breath Infectious screening In the last 2 months have you had wt loss of >10#?: NO Have you had fever, night sweats or hemotysis?: No Have you traveled outside the country in the last 6 months?: No Isolation: Standard ROS Review of Systems Constitutional: Malaise, Weakness and Fatigue ENTM: No Symptoms Reported Respiratoy: Non-Productive Cough and Short of Breath Cardiovascular: No Symptoms Reported Gastrointestinal/Abdominal: No Symptoms Reported Genitourinary: No Symptoms Reported Neurological: No Symptoms Reported Musculoskeletal: No Symptoms Reported Integumentary: No Symptoms Reported Hematologic/Lymphatic: No Symptoms Reported Endocrine: No Symptoms Reported and Decreased Appetite Psychiatric: No Symptoms Reported PE Vital Signs Vitals: Temperature 98.6 F Pulse Rate 90 Respiratory Rate 33 Blood Pressure [Right Arm] 92/60 Blood Pressure [Left Arm] 130/57 Blood Pressure 136/64 O2 Sat by Pulse Oximetry 97 General General Appearance: Lethargic Head Head Exam: Other ENT ENT Exam: Mucous Membranes Dry and Other (pt breathes through mouth) Neck Neck Exam: Normal Inspection Chest Chest Inspection: Normal Inspection and Symmetric Chest Wall Rise Respiratory Respiratory Exam: Bilateral: Rales Cardiovascular Cardiovascular Exam: +S1 and +S2 Abdominal Exam Abdominal Exam: Normal Bowel Sounds and Soft Neurologic Neurological Exam: Alert and Other (responds to verbal and pain stimuli ) Psychiatric Psychiatric Exam: Flat Affect Skin Skin Exam: Normal Color MDM Differential Diagnosis Differential Diagnosis: Anxiety, CHF and Mycardial Infarction Differential Diagnosis Comment:: pneumonia,hx of bladder malignancy COURSE Treatment Treatment: labs cxr IV lasoix ativan ROR Labs Reviewed Laboratory Results Reviewed?: Yes Result Diagrams: 11/09/21 12:15 11/09/21 12:15 Laboratory: WBC 12.1 X10^3/uL (3.6-10.0) H 11/09/21 12:15 RBC 4.07 X10^6/uL (4.7-6.0) L 11/09/21 12:15 Hgb 11.6 g/dL (13.5-18.0) L 11/09/21 12:15 Hct 36.3 % (42.0-54.0) L 11/09/21 12:15 MCV 89.3 fL (80.0-100.0) 11/09/21 12:15 MCH 28.6 pg (27.0-34.0) 11/09/21 12:15 MCHC 32.0 g/dL (33.0-35.0) L 11/09/21 12:15 RDW 14.7 % (11.6-16.5) 11/09/21 12:15 Plt Count 222 X10^3/uL (150.0-450.0) 11/09/21 12:15 Plt Count Comment Adequate (ADEQUATE) 11/09/21 12:15 MPV 10.5 fL (7.4-11.0) 11/09/21 12:15 Neut % (Auto) 92.4 % (42.0-75.0) H 11/09/21 12:15 Lymph % (Auto) 3.1 % (21.0-51.0) L 11/09/21 12:15 [place] % (Auto) 4.0 % (0.0-13.0) 11/09/21 12:15 Eos % (Auto) 0.0 % (0.9-2.9) L 11/09/21 12:15 Baso % (Auto) 0.5 % (0.2-1.0) 11/09/21 12:15 Neut # (Auto) 11.2 x10^3/uL (2.2-4.8) H 11/09/21 12:15 Lymph # (Auto) 0.4 X10^3/uL (1.3-2.9) L 11/09/21 12:15 [place] # (Auto) 0.5 x10^3/uL (0.3-0.8) 11/09/21 12:15 Eos # (Auto) 0.0 x10^3/uL (0.0-0.2) 11/09/21 12:15 Baso # (Auto) 0.1 X10^3/uL (0.0-0.1) 11/09/21 12:15 Absolute Nucleated RBC 0.1 /100WBC 11/09/21 12:15 Total Counted 100 11/09/21 12:15 Neutrophils % (Manual) 92 % (39-76) H 11/09/21 12:15 Lymphocytes % (Manual) 4 % (13-43) L 11/09/21 12:15 Monocytes % (Manual) 4 % (4-9) 11/09/21 12:15 Plt Morphology Comment Normal (NORMAL) 11/09/21 12:15 RBC Morphology Normal (NORMAL) 11/09/21 12:15 D-Dimer 5.21 ug/ml (0.0-0.57) H 11/09/21 12:15 Sodium 133 mmol/L (136-145) L 11/09/21 12:15 Corrected Sodium TNP 11/09/21 12:15 Potassium 5.6 mmol/L (3.5-5.1) H 11/09/21 12:15 Chloride 101 mmol/L (98-107) 11/09/21 12:15 Carbon Dioxide 27.5 mmol/L (21-32) 11/09/21 12:15 BUN 51 mg/dL (7-18) H 11/09/21 12:15 Creatinine 1.57 mg/dL (0.70-1.30) H 11/09/21 12:15 Est GFR (MDRD) Af Amer 56 (>60) L 11/09/21 12:15 Est GFR (MDRD) Non-Af 46 (>60) L 11/09/21 12:15 Glucose 108 mg/dL (65-99) H 11/09/21 12:15 Calcium 6.4 mg/dL (8.5-10.1) L 11/09/21 12:15 Corrected Calcium 7.4 mg/dL (8.5-10.1) L 11/09/21 12:15 Total Bilirubin 0.50 mg/dL (0.2-1.0) 11/09/21 12:15 AST 47 Units/L (15-37) H 11/09/21 12:15 ALT 57 Units/L (12-78) 11/09/21 12:15 Alkaline Phosphatase 871 Units/L (46-116) H 11/09/21 12:15 Creatine Kinase 30 Units/L (39-308) L 11/09/21 12:15 Troponin I High Sens 617.5 ng/L (4.0-60.0) H* 11/09/21 12:15 B-Natriuretic Peptide 1620 pg/mL (0-79) H* 11/09/21 12:15 Total Protein 6.3 g/dL (6.4-8.2) L 11/09/21 12:15 Albumin 2.8 g/dL (3.4-5.0) L 11/09/21 12:15 Globulin 3.5 g/dL (2.5-4.5) 11/09/21 12:15 Albumin/Globulin Ratio 0.8 Ratio (1.1-2.1) L 11/09/21 12:15 Specimen Type Catherized urine 11/09/21 14:50 Urine Color Dark yellow (YELLOW) 11/09/21 14:50 Urine Appearance Slightly hazy (CLEAR) 11/09/21 14:50 Urine pH 6.0 (5.0 - 8.0) 11/09/21 14:50 Ur Specific [place] 1.030 (1.000-1.030) 11/09/21 14:50 Urine Protein 2+ (NEGATIVE) 11/09/21 14:50 Urine Glucose (UA) Negative (NEGATIVE) 11/09/21 14:50 Urine Ketones Negative (NEGATIVE) 11/09/21 14:50 Urine Blood 1+ (NEGATIVE) 11/09/21 14:50 Urine Nitrite Negative (NEGATIVE) 11/09/21 14:50 Urine Bilirubin Negative (NEGATIVE) 11/09/21 14:50 Urine Urobilinogen Normal (NORMAL) 11/09/21 14:50 Ur Leukocyte Esterase Negative (NEGATIVE) 11/09/21 14:50 Urine RBC 0-2 /HPF (0-3) 11/09/21 14:50 Urine WBC 0-2 /HPF (0-5) 11/09/21 14:50 Ur Squamous Epith Cells Negative /HPF (NEGATIVE) 11/09/21 14:50 Ur Renal Epithelial Cell Rare /HPF (NEGATIVE) 11/09/21 14:50 Urine Bacteria Trace /HPF (NEGATIVE) 11/09/21 14:50 Hyaline Casts Few /LPF (NEGATIVE) 11/09/21 14:50 Granular Casts Moderate /LPF (NEGATIVE) 11/09/21 14:50 Ur Culture Indicated? No/not indicated 11/09/21 14:50 EKG Rhythm: NSR (no acute ST changes) Opioid Opioid Risk Tool Age (Valerio box if 16-45): No History of Preadolescent Sexual Abuse: No Total: 0 Total Score Risk Category: Low Risk Copyright: Duglas VALENTIN predicting aberrant behaviors Discharge Plan Diagnosis Discharge Problem: Community acquired bacterial pneumonia, CHF (congestive heart failure), Bladder cancer metastasized to bone, Pleural effusion, Elevated troponin Discharge Plan Patient Disposition: ADMITTED INPATIENT Condition: Stable Orders to Discharge Patient Discharge Orders: Transfer (Routine); Ordered 11/09/21 Ordered By: Shaka Sagastume ADDITIONAL NOTES Additional Notes Additional Notes: anemia ,elevated dimer ,eleveated troponin ,elevated BNP ,renal faiure ,hyperkalemia ,hx of bladder cancer with mets asprin ,lovenox 70 mg q12( 0.7 ml 2x per day).Spoke with patients family ,Dr Maurer patient physicain and the family also spoke with dr maurer.Pt was made DNR .spoke with Dr Hall who is in call.Pt being admitted forcommunity acquired pneumonia,CHF ,shortness of breath
[2021-11-09 13:15] LABS: BASOPHILS # (AUTO) 0.1 X10^3/uL (0.0-0.1); BASOPHILS % (AUTO) 0.5 % (0.2-1.0); HEMATOCRIT 36.3 % (42.0-54.0); HEMOGLOBIN 11.6 g/dL (13.5-18.0); LYMPHOCYTES # (AUTO) 0.4 X10^3/uL (1.3-2.9); LYMPHOCYTES % (AUTO) 3.1 % (21.0-51.0); MEAN CORPUSCULAR HEMOGLOBIN 28.6 pg (27.0-34.0); MEAN CORPUSCULAR VOLUME 89.3 fL (80.0-100.0); MEAN PLATELET VOLUME 10.5 fL (7.4-11.0); MONOCYTES # (AUTO) 0.5 x10^3/uL (0.3-0.8); NEUTROPHILS # (AUTO) 11.2 x10^3/uL (2.2-4.8); NEUTROPHILS % (AUTO) 92.4 % (42.0-75.0); RED BLOOD COUNT 4.07 X10^6/uL (4.7-6.0); RED CELL DISTRIBUTION WIDTH 14.7 % (11.6-16.5); WHITE BLOOD COUNT 12.1 X10^3/uL (3.6-10.0)
[2021-11-09 13:31] LABS: PLATELET MORPHOLOGY COMMENT NORMAL (NORMAL)
[2021-11-09 13:37] LABS: ALANINE AMINOTRANSFERASE 57 Units/L (12-78); ALBUMIN 2.8 g/dL (3.4-5.0); ALKALINE PHOSPHATASE 871 Units/L (46-116); ASPARTATE AMINO TRANSFERASE 47 Units/L (15-37); BLOOD UREA NITROGEN 51 mg/dL (7-18); CALCIUM 6.4 mg/dL (8.5-10.1); CARBON DIOXIDE 27.5 mmol/L (21-32); CHLORIDE 101 mmol/L (98-107); COR CA(FOR HYPOALB) 7.4 mg/dL (8.5-10.1); CREATINE KINASE 30 Units/L (39-308); CREATININE 1.57 mg/dL (0.70-1.30); SODIUM 133 mmol/L (136-145); TOTAL PROTEIN 6.3 g/dL (6.4-8.2); eGFR NON BLACK RACES 46 (>60)
--- NOTE | 2021-11-09 14:25 | RAD ---
Chest AP portableIndication: DyspneaCOMPARISONNone availableFINDINGSThere is cardiomegaly and sternotomy change with CABG clips noted. Monitor leads obscure minimal detail. There is increased interstitial markings and patchy bilateral pulmonary opacities, somewhat worse in the right lung.IMPRESSION: Cardiomegaly and possible CHF with multifocal patchy pulmonary opacities, worse in the right lung, concerning for developing pneumonia. Follow-up to resolution. Right effusion likely present.There is no pneumothorax.Electronically signed by: BRITTANY MARTIN (Nov 09, 2021 14:23:26)
[2021-11-09] MEDS ORDERED: LASIX IVP ONE ×2 (14:29→14:31)
[2021-11-09] MEDS ORDERED: ECOTRIN TAB 325 MG PO STA (15:15)
[2021-11-09] MEDS ORDERED: LOVENOX INJ 60 MG SYR SC ONE ×2 (15:18→16:21)
[2021-11-09 15:40] LABS: BILIRUBIN,URINE NEGATIVE (NEGATIVE); BLOOD/HEMOGLOBIN,URINE 1+ (NEGATIVE); GLUCOSE, URINE NEGATIVE (NEGATIVE); KETONES,URINE NEGATIVE (NEGATIVE); LEUKOCYTE ESTERASE ,URINE NEGATIVE (NEGATIVE); NITRITES,URINE NEGATIVE (NEGATIVE); PROTEIN,URINE 2+ (NEGATIVE); UROBILINOGEN,URINE NORMAL (NORMAL)
[2021-11-09 15:58] LABS: APPEARANCE,URINE SLIGHTLY HAZY (CLEAR); COLOR,URINE DARK YELLOW (YELLOW)
[2021-11-09 15:59] LABS: BACTERIA,URINE TRACE /HPF (NEGATIVE); HYALINE CASTS, URINE FEW /LPF (NEGATIVE); RBC,URINE 0-2 /HPF (0-3); RENAL EPITHELIAL CELLS,URINE RARE /HPF (NEGATIVE); SQUAMOUS EPITHELIAL CELL,UR NEGATIVE /HPF (NEGATIVE)
[2021-11-09 16:00] LABS: GRANULAR CASTS,URINE MODERATE /LPF (NEGATIVE)
[2021-11-09] MEDS ORDERED: ASPIRIN ONE (16:21)
[2021-11-09] MEDS ORDERED: ZOFRAN INJ 4 MG VIAL IVP ONE (16:50)
[2021-11-09] MEDS ORDERED: ZOFRAN INJ 4 MG VIAL ONE (16:51)
[2021-11-09] MEDS ORDERED: ROCEPHIN 1 GRAM IV PREMIX 1 G/50 ML IV.SOLN. IV SCH (17:04)
[2021-11-09] MEDS ORDERED: NS 250 ML IV 250 ML IV ONE (17:12)
[2021-11-09] MEDS ORDERED: ROCEPHIN VIAL 1 GRAM ONE (17:12)
[2021-11-09] MEDS ORDERED: NS 50 ML IV 50 ML IV ONE (17:12)
[2021-11-09] MEDS ORDERED: TUSSIONEX PENNKINETIC SUSP PO PRN (17:53)
[2021-11-09] MEDS ORDERED: SALINE 3% 15 ML NEB TX NEB ONE (17:56)
[2021-11-09] MEDS ORDERED: ZITHROMAX INJ 500 MG VIAL 500 MG in NS 250 ML IV 250 ML IV SCH (18:00)
[2021-11-09] MEDS: XOPENEX 1.25 MG/3 ML NEBULE NEB SCH (18:05)
[2021-11-09] MEDS: ROBITUSSIN DM PO SCH ×2 (18:18→23:17)
[2021-11-09 18:44] VITALS: BMI 24.7
[2021-11-09] MEDS: PULMICORT NEB TX 0.5 MG NEB SCH (21:35)
[2021-11-10] MEDS: XOPENEX 1.25 MG/3 ML NEBULE NEB SCH ×3 (00:40→13:15)
[2021-11-10] MEDS: MORPHINE SULFATE INJ 2 MG INJ IVP PRN ×5 (05:05→14:01)
[2021-11-10 05:17] LABS: BASOPHILS % (AUTO) 0.3 % (0.2-1.0); EOSINOPHILS # (AUTO) 0.1 x10^3/uL (0.0-0.2); EOSINOPHILS % (AUTO) 0.7 % (0.9-2.9); HEMATOCRIT 33.3 % (42.0-54.0); HEMOGLOBIN 10.9 g/dL (13.5-18.0); LYMPHOCYTES # (AUTO) 0.5 X10^3/uL (1.3-2.9); LYMPHOCYTES % (AUTO) 6.8 % (21.0-51.0); MEAN CORPUSCULAR HEMOGLOBIN 28.9 pg (27.0-34.0); MEAN CORPUSCULAR HGB CONC 32.8 g/dL (33.0-35.0); MEAN CORPUSCULAR VOLUME 88.1 fL (80.0-100.0); MEAN PLATELET VOLUME 10.6 fL (7.4-11.0); MONOCYTES # (AUTO) 0.2 x10^3/uL (0.3-0.8); NEUTROPHILS # (AUTO) 6.9 x10^3/uL (2.2-4.8); NEUTROPHILS % (AUTO) 90.2 % (42.0-75.0); RED BLOOD COUNT 3.78 X10^6/uL (4.7-6.0); RED CELL DISTRIBUTION WIDTH 14.8 % (11.6-16.5); WHITE BLOOD COUNT 7.7 X10^3/uL (3.6-10.0)
[2021-11-10 05:39] LABS: ALANINE AMINOTRANSFERASE 234 Units/L (12-78); ALBUMIN 2.4 g/dL (3.4-5.0); ALKALINE PHOSPHATASE 792 Units/L (46-116); ASPARTATE AMINO TRANSFERASE 228 Units/L (15-37); BLOOD UREA NITROGEN 56 mg/dL (7-18); CARBON DIOXIDE 27.2 mmol/L (21-32); CHLORIDE 100 mmol/L (98-107); CREATININE 1.59 mg/dL (0.70-1.30); SODIUM 134 mmol/L (136-145); TOTAL PROTEIN 5.7 g/dL (6.4-8.2); eGFR NON BLACK RACES 46 (>60)
[2021-11-10 05:50] LABS: CALCIUM 6.1 mg/dL (8.5-10.1); COR CA(FOR HYPOALB) 7.4 mg/dL (8.5-10.1)
[2021-11-10 05:54] LABS: BAND NEUTROPHILS % 3 % (0-10); PLATELET MORPHOLOGY COMMENT NORMAL (NORMAL)
--- NOTE | 2021-11-10 06:07 | RAD ---
Chest AP portableIndication: CHF.Comparison: November 09, 2021FINDINGSIncreased opacity in the right lower lung noted. Some component of effusion possible, but infiltrate is not excluded. Sternotomy and cardiomegaly noted. Monitor leads obscure detail. There is no pneumothorax.IMPRESSIONCardiomegaly with worsening right effusion and right lower lung opacity. Pneumonia possible. Follow-up to resolution. Follow-up with PA and lateral chest to better evaluate.Electronically signed by: BRITTANY MARTIN (Nov 10, 2021 06:05:57)
[2021-11-10] MEDS: PULMICORT NEB TX 0.5 MG NEB SCH (08:45)
[2021-11-10] MEDS ORDERED: ROCEPHIN VIAL 1 GRAM 1 G in NS 100 ML IV 100 ML IV SCH (09:00)
[2021-11-10] MEDS: ROBITUSSIN DM PO SCH ×2 (09:05→12:04)
[2021-11-10] MEDS ORDERED: ZOFRAN INJ 4 MG VIAL IVP PRN (09:57)
--- NOTE | 2021-11-10 13:28 | DR.H&P ---
H&P - History & Physical for Day of: H&P Date: 11/09/21 - Chief Complaint Chief Complaint: SOB, CHEST CONGESTION AND PAIN ALL OVER - History of Present Illness History of Present Illness: PT IS 71 WM, ER ADMISSION AFTER PRESENTING WITH CO PATIENT'S FAMILY C/O PATIENT HAS HAD DECREASED URINE OUTPUT WITH SHORTNESS OF BREATH AND A WET COUGH. FAMILY STATES PATIENT'S HOME HEALTH NURSE ASSESSED LUNG SOUNDS CONSISTENT WITH CHF EXACERBATION. PT HAS KNOWN METATSTATIC BONE DISEASE, CHF, CAD, PAD, HTN. PT WAS ADMITTED FOR TREATMENT OF ACUTE ILLNESS. - Past Medical History Past Medical History: Anxiety, Arthritis, CHF, COPD, Coronary Artery Disease, Dyslipidemia, Hypertension, AR Additional Medical History: METASTATIC BONE DISEASE, PAD - Past Surgical History Surgical History: Appendectomy Additional Surgical History: Angioplasty on legs, Left AKA - Family History Family Medical History: Diabetes Mellitus, Cancer, AR, Hypertension - Social History Does patient currently use any type of tobacco product: No Have you used tobacco products in the last 12 months: Yes Type of Tobacco Use: Cigarettes Does any household member use tobacco: No Alcohol Use: None Drug Use: None - Medications Home Medications: Penicillins Allergy (Verified 07/20/20 19:17) CONTINUE taking the following medications calcium carbonate 600 mg-vitamin D3 5 mcg (200 unit) tablet (Calcium 600 + D(3)) 1 tab PO QDAY 11/09/21 [History] cholecalciferol (vitamin D3) 50 mcg (2,000 unit) tablet 50 mcg PO QDAY 11/09/21 [History] clopidogrel 75 mg tablet 75 mg PO QDAY 11/09/21 [History] cyclobenzaprine 5 mg tablet 5 mg PO TID PRN 11/09/21 [History] diazepam 5 mg tablet (Valium) 5 mg PO Q6H PRN 11/09/21 [History] docusate sodium 100 mg capsule 100 mg PO QDAY 11/09/21 [History] gabapentin 400 mg capsule 400 mg PO TID 11/09/21 [History] mirtazapine 15 mg tablet 15 mg PO QHS 11/09/21 [History] - Review of Systems Constitutional: Sweats, Weakness Eyes: No Symptoms Reported ENT: No Symptoms Reported Respiratory: Cough, SOB with Excertion, Sputum, Wheezing Cardiovascular: No Symptoms Reported Gastrointestinal: Other (POOR PO INTAKE) Genitourinary: Retention Musculoskeletal: Back Pain, Leg Pain Skin: Ecchymosis Neurological: Weakness - Physical Exam Vital Signs: Temperature 98.3 F Pulse Rate 85 Respiratory Rate 20 Blood Pressure [Right Arm] 92/60 Blood Pressure [Left Arm] 130/57 Blood Pressure 136/71 O2 Sat by Pulse Oximetry 97 Oriented: Person Eyes: Normal Ear: Normal Nose: Normal Throat: Normal Respiratory: Diminished Throughout, Rhonchi Throughout Cardiovascular: Tachycardia : Normal Auscultation: Bowel Sounds: Normal Palpation: Normal Tenderness: Normal Skin: Decreased Turgur, Bruising Musculoskeletal: Deformity (LAKA) Psychiatric: Anxiety Affect: Anxious Speech Pattern: Clear, Appropriate - Assessment/Plan (1) CHF (congestive heart failure) Status: Acute Plan: PT ADMITTED TO ICU, RESP THERAPY, CE AND EKG MONITORING. IV ATBX AND IV LASIX WITH STRICT I&OS. VERIFY HOME MEDICATION, CXR ON ADMISSION. SUPPLMENTAL O2, PAIN CONTROL (2) Bladder cancer metastasized to bone Status: Acute (3) COPD (chronic obstructive pulmonary disease) Qualifiers: COPD type: COPD with acute exacerbation Qualified Code(s): J44.1 - Chronic obstructive pulmonary disease with (acute) exacerbation Status: Chronic (4) CAD (coronary artery disease) Status: Chronic (5) Hypertension Status: Chronic - Allergies Allergies/Adverse Reactions: Allergies Allergy/AdvReac Type Severity Reaction Status Date / Time Penicillins Allergy Verified 07/20/20 19:17
[2021-11-10 14:16] VITALS: BP 135/70
== END 2021-11-10 14:17 | disposition hospice, home (50) | DRG 291 ==
LOC: ER 12:09 → ICU 17:04
PROVIDERS: ADMIT Internal Medicine; ATTEND Family Medicine
DX: R06.02 Shortness of breath; J18.8 Other pneumonia, unspecified organism; J90 Pleural effusion, not elsewhere classified; I50.9 Heart failure, unspecified; J44.1 Chronic obstructive pulmonary disease with (acute) exacerbation; I73.9 Peripheral vascular disease, unspecified; I11.0 Hypertensive heart disease with heart failure; R94.5 Abnormal results of liver function studies; I25.10 Atherosclerotic heart disease of native coronary artery without angina pectoris; R77.8 Other specified abnormalities of plasma proteins; C79.51 Secondary malignant neoplasm of bone; E78.2 Mixed hyperlipidemia; C67.9 Malignant neoplasm of bladder, unspecified